=== PATIENT | female | born 1945 | race Caucasian/White ===

== ENCOUNTER 2017-01-07 00:08 | Emergency (ER) | payer OTHER, BC ==
[2017-01-07 01:05] VITALS: BP 129/77; PULSE 88; TEMP 97.9; BMI 28.2
[2017-01-07] MEDS ORDERED: INDOMETHACIN 50 MG CAPSULE PO ONE (01:25)
--- NOTE | 2017-01-07 01:26 | PDOC ---
History of Present Illness - General History Source: Patient Exam Limitations: No Limitations - History of Present Illness Initial Comments: 01/07/17 01:49 The patient is a 71 year old female with significant past medical history of parkinsons disease, hypertension, and gout who presents to the ED for few days of bilateral knee swelling, redness, and pain. Patient also reports pain to the right foot. Denies any trauma to the area. States she has pain upon ambulation, but is still able to ambulate. Patient states she is currently on colchicine. The patient denies fever, chills, cough, SOB, chest pain, and palpitations. The patient denies abdominal pain, nausea, vomiting, and diarrhea. Allergies: NKDA Social History: No alcohol, tobacco, or drug use reported. Past Surgical History: colectomy, appendectomy PCP: Dr. Regulo Flores Neuro: Dr. Truong Lundberg <Lucila Warren - Last Filed: 01/07/17 01:49> - General History Source: Patient <Azam Rai - Last Filed: 01/07/17 03:14> - General Chief Complaint: Pain, Acute Stated Complaint: LEG PAIN Time Seen by Provider: 01/07/17 01:23 Past History <Lucila Warren - Last Filed: 01/07/17 01:49> - Past Medical History Anemia: No Asthma: No Cancer: No Cardiac Disorders: No CVA: No COPD: No CHF: No Dementia: No Diabetes: No GI Disorders: No Disorders: No HTN: Yes Hypercholesterolemia: No Liver Disease: No Seizures: No Thyroid Disease: No - Surgical History Abdominal Surgery: Yes (COLECTOMY) Appendectomy: Yes Cardiac Surgery: No Cholecystectomy: No Lung Surgery: No Neurologic Surgery: No Orthopedic Surgery: No - Psycho/Social/Smoking Cessation Hx Anxiety: No Suicidal Ideation: No Smoking History: Never smoked Have you smoked in the past 12 months: No Information on smoking cessation initiated: No Hx Alcohol Use: No Drug/Substance Use Hx: No Substance Use Type: None Hx Substance Use Treatment: No <Azam Rai - Last Filed: 01/07/17 03:14> - Past Medical History Allergies/Adverse Reactions: Allergies Allergy/AdvReac Type Severity Reaction Status Date / Time No Known Drug Allergies Allergy Verified 12/12/16 14:54 sesame seed Allergy Mild flushing, Uncoded 08/23/14 11:04 itch Home Medications: Ambulatory Orders Ascorbic Acid [Vitamin C -] 1,000 mg PO DAILY 08/10/14 Aspirin [ASA -] 81 mg PO DAILY 08/10/14 Multivitamins [Multivit ([facility] Formulary)] 1 tab PO DAILY 08/10/14 Troy-3 Fatty Acids [Troy-3] 1,000 mg PO DAILY 08/10/14 Ubidecarenone/Vitamin E Mixed [Coq10 Sg 100 Softgel] 1 each PO DAILY 08/10/14 Vitamin B Complex 1 each PO DAILY 08/10/14 Indomethacin [Indocin -] 50 mg PO TID #90 capsule 01/07/17 Olmesartan/Amlodipin/Hcthiazid [Tribenzor 20-5-12.5 mg Tablet] 1 each PO DAILY 01/07/17 Pramipexole Di-HCl [Pramipexole ER] 3.75 mg PO DAILY 01/07/17 Review of Systems - Review of Systems Able to Perform ROS?: Yes Comments:: 01/07/17 01:49 CONSTITUTIONAL: Absent: fever, no chills, no fatigue EYES: Absent: visual changes ENT: Absent: ear pain, no sore throat CARDIOVASCULAR: Absent: chest pain, no palpitations RESPIRATORY: Absent: cough, no SOB GI: Absent: abdominal pain, no nausea, no vomiting, no constipation, no diarrhea GENITOURINARY: Absent: dysuria, no frequency, no hematuria MUSCULOSKELETAL: +bilateral knee pain, redness, and swelling, right foot pain SKIN: Absent: rash NEURO: Absent: headache <Bharrat,Lucila - Last Filed: 01/07/17 01:49> *Physical Exam - Vital Signs Last Vital Signs Temp Pulse Resp BP Pulse Ox 97.9 F 88 16 129/77 98 01/07/17 00:54 01/07/17 00:54 01/07/17 00:54 01/07/17 00:54 01/07/17 00:54 - Physical Exam Comments: 01/07/17 01:49 GENERAL: Well-appearing, well-nourished. No apparent distress. HEENT: Normocephalic, atraumatic. PERRL, EOM intact. CARDIOVASCULAR: Normal S1, S2. Regular rate and rhythm. PULMONARY: Clear to auscultation bilaterally. ABDOMEN: Soft, non-distended, non-tender. EXTREMITIES: Limited ROM of bilateral knees secondary to pain. Bilateral erythema and moderate swelling to both knees. No gross deformities. SKIN: Warm, dry. No rash NEUROLOGICAL: No focal neurological deficits. <Lucila Warren - Last Filed: 01/07/17 01:49> - Vital Signs Last Vital Signs Temp Pulse Resp BP Pulse Ox 97.9 F 88 16 129/77 98 01/07/17 00:54 01/07/17 00:54 01/07/17 00:54 01/07/17 00:54 01/07/17 00:54 <Azam Rai - Last Filed: 01/07/17 03:14> Medical Decision Making - Medical Decision Making 01/07/17 03:14 Dr. Rai: The scribe's documentation has been prepared under my direction and personally reviewed by me in its entirery. I confirm that the note above accurately reflects all work, treatment, procedures, and medical decision making performed by me. <Azam Rai - Last Filed: 01/07/17 03:14> *DC/Admit/Observation/Transfer - Attestations Scribe Attestion: 01/07/17 01:49 Documentation prepared by Lucila Warren, acting as medical assistant dermatology for Azam Rai MD/. <Lucila Warren - Last Filed: 01/07/17 01:49> - Discharge Dispostion Admit: No <Azam Rai - Last Filed: 01/07/17 03:14> Diagnosis at time of Disposition: Knee pain, bilateral Qualifiers: Chronicity: acute Qualified Code(s): M25.561 - Pain in right knee; M25.562 - Pain in left knee Gout Qualifiers: Gout site: knee Gout etiology: unspecified cause Laterality: unspecified laterality - Discharge Dispostion Disposition: HOME Condition at time of disposition: Improved - Prescriptions Prescriptions: Indomethacin [Indocin -] 50 mg PO TID #90 capsule - Referrals Referrals: Regulo Flores MD [Primary Care Provider] - - Patient Instructions Printed Discharge Instructions: DI for Gout, DI for Knee Pain Additional Instructions: take medication as directed with food. Follow up with your doctor as soon as possible. Return if any problems
[2017-01-07] MEDS ORDERED: INDOMETHACIN 25 MG CAPSULE PO ONE (01:30)
[2017-01-07] MEDS ORDERED: MAG HYDROX/AL HYDROX/SIMETH 30 ML UNIT-DOSE CUP ONE (02:17)
== END 2017-01-07 03:37 | disposition home or self-care (01) ==
LOC: JER 00:08
DX: M10.9 Gout, unspecified (principal); M25.562 Pain in left knee; M25.561 Pain in right knee; I10 Essential (primary) hypertension; G20 Parkinson's disease
CPT/HCPCS: 99281-25

== ENCOUNTER 2017-01-10 12:52 | Emergency (ER) | payer OTHER, BC ==
[2017-01-10 13:11] VITALS: BP 126/70; PULSE 98; TEMP 97.9; BMI 28.0
--- NOTE | 2017-01-10 13:12 | PDOC ---
History of Present Illness - General Chief Complaint: Tremors Stated Complaint: PARKINSON'S TREMOR Time Seen by Provider: 01/10/17 12:56 History Source: Patient, Spouse Exam Limitations: No Limitations - History of Present Illness Initial Comments: 01/10/17 13:09 The patient is a 71-year-old female with a significant past medical history of Parkinson's disease, who comes to the emergency department with several days of slowly increasing Parkinson symptoms. She describes shuffling gait, tremor, rigidity. She has not had fever. She is under the care of a neurologist who has been adjusting her medications, primarily by eliminating medications or decreasing doses. She states that she was taking Sinemet at high doses, followed by lower doses, until January 01 when the Sinemet was discontinued and she began to take pramipexole alone. Past History - Past Medical History Allergies/Adverse Reactions: Allergies Allergy/AdvReac Type Severity Reaction Status Date / Time No Known Drug Allergies Allergy Verified 01/07/17 03:27 sesame seed Allergy Mild flushing, Uncoded 01/07/17 03:27 itch Home Medications: Ambulatory Orders Ascorbic Acid [Vitamin C -] 1,000 mg PO DAILY 08/10/14 Aspirin [ASA -] 81 mg PO DAILY 08/10/14 Multivitamins [Multivit ([facility] Formulary)] 1 tab PO DAILY 08/10/14 Marshall-3 Fatty Acids [Marshall-3] 1,000 mg PO DAILY 08/10/14 Ubidecarenone/Vitamin E Mixed [Coq10 Sg 100 Softgel] 1 each PO DAILY 08/10/14 Vitamin B Complex 1 each PO DAILY 08/10/14 Indomethacin [Indocin -] 50 mg PO TID #90 capsule 01/07/17 Olmesartan/Amlodipin/Hcthiazid [Tribenzor 20-5-12.5 mg Tablet] 1 each PO DAILY 01/07/17 Pramipexole Di-HCl [Pramipexole ER] 3.75 mg PO DAILY 01/07/17 Anemia: No Asthma: No Cancer: No Cardiac Disorders: No CVA: No COPD: No CHF: No Dementia: No Diabetes: No GI Disorders: No Disorders: No HTN: Yes Hypercholesterolemia: No Liver Disease: No Seizures: No Thyroid Disease: No - Surgical History Abdominal Surgery: Yes (COLECTOMY) Appendectomy: Yes Cardiac Surgery: No Cholecystectomy: No Lung Surgery: No Neurologic Surgery: No Orthopedic Surgery: No - Psycho/Social/Smoking Cessation Hx Anxiety: No Suicidal Ideation: No Smoking History: Never smoked Have you smoked in the past 12 months: No Hx Alcohol Use: No Drug/Substance Use Hx: No Substance Use Type: None Hx Substance Use Treatment: No Review of Systems - Review of Systems Comments:: 01/10/17 13:11 CONSTITUTIONAL: Absent: fever, chills, fatigue EYES: Absent: visual changes ENT: Absent: ear pain, sore throat CARDIOVASCULAR: Absent: chest pain, palpitations, loss of consciousness RESPIRATORY: Absent: cough, SOB GI: Absent: abdominal pain, nausea, vomiting, constipation, diarrhea GENITOURINARY: Absent: dysuria, frequency, hematuria MUSKULOSKELETAL: Absent: back pain, arthralgia, myalgia SKIN: Absent: rash NEURO: Present: See history of present illness Absent: headache, dizziness *Physical Exam - Physical Exam Comments: 01/10/17 13:12 GENERAL: Well-appearing, well-nourished. No apparent distress. HEENT: Normocephalic, atraumatic. PERRL, EOM intact. CARDIOVASCULAR: Normal S1, S2. Regular rate and rhythm. PULMONARY: Clear to auscultation bilaterally. ABDOMEN: Soft, non-distended, non-tender. EXTREMITIES: Normal ROM in all four extremities. No gross deformities. SKIN: Warm, dry. No rash NEUROLOGICAL: She has a pill-rolling tremor She has a reptillian stare She has cogwheel rigidity in the extremities No focal neurological deficits. Medical Decision Making - Medical Decision Making 01/10/17 13:17 The patient is well-appearing and in no acute distress I discussed the case with Dr. Godinez, covering for Dr. Parnell He will see the patient in follow-up on Wednesday He suggests resumption of her Sinemet 25/103 times daily Clinical impression: Parkinson's disease I discussed the physical exam findings, ancillary test results and final diagnoses with the patient. I answered all of the patient's questions. The patient was satisfied with the care received and felt comfortable with the discharge plan and treatment plan. The patient will call their primary care physician within 24 hours to arrange follow-up and will return to the Emergency Department with any new, persistent or worsening symptoms. A portion of this note was documented by [employer] under my direction. I have reviewed the details of the note, within reason, and agree with the documentation with the following case summary and management plan written by me. *DC/Admit/Observation/Transfer Diagnosis at time of Disposition: Parkinsons disease - Discharge Dispostion Disposition: HOME Condition at time of disposition: Good - Referrals Referrals: Regulo Flores MD [Primary Care Provider] - - Patient Instructions Printed Discharge Instructions: Parkinson's Disease Additional Instructions: Take the Sinemet 25/103 times daily, as you used to take it. Return to the emergency department immediately with ANY new, persistent or worsening symptoms. You MUST call and follow up with your doctor tomorrow. Please make sure your doctor reviews the results of your emergency department evaluation.
== END 2017-01-10 13:25 | disposition home or self-care (01) ==
LOC: FER 12:52
DX: G20 Parkinson's disease (principal)
CPT/HCPCS: 99281-25

== ENCOUNTER 2018-04-03 12:55 | Emergency (ER) | payer OTHER, BC ==
[2018-04-03 13:27] VITALS: BP 115/74; PULSE 75; TEMP 98.1; BMI 29.0
--- NOTE | 2018-04-03 14:20 | PDOC ---
History of Present Illness <Maya Dailey - Last Filed: 04/03/18 17:33> - History of Present Illness Initial Comments: 04/03/18 14:16 72-year-old female with a history of Parkinson's disease presents to the emergency department with 3 weeks of unsteady gait after starting amantadine for Parkinson's. Patient reports she felt well the first week on the medication but after Dr. Parnell doubled the dose on day 7, she began to experience unsteadiness on her feet as well as 1 or 2 episodes of hallucinations. She reports the ability to walk normally most of the time, but then has a sensation that she is being pulled to the right or left. Reports the symptoms occur on both sides. With regards to the hallucinations, she states that she sees the wooden floor move for a few seconds at a time which then resolves. She has not had any falls. Patient has an appointment with Dr. Parnell tomorrow. She presents today because she states she hasn't felt well for the last 5 days and almost fell due to her unsteady gait today. Denies headaches, fevers, chills, chest pain, shortness of breath, cough, abdominal pain, nausea/vomiting/diarrhea, dysuria, frequency or hematuria. <Saji Glover - Last Filed: 04/04/18 07:36> - General Chief Complaint: Tremors Stated Complaint: POOR BALANCE Time Seen by Provider: 04/03/18 13:04 Past History <Maya Dailey - Last Filed: 04/03/18 17:33> - Past Medical History Anemia: No Asthma: No Cancer: No Cardiac Disorders: No CVA: No COPD: No CHF: No Dementia: No Diabetes: No GI Disorders: No Disorders: No HTN: Yes Hypercholesterolemia: No Liver Disease: No Seizures: No Thyroid Disease: No Other medical history: PARKINSON - Surgical History Abdominal Surgery: Yes (COLECTOMY) Appendectomy: Yes Cardiac Surgery: No Cholecystectomy: No Lung Surgery: No Neurologic Surgery: No Orthopedic Surgery: No - Suicide/Smoking/Psychosocial Hx Smoking History: Never smoked Have you smoked in the past 12 months: No Information on smoking cessation initiated: No Hx Alcohol Use: No Drug/Substance Use Hx: No Substance Use Type: None Hx Substance Use Treatment: No <Saji Glover - Last Filed: 04/04/18 07:36> - Past Medical History Allergies/Adverse Reactions: Allergies Allergy/AdvReac Type Severity Reaction Status Date / Time No Known Drug Allergies Allergy Verified 01/07/17 03:27 sesame seed Allergy Mild flushing, Uncoded 01/07/17 03:27 itch Home Medications: Ambulatory Orders Ascorbic Acid [Vitamin C -] 1,000 mg PO DAILY 08/10/14 Aspirin [ASA -] 81 mg PO DAILY 08/10/14 Multivitamins [Multivit ([facility] Formulary)] 1 tab PO DAILY 08/10/14 Vitamin B Complex 1 each PO DAILY 08/10/14 Olmesartan/Amlodipin/Hcthiazid [Tribenzor 20-5-12.5 mg Tablet] 1 each PO DAILY 01/07/17 Pramipexole Di-HCl [Pramipexole ER] 3.75 mg PO DAILY 01/07/17 Amantadine HCl [Gocovri] 137 mg PO BID 04/03/18 Carbidopa/Levodopa 25/100 [Sinemet 25/100 -] 1 each PO TID 04/03/18 Cephalexin [Keflex] 500 mg PO BID #14 capsule 04/03/18 Furosemide [Lasix] 20 mg PO Q2D 04/03/18 Glimepiride 1 mg PO DAILY 04/03/18 Potassium Chloride 10 meq PO Q2D 04/03/18 Review of Systems - Review of Systems Comments:: 04/03/18 14:18 GENERAL/CONSTITUTIONAL: No fever or chills. No weakness. HEAD, EYES, EARS, NOSE AND THROAT: No change in vision. No ear pain or discharge. No sore throat. GASTROINTESTINAL: No nausea, vomiting, diarrhea or constipation. GENITOURINARY: No dysuria, frequency, or change in urination. CARDIOVASCULAR: No chest pain or shortness of breath. RESPIRATORY: No cough, wheezing, or hemoptysis. MUSCULOSKELETAL: No joint or muscle swelling or pain. No neck or back pain. SKIN: No rash NEUROLOGIC: No headache, vertigo, loss of consciousness, or change in strength/ sensation. +unsteady gait ENDOCRINE: No increased thirst. No abnormal weight change. HEMATOLOGIC/LYMPHATIC: No anemia, easy bleeding, or history of blood clots. ALLERGIC/IMMUNOLOGIC: No hives or skin allergy. PSYCH: +hallucinations <Saji Glover - Last Filed: 04/04/18 07:36> *Physical Exam - Vital Signs Last Vital Signs Temp Pulse Resp BP Pulse Ox 98.1 F 75 20 115/74 100 04/03/18 12:58 04/03/18 12:58 04/03/18 12:58 04/03/18 12:58 04/03/18 12:58 <AnitakennethMaya craft - Last Filed: 04/03/18 17:33> - Vital Signs Last Vital Signs Temp Pulse Resp BP Pulse Ox 98.1 F 75 20 115/74 100 04/03/18 12:58 04/03/18 12:58 04/03/18 12:58 04/03/18 12:58 04/03/18 12:58 - Physical Exam Comments: 04/03/18 14:20 GENERAL: Awake, alert, and fully oriented, in no acute distress HEAD: No signs of trauma EYES: PERRLA, EOMI, sclera anicteric, conjunctiva clear ENT: Oropharynx clear without exudates. Moist mucosa LUNGS: Breath sounds equal, clear to auscultation bilaterally. No wheezes, and no crackles HEART: Regular rate and rhythm, normal S1 and S2, no murmurs, rubs or gallops ABDOMEN: Soft, nontender, normoactive bowel sounds. No guarding, no rebound. No masses EXTREMITIES: Full range of motion, no edema. No clubbing or cyanosis. No cords , erythema, or tenderness NEUROLOGICAL: Normal speech, cranial nerves intact, negative pronator drift, 5/ 5 strength in all 4 extremities, normal sensation to light touch in all 4 extremities, normal cerebellar exam, shuffling but mostly steady gait - at one point, pt needed assistance so as not to fall to her right, +LUE pill rolling tremor. Increased tone in all extremities SKIN: Warm, Dry, normal turgor, no rashes or lesions noted. <Saji Glover - Last Filed: 04/04/18 07:36> Heart Score/ECG Review #1 04/04/18 07:35 Twelve-lead EKG was performed and reviewed by me. Normal sinus rhythm, rate 93. Normal axis and intervals. No ST elevations or T-wave inversions. <Saji Glover - Last Filed: 04/04/18 07:36> ED Treatment Course - LABORATORY CBC & Chemistry Diagram: 04/03/18 14:45 04/03/18 14:45 - ADDITIONAL ORDERS Additional order review: Laboratory Results 04/03/18 04/03/18 04/03/18 15:00 14:45 14:45 Sodium 137 Potassium 3.8 Chloride 101 Carbon Dioxide 25 Anion Gap 11 BUN 53 H Creatinine 2.2 H Creat Clearance w eGFR 22.07 Random Glucose 137 H Calcium 10.1 Total Bilirubin 0.9 AST 21 ALT 9 L Alkaline Phosphatase 80 Troponin I < 0.03 Total Protein 7.8 Albumin 4.6 Urine Color Yellow Urine Appearance Hazy Urine pH 5.0 Ur Specific [place] 1.015 Urine Protein Negative Urine Glucose (UA) Negative Urine Ketones Negative Urine Blood Trace-intact H Urine Nitrite Negative Urine Bilirubin Negative Urine Urobilinogen 0.2 Ur Leukocyte Esterase 3+ H Urine RBC 2-5 Urine WBC 40-60 Ur Epithelial Cells Few Urine Bacteria Moderate 04/03/18 14:45 RBC 4.47 MCV 93.1 MCHC 32.2 RDW 12.7 MPV 8.5 Neutrophils % 69.2 Lymphocytes % 23.4 Monocytes % 6.5 Eosinophils % 0.3 Basophils % 0.6 <Maya Dailey - Last Filed: 04/03/18 17:33> - LABORATORY CBC & Chemistry Diagram: 04/03/18 14:45 04/03/18 14:45 - RADIOLOGY Radiology Studies Ordered: Category Date Time Status HEAD CT WITHOUT CONTRAST [CT] Stat CT Scan 04/03/18 14:12 Ordered <Saji Glover - Last Filed: 04/04/18 07:36> Medical Decision Making - Medical Decision Making 04/03/18 17:33 Dr. Armijo was called and this patient's case was discussed. <Maya Dailey - Last Filed: 04/03/18 17:33> - Medical Decision Making 04/03/18 14:24 72yo F hx parkinsons presents to the ED with 3 weeks of unsteady gait and intermittent hallucinations after starting amantadine. Vitals wnl. Exam tremors , rigidity, shuffling gait, some unsteadiness consistent with known parkinsons disease. Sxs likely 2/2 medication side effect vs progression of disease vs much less likely, CVA. Plan labs, UA, CTH, discuss with Dr. Parnell. 04/03/18 18:15 CT head negative for acute pathology. Labs remarkable for creatinine of 2.2 and BUN of 53. Previous print controller in our EMR from years ago wnl. UA with 3+ LE and 40 WBCs, consistent with UTI Symptoms likely 2/2 medication and UTI Case discussed with Dr. Dao (covering for Dr. Parnell) Recommends decreasing Gocovri to half dose again Also recommends admission if pt lives alone for safety (due to gait unsteadiness ), pt lives with and sons. Case discussed with pt's PMD Dr. Armijo Nail Machine Operator has been hovering around 1.6 to 2 and thus 2.2 is not far off her baseline Recommends hydrating with 1L NS, which has been given. Wants us to DC pt and have her see him tomorrow Will treat UTI with keflex (bactrim with interactions with carbidopa) Pt also instructed to take half dose Gocovri Has f/u with Dr. Parnell tomorrow and Dr. Armijo is expecting her as well Pt feels better, requests DC home I discussed the physical exam findings, ancillary test results and final diagnoses with the patient. I answered all of the patient's questions. The patient was satisfied with the care received and felt comfortable with the discharge plan and treatment plan. The patient will call their primary care physician within 24 hours to arrange follow-up and will return to the Emergency Department with any new, persistent or worsening symptoms. <Saji Glover - Last Filed: 04/04/18 07:36> *DC/Admit/Observation/Transfer <Maya Dailey - Last Filed: 04/03/18 17:33> - Discharge Dispostion Decision to Admit order: No - Attestations Physician Attestion: 04/03/18 18:27 I, Dr. Saji Glover MD, attest that this document has been prepared under my direction and personally reviewed by me in its entirety. I further attest, that it accurately reflects all work, treatment, procedures and medical decision -making performed by me. <Saji Glover - Last Filed: 04/04/18 07:36> Diagnosis at time of Disposition: UTI (urinary tract infection), CKD (chronic kidney disease), Adverse drug effect - Discharge Dispostion Disposition: HOME Condition at time of disposition: Stable - Prescriptions Prescriptions: Cephalexin [Keflex] 500 mg PO BID #14 capsule - Patient Instructions Printed Discharge Instructions: DI for Urinary Tract Infection (UTI), DI for Adverse Drug Reaction -- Other Additional Instructions: As discussed, cut your Gocovri dose in half. Take the same dose you took when you initially started the medication Follow up with Dr. Parnell tomorrow as scheduled at 11am Also, follow up with Dr. Armijo tomorrow, call his office in the morning as he is expecting you Stay hydrated Be careful when walking and use a cane for assistance Return to the emergency department if you have any new, worsening, or concerning symptoms
[2018-04-03 15:03] LABS: BASO % 0.6 % (0-2.0); EOS % 0.3 % (0-4.5); HEMATOCRIT 41.6 % (32.4-45.2); HEMOGLOBIN 13.4 GM/dl (10.7-15.3); LYMPH % 23.4 % (8-40); MCHC 32.2 g/dl (32.0-36.0); MEAN CELL VOLUME 93.1 fl (80-96); MEAN PLT VOLUME 8.5 fl (7.5-11.1); MONO % 6.5 % (3.8-10.2); NEUT % 69.2 % (42.8-82.8); PLATELET COUNT 252 K/MM3 (134-434); RBC 4.47 M/mm3 (3.60-5.2); RDW 12.7 % (11.6-15.6); WHITE BLOOD COUNT 8.3 K/mm3 (4.0-10.8)
[2018-04-03 15:13] LABS: URINE BILIRUBIN Negative (NEGATIVE); URINE COLOR Yellow; URINE GLUCOSE (UA) Negative (NEGATIVE); URINE KETONE Negative (NEGATIVE); URINE NITRITE Negative (NEGATIVE); URINE PROTEIN Negative (NEGATIVE); URINE UROBILINOGEN 0.2 (0.2-1.0)
[2018-04-03 15:14] LABS: URINE APPEARANCE HAZY; URINE LEUK ESTERASE 3+ (NEGATIVE)
[2018-04-03 15:15] LABS: ALBUMIN 4.6 g/dl (3.5-5.0); ALK PHOS 80 U/L (32-92); ANION GAP 11 MMOL/L (8-16); BILIRUBIN,TOTAL 0.9 mg/dl (0.2-1.0); BLOOD UREA NITROGEN 53 mg/dl (7-18); CALCIUM 10.1 mg/dl (8.4-10.2); CHLORIDE 101 mmol/L (98-107); CO2 25 mmol/L (22-28); CREATININE 2.2 mg/dl (0.6-1.3); GLUCOSE,RANDOM 137 mg/dl (74-106); POTASSIUM 3.8 mmol/L (3.5-5.1); SGOT/AST 21 U/L (10-42); SGPT/ALT 9 U/L (10-40); SODIUM 137 mmol/L (136-145); TOT PROT 7.8 g/dl (6.4-8.3)
[2018-04-03 15:39] LABS: EPI CELLS FEW /HPF; URINE BACTERIA MODERATE /hpf (NEGATIVE); URINE WBC 40-60 (0-5)
[2018-04-03] MEDS ORDERED: SODIUM CHLORIDE 1,000 ML IV STA (17:37)
--- NOTE | 2018-04-04 12:18 | EKG ---
Test Reason : Blood Pressure : / mmHG Vent. Rate : 093 BPM Atrial Rate : 093 BPM P-R Int : 186 ms QRS Dur : 086 ms QT Int : 348 ms P-R-T Axes : 000 -10 041 degrees QTc Int : 432 ms NORMAL SINUS RHYTHM MODERATE VOLTAGE CRITERIA FOR LVH, MAY BE NORMAL VARIANT BORDERLINE ECG WHEN COMPARED WITH ECG OF 10-AUG-2014 14:23, NO SIGNIFICANT CHANGE WAS FOUND Confirmed by JODY BROWER MD ([id number]) on 04/04/2018 12:17:46 PM Referred By: DR STRONG Confirmed By:JODY BROWER MD
== END 2018-04-03 18:56 | disposition home or self-care (01) ==
LOC: FER 12:55
PROC: 3E0337Z Introduction of Electrolytic and Water Balance Substance into Peripheral Vein, Percutaneous Approach (ICD-10-PCS; principal; 2018-04-03)
DX: N39.0 Urinary tract infection, site not specified (principal); T50.905A Adverse effect of unspecified drugs, medicaments and biological substances, initial encounter; Y92.9 Unspecified place or not applicable; N18.9 Chronic kidney disease, unspecified
CPT/HCPCS: 36415; 70450-TC; 80053; 81003; 81015; 84484; 85025; 87086; 87186; 93005; 99281-25; J7030

== ENCOUNTER 2018-06-20 10:18 | Emergency (ER) | payer OTHER, BC ==
--- NOTE | 2018-06-20 10:36 | PDOC ---
Attending Attestation - Resident Resident Name: RenyJuve - ED Attending Attestation I have performed the following: I have examined & evaluated the patient, The case was reviewed & discussed with the resident, I agree w/resident's findings & plan, Exceptions are as noted - HPI HPI: 73 yo F history Parkinson's disease presents with swelling to BLE. She states she has been taking Gocovri, has been getting swelling in her legs that she attributes to it. No other changes in medication. She follows with Dr. Parnell for neuro and Dr. Craft for renal. She has been taking lasix as prescribed. - Physicial Exam PE: GENERAL: Awake, alert, and fully oriented, in no acute distress HEAD: No signs of trauma EYES: PERRLA, EOMI, sclera anicteric, conjunctiva clear ENT: Auricles normal inspection, hearing grossly normal, nares patent, oropharynx clear without exudates. Moist mucosa NECK: Normal ROM, supple, no lymphadenopathy, JVD, or masses LUNGS: Breath sounds equal, clear to auscultation bilaterally. No wheezes, and no crackles HEART: Regular rate and rhythm, normal S1 and S2, no murmurs, rubs or gallops ABDOMEN: Soft, nontender, normoactive bowel sounds. No guarding, no rebound. No masses EXTREMITIES: Normal range of motion, 2+ pitting edema to feet and ankles B/L. No clubbing or cyanosis. No cords, erythema, or tenderness NEUROLOGICAL: Cranial nerves II through XII grossly intact. Normal speech, normal gait. Motor and sensation intact. SKIN: Warm, Dry, normal turgor, no rashes or lesions noted. - Medical Decision Making Pt with progressive BLE edema that has been causing pain when she walks. It has been attributed to her Parkinson's medication, and she takes lasix for it. No signs of renal failure or CHF on exam (and on labs). D/w Dr. Craft- recommended 80mg lasix IVP. He has an appointment with her tomorrow.
[2018-06-20 10:40] VITALS: BP 153/77; PULSE 80; TEMP 97.8; BMI 29.9
[2018-06-20 11:16] LABS: BASO % 0.4 % (0-2.0); EOS % 0.3 % (0-4.5); HEMATOCRIT 35.3 % (32.4-45.2); HEMOGLOBIN 11.9 GM/dl (10.7-15.3); LYMPH % 16.3 % (8-40); MCH 30.3 pg (25.7-33.7); MCHC 33.6 g/dl (32.0-36.0); MEAN PLT VOLUME 7.7 fl (7.5-11.1); MONO % 4.6 % (3.8-10.2); NEUT % 78.4 % (42.8-82.8); PLATELET COUNT 245 K/MM3 (134-434); RBC 3.92 M/mm3 (3.60-5.2); RDW 12.6 % (11.6-15.6); WHITE BLOOD COUNT 9.2 K/mm3 (4.0-10.8)
--- NOTE | 2018-06-20 11:27 | PDOC ---
History of Present Illness <Radha Wray - Last Filed: 06/20/18 13:37> - General History Source: Patient Exam Limitations: No Limitations - History of Present Illness Initial Comments: 06/20/18 11:17 73 yo female pmh of Parkinson, CKD, borderline diabetes and HTN presents to the ED for 2 weeks of bilateral foot swelling, right worse than left Pt states she takes medications as prescribed including 60mg furosemide daily but within the last week the swelling has gotten progressively worse despite this. Pt states she saw her Pole Maker today who advised her to visit the ER for the swelling. Of note, pt has a follow up appointment with Nephrology (Dr. Arlene Craft) at 11 45 am tomorrow morning. Pt denies recent travel or immobility, calf or foot pain, CP, SOB, PND, F/C/N/V, abdominal pain or changes in bowel/bladder habits. <Juve Oglesby - Last Filed: 06/20/18 14:04> - General Chief Complaint: Edema Stated Complaint: GARRICK FOOT SWELLING, R > L, PAIN Time Seen by Provider: 06/20/18 10:29 Past History <Radha Wray - Last Filed: 06/20/18 13:37> - Past Medical History Anemia: No Asthma: No Cancer: No Cardiac Disorders: No CVA: No COPD: No CHF: No Dementia: No Diabetes: No GI Disorders: No Disorders: No HTN: Yes Hypercholesterolemia: No Liver Disease: No Seizures: No Thyroid Disease: No Other medical history: PARKINSON'S, ENDOMETRIOSIS - Surgical History Abdominal Surgery: Yes (COLECTOMY) Appendectomy: Yes Cardiac Surgery: No Cholecystectomy: No Lung Surgery: No Neurologic Surgery: No Orthopedic Surgery: No - Suicide/Smoking/Psychosocial Hx Smoking History: Never smoked Have you smoked in the past 12 months: No Hx Alcohol Use: No Drug/Substance Use Hx: No Substance Use Type: None Hx Substance Use Treatment: No <Juve Oglesby - Last Filed: 06/20/18 14:04> - Past Medical History Allergies/Adverse Reactions: Allergies Allergy/AdvReac Type Severity Reaction Status Date / Time No Known Drug Allergies Allergy Verified 06/20/18 10:20 sesame seed Allergy Mild flushing, Uncoded 06/20/18 10:20 itch Home Medications: Ambulatory Orders Carbidopa/Levodopa 25/100 [Sinemet 25/100 -] 1 each PO HS 06/20/18 Carbidopa/Levodopa [Sinemet 10-100 mg Tablet] 1 each PO QID 06/20/18 Furosemide 60 mg PO DAILY 06/20/18 Glimepiride 1 mg PO DAILY 06/20/18 Metoprolol Succinate [Toprol Xl] 50 mg PO BID 06/20/18 Multivitamin [One Daily] 1 each PO DAILY 06/20/18 Potassium Chloride [K-Dur -] 10 meq PO DAILY 06/20/18 Pramipexole Di-HCl [Pramipexole ER] 0.375 mg PO DAILY 06/20/18 Review of Systems - Review of Systems Constitutional: No: Chills, Fever Respiratory: No: Orthopnea, Shortness of Breath Cardiac (ROS): Yes: Edema (bilateral feet). No: Chest Pain ABD/GI: No: Constipated, Diarrhea, Nausea, Vomiting : No: Burning, Dysuria Musculoskeletal: No: Muscle Pain, Muscle Weakness Integumentary: No: Change in Color, Erythema Neurological: No: Weakness <Juve Oglesby - Last Filed: 06/20/18 14:04> *Physical Exam - Vital Signs Last Vital Signs Temp Pulse Resp BP Pulse Ox 97.8 F 80 18 153/77 99 06/20/18 10:18 06/20/18 10:18 06/20/18 10:18 06/20/18 10:18 06/20/18 10:18 <Radha Wray - Last Filed: 06/20/18 13:37> - Vital Signs Last Vital Signs Temp Pulse Resp BP Pulse Ox 97.8 F 80 18 153/77 99 06/20/18 10:18 06/20/18 10:18 06/20/18 10:18 06/20/18 10:18 06/20/18 10:18 - Physical Exam General Appearance: Yes: Nourished, Appropriately Dressed. No: Apparent Distress HEENT: positive: EOMI Respiratory/Chest: positive: Lungs Clear, Normal Breath Sounds. negative: Crackles, Rhonchi, Wheezing Cardiovascular: positive: Regular Rhythm, Regular Rate, S1, S2, Edema (1+ pitting bilateral feet). negative: JVD, Murmur Vascular Pulses: Dorsalis-Pedis (R): 3+, Doralis-Pedis (L): 3+ Gastrointestinal/Abdominal: positive: Flat, Soft. negative: Pulsatile Mass, Distended, Guarding, Rebound, Tenderness Extremity: positive: Normal Capillary Refill, Other (no warmth). negative: Erythema, Inflammation Integumentary: positive: Normal Color, Dry, Warm Neurologic: positive: Fully Oriented, Alert, Normal Mood/Affect, Normal Response <Juve Oglesby - Last Filed: 06/20/18 14:04> Moderate Sedation - Procedure Monitoring Vital Signs: Procedure Monitoring Vital Signs Temperature 97.8 F 06/20/18 10:18 Pulse Rate 80 06/20/18 10:18 Respiratory Rate 18 06/20/18 10:18 Blood Pressure 153/77 06/20/18 10:18 O2 Sat by Pulse Oximetry (%) 99 06/20/18 10:18 <Radha Wray - Last Filed: 06/20/18 13:37> - Procedure Monitoring Vital Signs: Procedure Monitoring Vital Signs Temperature 97.8 F 06/20/18 10:18 Pulse Rate 80 06/20/18 10:18 Respiratory Rate 18 06/20/18 10:18 Blood Pressure 153/77 06/20/18 10:18 O2 Sat by Pulse Oximetry (%) 99 06/20/18 10:18 <Juve Oglesby - Last Filed: 06/20/18 14:04> ED Treatment Course - LABORATORY CBC & Chemistry Diagram: 06/20/18 11:07 06/20/18 11:07 - ADDITIONAL ORDERS Additional order review: Laboratory Results 06/20/18 11:07 Sodium 138 Potassium 3.7 Chloride 99 Carbon Dioxide 29 H Anion Gap 10 BUN 30 H Creatinine 1.3 Creat Clearance w eGFR 40.38 Random Glucose 220 H D Calcium 9.2 Total Bilirubin 0.8 AST 16 D ALT < 8 L Alkaline Phosphatase 98 H B-Natriuretic Peptide 128.8 H Total Protein 6.9 Albumin 3.6 06/20/18 11:07 RBC 3.92 MCV 90.0 MCHC 33.6 RDW 12.6 MPV 7.7 Neutrophils % 78.4 Lymphocytes % 16.3 Monocytes % 4.6 Eosinophils % 0.3 Basophils % 0.4 - Medications Given in the ED: ED Medications Discontinued Medications Generic Name Dose Route Start Last Admin Trade Name Freq PRN Reason Stop Dose Admin Furosemide 80 mg 06/20/18 12:58 06/20/18 13:17 Lasix Injection - IVPB 06/20/18 12:59 80 mg ONCE ONE Administration <Radha Wray - Last Filed: 06/20/18 13:37> - LABORATORY CBC & Chemistry Diagram: 06/20/18 11:07 06/20/18 11:07 <Juve Oglesby - Last Filed: 06/20/18 14:04> Medical Decision Making - Medical Decision Making 06/20/18 12:[address] Craft who would like the patient to be given 80 mg IV lasix and if stable can follow up with him tomorrow for her appointment at 11:45 am <Juve Oglesby - Last Filed: 06/20/18 14:04> *DC/Admit/Observation/Transfer - Discharge Dispostion Decision to Admit order: No <Radha Wray - Last Filed: 06/20/18 13:37> <Juve Oglesby - Last Filed: 06/20/18 14:04> Diagnosis at time of Disposition: Peripheral edema - Discharge Dispostion Disposition: HOME Condition at time of disposition: Stable - Patient Instructions Printed Discharge Instructions: DI for Peripheral Edema -- Bilateral Additional Instructions: Please make appointment with your Family Doctor within the next 24-48 hours. Keep and make it to your appointment tomorrow at 11 45 am with nephrology. Return to the Emergency Room for new or worsening symptoms including but not limited to: shortness of breath, wheezing, calf tenderness, chest pain. Continue taking your home dosed medications including Furosemide. Thank you
[2018-06-20 11:46] LABS: ALBUMIN 3.6 g/dl (3.5-5.0); ALK PHOS 98 U/L (32-92); ANION GAP 10 MMOL/L (8-16); BILIRUBIN,TOTAL 0.8 mg/dl (0.2-1.0); BLOOD UREA NITROGEN 30 mg/dl (7-18); CALCIUM 9.2 mg/dl (8.4-10.2); CHLORIDE 99 mmol/L (98-107); CO2 29 mmol/L (22-28); CREATININE 1.3 mg/dl (0.6-1.3); GLUCOSE,RANDOM 220 mg/dl (74-106); POTASSIUM 3.7 mmol/L (3.5-5.1); SGOT/AST 16 U/L (10-42); SODIUM 138 mmol/L (136-145); TOT PROT 6.9 g/dl (6.4-8.3)
[2018-06-20 11:53] LABS: SGPT/ALT < 8 U/L (10-40)
[2018-06-20 12:29] LABS: N-TERMINAL BNP 128.8 pg/ml (5-125)
[2018-06-20] MEDS ORDERED: FUROSEMIDE 100 MG/10 ML INJECTABLE VIAL IVPB ONE (12:58)
[2018-06-20] MEDS ORDERED: FUROSEMIDE 40 MG/4 ML INJECTABLE VIAL ONE (13:02)
== END 2018-06-20 14:09 | disposition home or self-care (01) ==
LOC: FER 10:18
PROC: 3E033GC Introduction of Other Therapeutic Substance into Peripheral Vein, Percutaneous Approach (ICD-10-PCS; principal; 2018-06-20)
DX: R73.03 Prediabetes (principal); G20 Parkinson's disease; I12.9 Hypertensive chronic kidney disease with stage 1 through stage 4 chronic kidney disease, or unspecified chronic kidney disease; N18.9 Chronic kidney disease, unspecified
CPT/HCPCS: 36415; 80053; 83880; 85025; 96374; 99284-25

== ENCOUNTER 2018-06-27 15:18 | Inpatient (IN) | payer OTHER, BC ==
--- NOTE | 2018-06-27 15:43 | PDOC ---
Rapid Medical Evaluation Chief Complaint: Pain, Acute Time Seen by Provider: 06/27/18 15:38 Medical Evaluation: Allergies Allergy/AdvReac Type Severity Reaction Status Date / Time No Known Drug Allergies Allergy Verified 06/20/18 10:20 sesame seed Allergy Mild flushing, Uncoded 06/20/18 10:20 itch 06/27/18 15:38 I have performed a brief in-person evaluation of this patient. The patient presents with a chief complaint of:bilateral leg pain / + parkinsons Pertinent physical exam findings: +peripheral edema with blistering. ? redness/ was seen at [place] last week for same and started on Lasix I have ordered the following: Cmp/ CbC/ BNP The patient will proceed to the ED for further evaluation. Discharge Disposition - Diagnosis Leg pain Qualifiers: Laterality: bilateral Qualified Code(s): M79.604 - Pain in right leg; M79.605 - Pain in left leg - Referrals Referrals: Fermín Tristan MD [Primary Care Provider] - - Patient Instructions - Post Discharge Activity
[2018-06-27 16:20] LABS: BASO % 0.4 % (0-2.0); EOS % 0.4 % (0-4.5); HEMATOCRIT 34.2 % (32.4-45.2); LYMPH % 15.1 % (8-40); MCH 30.6 pg (25.7-33.7); MEAN CELL VOLUME 87.5 fl (80-96); MEAN PLT VOLUME 7.8 fl (7.5-11.1); MONO % 7.2 % (3.8-10.2); NEUT % 76.9 % (42.8-82.8); PLATELET COUNT 265 K/MM3 (134-434); RBC 3.91 M/mm3 (3.60-5.2); RDW 13.1 % (11.6-15.6); WHITE BLOOD COUNT 9.7 K/mm3 (4.0-10.0)
[2018-06-27 16:57] LABS: ALBUMIN 3.4 g/dl (3.4-5.0); ALK PHOS 120 U/L (45-117); ANION GAP 9 MMOL/L (8-16); BILIRUBIN,TOTAL 0.5 mg/dL (0.2-1); BLOOD UREA NITROGEN 25 mg/dL (7-18); CALCIUM 8.8 mg/dL (8.5-10.1); CHLORIDE 101 mmol/L (98-107); CO2 28 mmol/L (21-32); CREATININE 1.3 mg/dL (0.55-1.3); GLUCOSE,RANDOM 169 mg/dL (74-106); N-TERMINAL BNP 211.4 pg/ml (5-125); POTASSIUM 3.5 mmol/L (3.5-5.1); SGOT/AST 15 U/L (15-37); SGPT/ALT 8 U/L (13-61); SODIUM 138 mmol/L (136-145); TOT PROT 7.2 g/dl (6.4-8.2)
--- NOTE | 2018-06-27 17:29 | PDOC ---
History of Present Illness <Pura Bean - Last Filed: 06/27/18 17:36> - General History Source: Patient Exam Limitations: No Limitations - History of Present Illness Initial Comments: 06/27/18 18:07 The patient is a 73 year old female, with a significant past medical history of chronic renal insufficiency and Parkinsons disease, who presents to the emergency department with increasing bilateral lower extremity edema for the past 3 weeks. The patient most recently saw her PCP (Dr. Armijo) four days ago and has been taking 60 mg Lasix daily. She presents to the emergency department today because the lower extremity edema is causing her increasing pain. The patient denies fever, chills, shortness of breath or chest pain. Allergies: None reported. Past Surgical History: Appendectomy; Colectomy. Social History: Non-smoker. Denies alcohol or drug use. PCP: Dr. Armijo <Dolores Singh - Last Filed: 06/27/18 18:38> - General Chief Complaint: Edema Stated Complaint: LEG PAIN Time Seen by Provider: 06/27/18 15:38 Past History - Past Medical History Anemia: No Asthma: No Cancer: No Cardiac Disorders: No CVA: No COPD: No CHF: No Dementia: No Diabetes: No GI Disorders: No Disorders: No HTN: Yes Hypercholesterolemia: No Liver Disease: No Seizures: No Thyroid Disease: No - Surgical History Abdominal Surgery: Yes (COLECTOMY) Appendectomy: Yes Cardiac Surgery: No Cholecystectomy: No Lung Surgery: No Neurologic Surgery: No Orthopedic Surgery: No - Immunization History Immunization Up to Date: No - Suicide/Smoking/Psychosocial Hx Smoking History: Never smoked Have you smoked in the past 12 months: No Information on smoking cessation initiated: No Hx Alcohol Use: No Drug/Substance Use Hx: No Substance Use Type: None Hx Substance Use Treatment: No <Pura Bean - Last Filed: 06/27/18 17:36> <Dolores Singh - Last Filed: 06/27/18 18:38> - Past Medical History Allergies/Adverse Reactions: Allergies Allergy/AdvReac Type Severity Reaction Status Date / Time No Known Drug Allergies Allergy Verified 06/20/18 10:20 sesame seed Allergy Mild flushing, Uncoded 06/20/18 10:20 itch Home Medications: Ambulatory Orders Carbidopa/Levodopa 25/100 [Sinemet 25/100 -] 1 each PO HS 06/20/18 Carbidopa/Levodopa [Sinemet 10-100 mg Tablet] 1 each PO QID 06/20/18 Furosemide 60 mg PO DAILY 06/20/18 Glimepiride 1 mg PO DAILY 06/20/18 Metoprolol Succinate [Toprol Xl] 50 mg PO BID 06/20/18 Multivitamin [One Daily] 1 each PO DAILY 06/20/18 Potassium Chloride [K-Dur -] 10 meq PO DAILY 06/20/18 Pramipexole Di-HCl [Pramipexole ER] 0.375 mg PO DAILY 06/20/18 Review of Systems - Review of Systems Able to Perform ROS?: Yes Comments:: 06/27/18 18:08 GENERAL/CONSTITUTIONAL: No fever or chills. No weakness. HEAD, EYES, EARS, NOSE AND THROAT: No change in vision. No ear pain or discharge. No sore throat. CARDIOVASCULAR: No chest pain or shortness of breath. RESPIRATORY: No cough, wheezing, or hemoptysis. GASTROINTESTINAL: No nausea, vomiting, diarrhea or constipation. GENITOURINARY: No dysuria, frequency, or change in urination. MUSCULOSKELETAL: No joint or muscle swelling or pain. No neck or back pain. EXTREMITY: +Bilateral lower extremity edema. SKIN: +Right lower extremity erythema. NEUROLOGIC: No headache, vertigo, loss of consciousness, or change in strength/ sensation. ENDOCRINE: No increased thirst. No abnormal weight change. HEMATOLOGIC/LYMPHATIC: No anemia, easy bleeding, or history of blood clots. ALLERGIC/IMMUNOLOGIC: No hives or skin allergy. <Dolores Singh - Last Filed: 06/27/18 18:38> *Physical Exam - Vital Signs Last Vital Signs Temp Pulse Resp BP Pulse Ox 98.4 F 93 H 16 117/76 95 06/27/18 15:39 06/27/18 15:39 06/27/18 15:39 06/27/18 15:39 06/27/18 15:39 <Pura Bean - Last Filed: 06/27/18 17:36> - Vital Signs Last Vital Signs Temp Pulse Resp BP Pulse Ox 98.4 F 93 H 16 117/76 95 06/27/18 15:39 06/27/18 15:39 06/27/18 15:39 06/27/18 15:39 06/27/18 15:39 - Physical Exam Comments: 06/27/18 18:03 GENERAL: Awake, alert, and fully oriented, in no acute distress. HEAD: No signs of trauma. EYES: PERRLA, EOMI, sclera anicteric, conjunctiva clear. ENT: Auricles normal inspection, hearing grossly normal, nares patent, oropharynx clear without exudates. Moist mucosa. NECK: Normal ROM, supple, no lymphadenopathy, JVD, or masses. LUNGS: Breath sounds equal, clear to auscultation bilaterally. No wheezes, no crackles, no rales. HEART: Regular rate and rhythm, normal S1 and S2, no murmurs, rubs or gallops. ABDOMEN: Protuberant abdomen. Soft, nontender, normoactive bowel sounds. No guarding, no rebound. No masses. EXTREMITIES: +2 bilateral lower extremity edema. Normal range of motion. No clubbing or cyanosis. NEUROLOGICAL: Cranial nerves II through XII intact. Normal speech, gait deferred. SKIN: Erythema of the bilateral feet and right leg with an overlying 3cm blister to the right lower extremity. Warm, dry, normal turgor. <Dolores Singh - Last Filed: 06/27/18 18:38> Moderate Sedation - Procedure Monitoring Vital Signs: Procedure Monitoring Vital Signs Temperature 98.4 F 06/27/18 15:39 Pulse Rate 93 H 06/27/18 15:39 Respiratory Rate 16 06/27/18 15:39 Blood Pressure 117/76 06/27/18 15:39 O2 Sat by Pulse Oximetry (%) 95 06/27/18 15:39 <Pura Bean - Last Filed: 06/27/18 17:36> - Procedure Monitoring Vital Signs: Procedure Monitoring Vital Signs Temperature 98.4 F 06/27/18 15:39 Pulse Rate 93 H 06/27/18 15:39 Respiratory Rate 16 06/27/18 15:39 Blood Pressure 117/76 06/27/18 15:39 O2 Sat by Pulse Oximetry (%) 95 06/27/18 15:39 <Dolores Singh - Last Filed: 06/27/18 18:38> ED Treatment Course - LABORATORY CBC & Chemistry Diagram: 06/27/18 15:53 06/27/18 15:53 - ADDITIONAL ORDERS Additional order review: Laboratory Results 06/27/18 15:53 Sodium 138 Potassium 3.5 Chloride 101 Carbon Dioxide 28 Anion Gap 9 BUN 25 H Creatinine 1.3 Creat Clearance w eGFR 40.38 Random Glucose 169 H Calcium 8.8 Total Bilirubin 0.5 AST 15 ALT 8 L Alkaline Phosphatase 120 H B-Natriuretic Peptide 211.4 H Total Protein 7.2 Albumin 3.4 06/27/18 15:53 RBC 3.91 MCV 87.5 MCHC 35.0 RDW 13.1 MPV 7.8 D Neutrophils % 76.9 D Lymphocytes % 15.1 D Monocytes % 7.2 Eosinophils % 0.4 Basophils % 0.4 - RADIOLOGY Radiology Studies Ordered: Category Date Time Status DUPLEX VASCUL US-1 LEG [US] Stat Ultrasound 06/27/18 17:16 Ordered <Pura Bean - Last Filed: 06/27/18 17:36> - LABORATORY CBC & Chemistry Diagram: 06/27/18 15:53 06/27/18 15:53 - ADDITIONAL ORDERS Additional order review: Laboratory Results 06/27/18 15:53 Sodium 138 Potassium 3.5 Chloride 101 Carbon Dioxide 28 Anion Gap 9 BUN 25 H Creatinine 1.3 Creat Clearance w eGFR 40.38 Random Glucose 169 H Calcium 8.8 Total Bilirubin 0.5 AST 15 ALT 8 L Alkaline Phosphatase 120 H B-Natriuretic Peptide 211.4 H Total Protein 7.2 Albumin 3.4 06/27/18 15:53 RBC 3.91 MCV 87.5 MCHC 35.0 RDW 13.1 MPV 7.8 D Neutrophils % 76.9 D Lymphocytes % 15.1 D Monocytes % 7.2 Eosinophils % 0.4 Basophils % 0.4 <Dolores Singh - Last Filed: 06/27/18 18:38> Medical Decision Making - Medical Decision Making 06/27/18 17:54 Documentation prepared by Dolores Singh, acting as director of medical review for Pura Bean MD. <Dolores Singh - Last Filed: 06/27/18 18:38> *DC/Admit/Observation/Transfer - Discharge Dispostion Decision to Admit order: Yes <Pura Bean - Last Filed: 06/27/18 17:36> <SamanthaDolores - Last Filed: 06/27/18 18:38> Diagnosis at time of Disposition: Parkinsons disease, Peripheral edema, Cellulitis of lower leg, Head injury Leg pain Qualifiers: Laterality: bilateral Qualified Code(s): M79.604 - Pain in right leg CKD (chronic kidney disease) Qualifiers: Chronic kidney disease stage: unspecified stage Qualified Code(s): N18.9 - Chronic kidney disease, unspecified - Discharge Dispostion Condition at time of disposition: Stable - Referrals Referrals: Fermín Tristan MD [Primary Care Provider] - - Patient Instructions - Post Discharge Activity
[2018-06-27] MEDS ORDERED: PIPERACILLIN/TAZOB 3.375 GM 3.375 GM in DEXTROSE 5%-WATER - 50 ML IVPB ONE (17:32)
[2018-06-27] MEDS ORDERED: ACETAMINOPHEN 325 MG TABLET (FP) PO ONE (17:34)
[2018-06-27] MEDS ORDERED: CARBIDOPA/LEVODOPA 10/100 TABLET (FP) PO ONE (17:35)
[2018-06-27] MEDS ORDERED: ACETAMINOPHEN 325 MG TABLET (FP) ONE (17:50)
[2018-06-27] MEDS ORDERED: PIPERACILLIN/TAZOB 3.375 GM 3.375 GM/50 ML BAG IVPB ONE (17:51)
[2018-06-27] MEDS ORDERED: CARBIDOPA/LEVODOPA 25/100 TABLET (FP) PO SCH (22:00)
--- NOTE | 2018-06-27 22:30 | HP ---
CHIEF COMPLAINT: Increased BLE and pain PCP: Dr. Armijo Naval Designer: Dr. Arlene Craft Neurologist: Dr. Parnell HISTORY OF PRESENT ILLNESS: 73 year old female with a PMH significant for Parkinson's disease, CKD, HTN borderline DM, presented to the ED with increased pain and swelling in her right leg with a blister. She reports she has been having swollen legs for the past several months, but it has worsened over the past week. She reports it hurts to stand on her swollen legs. Denies fevers, dizziness, syncope, chest pain, SOB, n/v/d. Upon admission to the ED VSS, labs notable for slightly elevated BNP of 211. Doppler negative for DVT. She was given a dose of zosyn. 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 [employer], has 2 sons, lives with one of them Smoking: Never smoker Alcohol: Rarely Drugs: Denies Family History: Mother: COPD, age 88 Father: glioblastoma, aged 84 Allergies No Known Drug Allergies Allergy (Verified 06/20/18 10:20) Sesame seed Allergy (Mild, Uncoded 06/20/18 10:20) flushing, itch HOME MEDICATIONS: Home Medications Medication Instructions Recorded Carbidopa/Levodopa 25/100 [Sinemet 1 each PO HS 06/20/18 25/100 -] Carbidopa/Levodopa [Sinemet 10-100 1 each PO QID 06/20/18 mg Tablet] Furosemide 60 mg PO DAILY 06/20/18 Glimepiride 1 mg PO DAILY 06/20/18 Metoprolol Succinate [Toprol Xl] 50 mg PO BID 06/20/18 Multivitamin [One Daily] 1 each PO DAILY 06/20/18 Potassium Chloride [K-Dur -] 10 meq PO DAILY 06/20/18 Pramipexole Di-HCl [Pramipexole ER] 0.375 mg PO DAILY 06/20/18 Amantadine HCl [Gocovri] 137 mg PO HS 06/27/18 REVIEW OF SYSTEMS CONSTITUTIONAL: Absent: fever, chills, diaphoresis, generalized weakness, malaise, loss of appetite, weight change HEENT: Absent: rhinorrhea, nasal congestion, throat pain, throat swelling, difficulty swallowing, mouth swelling, ear pain, eye pain, visual changes CARDIOVASCULAR: (+) peripheral edema Absent: chest pain, syncope, palpitations, irregular heart rate, lightheadedness RESPIRATORY: Absent: cough, shortness of breath, dyspnea with exertion, orthopnea, wheezing, stridor, hemoptysis GASTROINTESTINAL: Absent: abdominal pain, abdominal distension, nausea, vomiting, diarrhea, constipation, melena, hematochezia GENITOURINARY: Absent: dysuria, frequency, urgency, hesitancy, hematuria, flank pain, genital pain MUSCULOSKELETAL: Absent: myalgia, arthralgia, joint swelling, back pain, neck pain SKIN: Absent: rash, itching, pallor HEMATOLOGIC/IMMUNOLOGIC: Absent: easy bleeding, easy bruising, lymphadenopathy, frequent infections ENDOCRINE: Absent: unexplained weight gain, unexplained weight loss, heat intolerance, cold intolerance NEUROLOGIC: Absent: headache, focal weakness or paresthesias, dizziness, unsteady gait, seizure, mental status changes, bladder or bowel incontinence PSYCHIATRIC: Absent: anxiety, depression, suicidal or homicidal ideation, hallucinations. PHYSICAL EXAMINATION Vital Signs - 24 hr 06/27/18 15:39 Temperature 98.4 F Pulse Rate 93 H Respiratory 16 Rate Blood Pressure 117/76 O2 Sat by Pulse 95 Oximetry (%) GENERAL: Awake, alert, and fully oriented, in no acute distress. HEAD: Normal with no signs of trauma. EYES: Pupils equal, round and reactive to light, extraocular movements intact, sclera anicteric, conjunctiva clear. No lid lag. EARS, NOSE, THROAT: Nares patent, oropharynx clear without exudates. Moist mucous membranes. NECK: Normal range of motion, supple without lymphadenopathy, JVD, or masses. LUNGS: Breath sounds equal, clear to auscultation bilaterally. No wheezes, and no crackles. No accessory muscle use. HEART: Regular rate and rhythm, normal S1 and S2 without murmur, rub or gallop. ABDOMEN: Soft, nontender, not distended, normoactive bowel sounds, no guarding, no rebound, no masses. No hepatomegaly or splenomegaly. MUSCULOSKELETAL: Normal range of motion at all joints. No bony deformities or tenderness. No CVA tenderness. UPPER EXTREMITIES: 2+ pulses, warm, well-perfused. No cyanosis. No clubbing. No peripheral edema. LOWER EXTREMITIES: +3 pitting edema to BLE and feet, erythema, blister to right anterior nazario 2+ pulses, warm, well-perfused. NEUROLOGICAL: Pronounced resting tremer of UE, normal speech, no facial droop PSYCHIATRIC: Cooperative. Good eye contact. Appropriate mood and affect. SKIN: Warm, dry, normal turgor, no rashes or lesions noted, normal capillary refill. Laboratory Results - last 24 hr 06/27/18 06/27/18 15:53 15:53 WBC 9.7 RBC 3.91 Hgb 12.0 Hct 34.2 D MCV 87.5 MCH 30.6 MCHC 35.0 RDW 13.1 Plt Count 265 MPV 7.8 D Absolute Neuts (auto) 7.5 Neutrophils % 76.9 D Lymphocytes % 15.1 D Monocytes % 7.2 Eosinophils % 0.4 Basophils % 0.4 Nucleated RBC % 0 Sodium 138 Potassium 3.5 Chloride 101 Carbon Dioxide 28 Anion Gap 9 BUN 25 H Creatinine 1.3 Creat Clearance w eGFR 40.38 Random Glucose 169 H Calcium 8.8 Total Bilirubin 0.5 AST 15 ALT 8 L Alkaline Phosphatase 120 H B-Natriuretic Peptide 211.4 H Total Protein 7.2 Albumin 3.4 ASSESSMENT/PLAN: 73 year old female with a PMH significant for Parkinson's disease, CKD, HTN borderline DM, presented to the ED with increased pain and swelling in her right leg with a blister. She was admitted for treatment with IV antibiotics for cellulitis. RLL Cellulitis - Doppler negative for DVT - Given Zosyn in the ED - Continue until seen by ID - ID consult ordered ?Heart failure - Elevated BNP of 211 - Increased BLE - EKG pending - Cardiac consult ordered Parkinson's disease - Continue home medications: - Sinemet 10 mg QID and 25 mg QHS - Amantadine 137 mg PO QHS - Followed by neurologist Dr. Parnell CKD - BUN/Cr 25/1.3 - Followed by stencil machine operator Dr. Arlene Craft - Consult ordered Diabetes - Monitor fingerstick glucose - SS with novolog - HOLD home Glimepiride HTN - Controlled - Continue home medications: - Metoprolol Succinate 50 mg PO BID - Lasix 60 mg PO daily - KCL 10 meq PO qday - Monitor BP Prophylaxis - DVT: Heparin SQ FEN - PO intake adequate - Replete as needed - Low sodium, diabetic diet Disp: Patient requires further inpatient care, PCP would like her to be d/moustapha to a subacute rehab. Visit type - Emergency Visit Emergency Visit: Yes ED Registration Date: 06/27/18 Care time: The patient presented to the Emergency Department on the above date and was hospitalized for further evaluation of their emergent condition. - New Patient This patient is new to me today: Yes Date on this admission: 06/27/18 - Critical Care Critical Care patient: No
[2018-06-27] MEDS ORDERED: CARBIDOPA/LEVODOPA 25/100 TABLET (FP) ONE (22:33)
[2018-06-27] MEDS ORDERED: HEPARIN NA (PORCINE) 5,000 UNITS/ML 1ML VIAL ONE (22:33)
[2018-06-27] MEDS: HEPARIN NA (PORCINE) 5,000 UNITS/ML 1ML VIAL SQ SCH (22:43)
[2018-06-28] MEDS ORDERED: DEXTROSE 5%-WATER - 50 ML IVPB ONE ×4 (00:38→17:38)
[2018-06-28] MEDS ORDERED: PIPERACILLIN/TAZOBACTAM 3.375 GM VIAL IVPB ONE ×4 (00:38→17:38)
[2018-06-28] MEDS: PIPERACILLIN/TAZOB 3.375 GM 3.375 GM in DEXTROSE 5%-WATER - 50 ML IVPB SCH ×4 (00:54→17:44)
[2018-06-28 01:39] VITALS: BMI 29.2
[2018-06-28] MEDS ORDERED: ACETAMINOPHEN 500 MG TABLET (FP) PO PRN (01:44)
[2018-06-28] MEDS: GLIMEPIRIDE 1 MG TABLET (FP) PO SCH (06:33)
[2018-06-28] MEDS: INSULIN SLIDING SCALE (NOVOLOG) 1 VIAL SQ SCH ×3 (06:34→17:08)
[2018-06-28 06:51] LABS: HEMOGLOBIN 11.4 GM/dL (10.7-15.3); MCH 31.3 pg (25.7-33.7); MCHC 35.7 g/dl (32.0-36.0); MEAN CELL VOLUME 87.7 fl (80-96); PLATELET COUNT 242 K/MM3 (134-434); RBC 3.65 M/mm3 (3.60-5.2); RDW 13.4 % (11.6-15.6); WHITE BLOOD COUNT 7.6 K/mm3 (4.0-10.0)
[2018-06-28 07:32] LABS: ANION GAP 6 MMOL/L (8-16); BLOOD UREA NITROGEN 24 mg/dL (7-18); CALCIUM 8.6 mg/dL (8.5-10.1); CHLORIDE 104 mmol/L (98-107); CO2 31 mmol/L (21-32); CREATININE 1.2 mg/dL (0.55-1.3); GLUCOSE,RANDOM 131 mg/dL (74-106); MAGNESIUM 2.3 mg/dL (1.8-2.4); POTASSIUM 3.3 mmol/L (3.5-5.1); SODIUM 140 mmol/L (136-145)
[2018-06-28] MEDS ORDERED: PT OWN MED DRAWER 7, Y5N ONE (08:46)
[2018-06-28] MEDS: CARBIDOPA/LEVODOPA 10/100 TABLET (FP) PO SCH ×4 (08:55→20:00)
--- NOTE | 2018-06-28 09:54 | CONSULT ---
Consult - text type - Consultation Consultation Note: Renal Consult for CKD and LE edema This is a 73 year old woman with hx of CKD, Parkinsons, DM, Hypertension who presented with LE swelling and blister. Pt report that she has been having issues with LE swelling since being on pramipexole. On Lasix 60mg daily at home. Denies any SOB/SAHA, CP. No fever or chills. Has redness and tenderness in R>L LE. Making urine w/o any issues. PMhx: as above Allergies: NKDA Family Hx: NC Social Hx: No T/A/D ROS: as per HPI Home Medications Medication Instructions Recorded Carbidopa/Levodopa 25/100 [Sinemet 1 each PO HS 06/20/18 25/100 -] Carbidopa/Levodopa [Sinemet 10-100 1 each PO QID 06/20/18 mg Tablet] Furosemide 60 mg PO DAILY 06/20/18 Glimepiride 1 mg PO DAILY 06/20/18 Metoprolol Succinate [Toprol Xl] 50 mg PO BID 06/20/18 Multivitamin [One Daily] 1 each PO DAILY 06/20/18 Potassium Chloride [K-Dur -] 10 meq PO DAILY 06/20/18 Pramipexole Di-HCl [Pramipexole ER] 0.375 mg PO DAILY 06/20/18 Amantadine HCl [Gocovri] 137 mg PO HS 06/27/18 Vital Signs Temperature 97.6 F 06/28/18 06:00 Pulse Rate 80 06/28/18 06:00 Respiratory Rate 18 06/28/18 06:00 Blood Pressure 144/73 06/28/18 06:00 O2 Sat by Pulse Oximetry (%) 97 06/28/18 01:00 Intake & Output 06/25/18 06/26/18 06/27/18 06/28/18 23:59 23:59 23:59 23:59 Intake Total 100 Balance 100 Weight 81.193 kg 82.282 kg NAD awake and alert neck supple RRR CTA soft NT/ND R>L erythema and mild edema CBC, BMP 06/28/18 06:20 06/28/18 06:20 Laboratory Tests 06/28/18 06:20 Calcium 8.6 Magnesium 2.3 Current Medications Acetaminophen (Tylenol -) 500 mg PO Q6H PRN PRN Reason: PAIN LEVEL 1-5 Allopurinol (Zyloprim -) 100 mg PO DAILY [facility] Carbidopa/Levodopa (Sinemet 10/100 -) 1 each PO 0800,1300,1500,1900 [facility] Last Admin: 06/28/18 08:55 Dose: 1 each Carbidopa/Levodopa (Sinemet 25/100 -) 1 each PO HS [facility] Last Admin: 06/27/18 22:43 Dose: 1 each Furosemide (Lasix -) 60 mg PO DAILY [facility] Glimepiride (Amaryl -) 1 mg PO DAILY@0700 [facility] Last Admin: 06/28/18 06:33 Dose: 1 mg Heparin Sodium (Porcine) (Heparin -) 5,000 unit SQ BID [facility] Last Admin: 06/27/18 22:43 Dose: 5,000 unit Piperacillin Sod/Tazobactam (Sod 3.375 gm/ Dextrose) 50 mls @ 100 mls/hr IVPB Q8H-IV [facility]; Protocol Insulin Aspart (Novolog Vial Sliding Scale -) 1 vial SQ TIDAC [facility]; Protocol Last Admin: 06/28/18 06:34 Dose: Not Given Metoprolol Succinate (Toprol Xl -) 50 mg PO BID [facility] Last Admin: 06/27/18 22:43 Dose: 50 mg Multivitamins/Minerals/Vitamin C (Tab-A-Vit -) 1 tab PO DAILY [facility] Non-Formulary Medication (Amantadine Hcl [Gocovri]) 137 mg PO HS [facility] Potassium Chloride (K-Dur -) 10 meq PO DAILY [facility] Pramipexole Dihydrochloride (Mirapex -) 0.375 mg PO DAILY [facility] 73 year old woman with hx of CKD, Parkinsons, DM, Hypertension who presented with LE swelling and blister. #CKD Stage 3 #LE swelling and erythema r/o cellulitis #Parkinson's Disease #Mild Hypokalemia Renal function stable at this time Would avoid nephrotoxins such as NSAIDs if possible LE swelling may be medication side effect of pramipexole, ? if it can be replaced pt follows with Dr. Parnell as an outpatient for neurology Will give Lasix 40mg IVP daily for now trend renal function adn electrolytes Give KCL 40meq today Thank you Von Campos DO
[2018-06-28] MEDS ORDERED: PRAMIPEXOLE DIHYDROCHLORIDE 0.125 MG TABLET PO SCH (10:00)
[2018-06-28] MEDS ORDERED: FUROSEMIDE 40 MG TABLET (FP) PO SCH (10:00)
[2018-06-28] MEDS: POTASSIUM CHLORIDE TABS 10 MEQ TABLET.ER (FP) PO SCH (10:34)
[2018-06-28] MEDS: HEPARIN NA (PORCINE) 5,000 UNITS/ML 1ML VIAL SQ SCH ×2 (10:34→22:17)
[2018-06-28] MEDS: MULTIVITAMINS (DAILY MVI) TABLET (FP) PO SCH (10:36)
[2018-06-28] MEDS: ALLOPURINOL 100 MG TABLET (FP) PO SCH (10:38)
[2018-06-28] MEDS: FUROSEMIDE 40 MG/4 ML INJECTABLE VIAL IVPUSH SCH (10:43)
[2018-06-28] MEDS ORDERED: POTASSIUM CHLORIDE TABS 10 MEQ TABLET.ER (FP) PO ONE (10:45)
--- NOTE | 2018-06-28 16:26 | EKG ---
Test Reason : Blood Pressure : / mmHG Vent. Rate : 075 BPM Atrial Rate : 075 BPM P-R Int : 192 ms QRS Dur : 086 ms QT Int : 374 ms P-R-T Axes : 059 -13 012 degrees QTc Int : 417 ms NORMAL SINUS RHYTHM VOLTAGE CRITERIA FOR LEFT VENTRICULAR HYPERTROPHY ABNORMAL ECG Confirmed by MD JONATAN, TESSA ([id number]) on 06/28/2018 4:25:54 PM Referred By: Confirmed By:TESSA CHEUNG MD
--- NOTE | 2018-06-28 18:13 | CON.ID ---
Consult Consult Specialty:: infectious diseases Referred by:: Reason for Consultation:: sepsis,cellulitis of the leg - History of Present Illness Chief Complaint: fever,swelling of the rt leg History of Present Illness: 73 year old female with a PMH significant for Parkinson's disease, CKD, HTN borderline DM, presented to the ED with increased pain and swelling in her right leg with a blister. She reports she has been having swollen legs for the past several months, but it has worsened over the past week. She reports it hurts to stand on her swollen legs. Denies fevers, dizziness, syncope, chest pain, SOB, n/v/d. patient also mentions that she has been shaking a lot and according to the family interment confusion patient currently shaking probably because of parkinsonian - History Source History Provided By: Family Member, Medical Record Limitations to Obtaining History: Clinical Condition - Past Medical History ...: No - Alcohol/Substance Use Hx Alcohol Use: No - Smoking History Smoking history: Never smoked Have you smoked in the past 12 months: No Home Medications - Allergies Allergies/Adverse Reactions: Allergies Allergy/AdvReac Type Severity Reaction Status Date / Time No Known Drug Allergies Allergy Verified 06/20/18 10:20 sesame seed Allergy Mild flushing, Uncoded 06/20/18 10:20 itch - Home Medications Home Medications: Ambulatory Orders Carbidopa/Levodopa 25/100 [Sinemet 25/100 -] 1 each PO HS 06/20/18 Carbidopa/Levodopa [Sinemet 10-100 mg Tablet] 1 each PO QID 06/20/18 Metoprolol Succinate [Toprol Xl] 50 mg PO BID 06/20/18 Multivitamin [One Daily] 1 each PO DAILY 06/20/18 Potassium Chloride [K-Dur -] 10 meq PO DAILY 06/20/18 Pramipexole Di-HCl [Pramipexole ER] 0.375 mg PO DAILY 06/20/18 RX: Furosemide 60 mg PO DAILY 06/20/18 RX: Glimepiride 1 mg PO DAILY 06/20/18 Amantadine HCl [Gocovri] 137 mg PO HS 06/27/18 Review of Systems - Review of Systems Constitutional: reports: Fever Eyes: reports: No Symptoms HENT: reports: No Symptoms Neck: reports: No Symptoms Cardiovascular: reports: No Symptoms Respiratory: reports: No Symptoms Gastrointestinal: reports: No Symptoms Musculoskeletal: reports: No Symptoms Integumentary: reports: Change in Color, Erythema Neurological: reports: Tremors, Other Endocrine: reports: No Symptoms Hematology/Lymphatic: reports: No Symptoms Psychiatric: reports: No Symptoms Physical Exam Vital Signs: Vital Signs Temperature 98.3 F 06/28/18 14:26 Pulse Rate 85 06/28/18 14:26 Respiratory Rate 20 06/28/18 14:26 Blood Pressure 150/86 06/28/18 14:26 O2 Sat by Pulse Oximetry (%) 96 06/28/18 09:00 Constitutional: Yes: Calm, Mild Distress Eyes: Yes: Conjunctiva Clear Cardiovascular: Yes: Regular Rate and Rhythm Respiratory: Yes: Regular, CTA Bilaterally Gastrointestinal: Yes: Normal Bowel Sounds, Soft Musculoskeletal: Yes: WNL Extremities: Yes: Erythema (of the leg), Other Neurological: Yes: Alert, Other Labs: CBC, BMP 06/28/18 06:20 06/28/18 06:20 Imaging - Results Chest X-ray: Report Reviewed, Image Reviewed Cat Scan: Report Reviewed, Image Reviewed Assessment/Plan Problem List - Problems (1) CKD (chronic kidney disease) Code(s): N18.9 - CHRONIC KIDNEY DISEASE, UNSPECIFIED Qualifiers: Chronic kidney disease stage: unspecified stage Qualified Code(s): N18.9 - Chronic kidney disease, unspecified (2) Cellulitis of lower leg Code(s): L03.119 - CELLULITIS OF UNSPECIFIED PART OF LIMB (3) Leg pain Code(s): M79.606 - PAIN IN LEG, UNSPECIFIED Qualifiers: Laterality: bilateral Qualified Code(s): M79.604 - Pain in right leg; M79.605 - Pain in left leg (4) Parkinsons disease Code(s): G20 - PARKINSON'S DISEASE (5) Peripheral edema Code(s): R60.9 - EDEMA, UNSPECIFIED (6) Gout Code(s): M10.9 - GOUT, UNSPECIFIED Qualifiers: Gout site: knee Gout etiology: unspecified cause Laterality: unspecified laterality (7) Knee pain, bilateral Code(s): M25.561 - PAIN IN RIGHT KNEE; M25.562 - PAIN IN LEFT KNEE Qualifiers: Chronicity: acute Qualified Code(s): M25.561 - Pain in right knee; M25.562 - Pain in left knee (8) Rotator cuff injury Code(s): S46.009A - UNSP INJ MUSC/TEND THE ROTATOR CUFF OF UNSP SHOULDER, INIT Qualifiers: Encounter type: initial encounter Laterality: right Qualified Code(s): S46.001A - Unspecified injury of muscle(s) and tendon(s) of the rotator cuff of right shoulder, initial encounter r/o uti plan will start patient on abx await for all results elevation of the legs neurology rest as per the team
--- NOTE | 2018-06-28 18:33 | PN ---
Progress Note, Physician Chief Complaint: Unable to walk , B/L Leg swelling History of Present Illness: 73 year old female with a PMH significant for Parkinson's disease, CKD, HTN borderline DM, presented to the ED with increased pain and swelling in her right leg with a blister. She reports she has been having swollen legs for the past several months, but it has worsened over the past week. She reports it hurts to stand on her swollen legs. Denies fevers, dizziness, syncope, chest pain, SOB, n/v/d. - Current Medication List Current Medications: Active Medications Acetaminophen (Tylenol -) 500 mg PO Q6H PRN PRN Reason: PAIN LEVEL 1-5 Allopurinol (Zyloprim -) 100 mg PO DAILY [facility] Last Admin: 06/28/18 10:38 Dose: 100 mg Carbidopa/Levodopa (Sinemet 10/100 -) 1 each PO 0800,1300,1500,1900 [facility] Last Admin: 06/28/18 16:02 Dose: 1 each Carbidopa/Levodopa (Sinemet 25/100 -) 1 each PO HS [facility] Last Admin: 06/27/18 22:43 Dose: 1 each Furosemide (Lasix Injection -) 40 mg IVPUSH DAILY [facility] Last Admin: 06/28/18 10:43 Dose: 40 mg Glimepiride (Amaryl -) 1 mg PO DAILY@0700 [facility] Last Admin: 06/28/18 06:33 Dose: 1 mg Heparin Sodium (Porcine) (Heparin -) 5,000 unit SQ BID [facility] Last Admin: 06/28/18 10:34 Dose: 5,000 unit Piperacillin Sod/Tazobactam (Sod 3.375 gm/ Dextrose) 50 mls @ 100 mls/hr IVPB Q8H-IV [facility]; Protocol Last Admin: 06/28/18 17:44 Dose: 100 mls/hr Insulin Aspart (Novolog Vial Sliding Scale -) 1 vial SQ TIDAC [facility]; Protocol Last Admin: 06/28/18 17:08 Dose: Not Given Metoprolol Succinate (Toprol Xl -) 50 mg PO BID [facility] Last Admin: 06/28/18 10:36 Dose: 50 mg Multivitamins/Minerals/Vitamin C (Tab-A-Vit -) 1 tab PO DAILY [facility] Last Admin: 06/28/18 10:36 Dose: 1 tab Non-Formulary Medication (Amantadine Hcl [Gocovri]) 137 mg PO [facility] Potassium Chloride (K-Dur -) 10 meq PO DAILY [facility] Last Admin: 06/28/18 10:34 Dose: 10 meq Pramipexole Dihydrochloride (Mirapex -) 0.375 mg PO DAILY [facility] Last Admin: 06/28/18 10:35 Dose: 0.375 mg - Objective Vital Signs: Vital Signs Temperature 98.3 F 06/28/18 14:26 Pulse Rate 85 06/28/18 14:26 Respiratory Rate 20 06/28/18 14:26 Blood Pressure 150/86 06/28/18 14:26 O2 Sat by Pulse Oximetry (%) 96 06/28/18 09:00 Constitutional: Yes: Well Nourished, Anxious Eyes: Yes: Conjunctiva Clear, EOM Intact HENT: Yes: Atraumatic, Normocephalic Neck: Yes: Supple, Trachea Midline Cardiovascular: Yes: Regular Rate and Rhythm Respiratory: Yes: Regular, CTA Bilaterally Gastrointestinal: Yes: Normal Bowel Sounds, Soft Musculoskeletal: Yes: Joint Stiffness Edema: No Neurological: Yes: Alert, Oriented, Cran Nerves II-XII Intact Labs: CBC, BMP 06/28/18 06:20 06/28/18 06:20 Problem List - Problems (1) CKD (chronic kidney disease) Code(s): N18.9 - CHRONIC KIDNEY DISEASE, UNSPECIFIED Qualifiers: Chronic kidney disease stage: unspecified stage Qualified Code(s): N18.9 - Chronic kidney disease, unspecified (2) Cellulitis of lower leg Code(s): L03.119 - CELLULITIS OF UNSPECIFIED PART OF LIMB (3) Leg pain Code(s): M79.606 - PAIN IN LEG, UNSPECIFIED Qualifiers: Laterality: bilateral Qualified Code(s): M79.604 - Pain in right leg; M79.605 - Pain in left leg (4) Parkinsons disease Code(s): G20 - PARKINSON'S DISEASE (5) Peripheral edema Code(s): R60.9 - EDEMA, UNSPECIFIED (6) Gout Code(s): M10.9 - GOUT, UNSPECIFIED Qualifiers: Gout site: knee Gout etiology: unspecified cause Laterality: unspecified laterality (7) Knee pain, bilateral Code(s): M25.561 - PAIN IN RIGHT KNEE; M25.562 - PAIN IN LEFT KNEE Qualifiers: Chronicity: acute Qualified Code(s): M25.561 - Pain in right knee; M25.562 - Pain in left knee (8) Rotator cuff injury Code(s): S46.009A - UNSP INJ MUSC/TEND THE ROTATOR CUFF OF UNSP SHOULDER, INIT Qualifiers: Encounter type: initial encounter Laterality: right Qualified Code(s): S46.001A - Unspecified injury of muscle(s) and tendon(s) of the rotator cuff of right shoulder, initial encounter Assessment/Plan 1) CKD (chronic kidney disease) Code(s): N18.9 - CHRONIC KIDNEY DISEASE, UNSPECIFIED Qualifiers: Chronic kidney disease stage: unspecified stage Qualified Code(s): N18.9 - Chronic kidney disease, unspecified (2) Cellulitis of lower leg Code(s): L03.119 - CELLULITIS OF UNSPECIFIED PART OF LIMB (3) Leg pain Code(s): M79.606 - PAIN IN LEG, UNSPECIFIED Qualifiers: Laterality: bilateral Qualified Code(s): M79.604 - Pain in right leg; M79.605 - Pain in left leg (4) Parkinsons disease Code(s): G20 - PARKINSON'S DISEASE (5) Peripheral edema Code(s): R60.9 - EDEMA, UNSPECIFIED (6) Gout Code(s): M10.9 - GOUT, UNSPECIFIED Qualifiers: Gout site: knee Gout etiology: unspecified cause Laterality: unspecified laterality (7) Knee pain, bilateral Code(s): M25.561 - PAIN IN RIGHT KNEE; M25.562 - PAIN IN LEFT KNEE Qualifiers: Chronicity: acute Qualified Code(s): M25.561 - Pain in right knee (8) Rotator cuff injury Code(s): S46.009A - UNSP INJ MUSC/TEND THE ROTATOR CUFF OF UNSP SHOULDER, INIT Qualifiers: Encounter type: initial encounter Laterality: right Qualified Code(s): S46.001A - Unspecified injury of muscle(s) and tendon(s) of the rotator cuff of right shoulder, initial encounter
--- NOTE | 2018-06-28 21:18 | CONSULT ---
Consult - text type - Consultation Consultation Note: NEUROLOGY CONSULTATION is greatly appreciated: This 73 yo RH woman lives with her in a private home with stairs. She carries a Diagnosis of Parkinson's disease x 10 years. On carbidopa/levadopa 10/100 TID and HS; Pramipexole 0.375 hs and amantadine as Gocovri 137 mg q AM. Other meds include: Furosemide 60 mg PO DAILY for recent leg swelling; Glimepiride; Metoprolol; and potassium. Now admitted for leg swelling and confusion. C/O 2-3 months of throbbing leg pains at night interupting sleep. ANTHONY: No evidence of external head trauma. No bruits. Cor: Reg -SLR. Neg Rufus's. NEURO: Ox home but recalls [facility] at 3, 10 mins. 2017. Trump. Recalls 2 of 3. +Glabella, snout. Hypophonic speech Masked facies. Rhythmic jaw tremor. Prominent rhythmic rest tremor. ++Cogwheel rigidity. Decreased KATY's. Normal strength. Decreased AJ's. Toes downgoing. No FTN Dystaxia Normal sensation in legs Festinating, retropulsive gait. IMP: Parkinson's disease OMS/confusion-r/o Toxic-metabolic encephalopathy PD-related Restless Limbs Syndrome (RLS). SUGGEST:Check B12, TSH, ESR, Fe++, TIBC R/O Occult infection especially UTI. Change PD meds to: Sinemet CR 50/200 @ 7 AM, 12 Noon, and 5 PM D/C Amantadine. Pramipexole 0.25 mg HS Mobilize OOBed to chair Begin Bedside/chairside PT Quetiapine 12.5 mg PO HS Thank you very much, Garry Islas MD
[2018-06-28] MEDS ORDERED: AMANTADINE HCL PO SCH (22:00)
[2018-06-28] MEDS: QUEtiapine FUMARATE 25 MG TABLET (FP) PO SCH (22:17)
[2018-06-28] MEDS: PRAMIPEXOLE DIHYDROCHLORIDE 0.25 MG TABLET PO SCH (22:18)
[2018-06-28] MEDS ORDERED: POTASSIUM CHLORIDE ORAL LIQUID 20 MEQ/15 ML PO ONE ×2 (22:52→23:45)
[2018-06-29] MEDS ORDERED: DEXTROSE 5%-WATER - 50 ML IVPB ONE ×3 (02:23→16:41)
[2018-06-29] MEDS ORDERED: PIPERACILLIN/TAZOBACTAM 3.375 GM VIAL IVPB ONE ×2 (02:23→10:26)
[2018-06-29] MEDS: PIPERACILLIN/TAZOB 3.375 GM 3.375 GM in DEXTROSE 5%-WATER - 50 ML IVPB SCH ×2 (02:50→10:32)
[2018-06-29] MEDS: INSULIN SLIDING SCALE (NOVOLOG) 1 VIAL SQ SCH ×3 (06:42→17:00)
[2018-06-29] MEDS: GLIMEPIRIDE 1 MG TABLET (FP) PO SCH (06:42)
[2018-06-29 08:25] LABS: MAGNESIUM 2.3 mg/dL (1.8-2.4)
[2018-06-29] MEDS: ALLOPURINOL 100 MG TABLET (FP) PO SCH (10:32)
[2018-06-29] MEDS: POTASSIUM CHLORIDE TABS 10 MEQ TABLET.ER (FP) PO SCH (10:33)
[2018-06-29] MEDS: FUROSEMIDE 40 MG/4 ML INJECTABLE VIAL IVPUSH SCH (10:33)
[2018-06-29] MEDS: HEPARIN NA (PORCINE) 5,000 UNITS/ML 1ML VIAL SQ SCH ×2 (10:33→23:00)
[2018-06-29] MEDS: MULTIVITAMINS (DAILY MVI) TABLET (FP) PO SCH (10:34)
[2018-06-29 12:04] LABS: ANION GAP 8 MMOL/L (8-16); BLOOD UREA NITROGEN 23 mg/dL (7-18); CALCIUM 9.1 mg/dL (8.5-10.1); CHLORIDE 103 mmol/L (98-107); CO2 29 mmol/L (21-32); CREATININE 1.5 mg/dL (0.55-1.3); GLUCOSE,RANDOM 175 mg/dL (74-106); POTASSIUM 3.6 mmol/L (3.5-5.1); SODIUM 140 mmol/L (136-145)
[2018-06-29] MEDS ORDERED: POTASSIUM CHLORIDE TABS 10 MEQ TABLET.ER (FP) PO ONE (12:57)
--- NOTE | 2018-06-29 12:58 | PN ---
Progress Note (short form) - Note Progress Note: Renal follow up for CKD Pt seen and examined at the bedside awake and alert neck supple no JVD Vital Signs Temperature 99.2 F 06/29/18 10:00 Pulse Rate 100 H 06/29/18 10:00 Respiratory Rate 22 H 06/29/18 10:00 Blood Pressure 119/86 06/29/18 10:00 O2 Sat by Pulse Oximetry (%) 96 06/28/18 21:00 Intake & Output 06/26/18 06/27/18 06/28/18 06/29/18 23:59 23:59 23:59 23:59 Intake Total 415 250 Balance 415 250 Weight 81.193 kg 82.282 kg NAD awake and alert neck supple RRR improving LE edema CBC, BMP 06/28/18 06:20 06/29/18 06:45 Current Medications Acetaminophen (Tylenol -) 500 mg PO Q6H PRN PRN Reason: PAIN LEVEL 1-5 Allopurinol (Zyloprim -) 100 mg PO DAILY [facility] Last Admin: 06/29/18 10:32 Dose: 100 mg Furosemide (Lasix Injection -) 40 mg IVPUSH DAILY [facility] Last Admin: 06/29/18 10:33 Dose: 40 mg Glimepiride (Amaryl -) 1 mg PO DAILY@0700 [facility] Last Admin: 06/29/18 06:42 Dose: 1 mg Heparin Sodium (Porcine) (Heparin -) 5,000 unit SQ BID [facility] Last Admin: 06/29/18 10:33 Dose: 5,000 unit Piperacillin Sod/Tazobactam (Sod 3.375 gm/ Dextrose) 50 mls @ 100 mls/hr IVPB Q8H-IV [facility]; Protocol Last Admin: 06/29/18 10:32 Dose: 100 mls/hr Insulin Aspart (Novolog Vial Sliding Scale -) 1 vial SQ TIDAC [facility]; Protocol Last Admin: 06/29/18 12:16 Dose: 2 units Metoprolol Succinate (Toprol Xl -) 50 mg PO BID [facility] Last Admin: 06/29/18 10:32 Dose: 50 mg Multivitamins/Minerals/Vitamin C (Tab-A-Vit -) 1 tab PO DAILY [facility] Last Admin: 06/29/18 10:34 Dose: 1 tab Potassium Chloride (K-Dur -) 10 meq PO DAILY [facility] Last Admin: 06/29/18 10:33 Dose: 10 meq Pramipexole Dihydrochloride (Mirapex -) 0.25 mg PO HS [facility] Last Admin: 06/28/18 22:18 Dose: 0.25 mg Quetiapine Fumarate (Seroquel -) 12.5 mg PO HS [facility] Last Admin: 06/28/18 22:17 Dose: 12.5 mg 73 year old woman with hx of CKD, Parkinsons, DM, Hypertension who presented with LE swelling and blister. #CKD Stage 3 (baseline Cr 1.5) #LE swelling and erythema r/o cellulitis #Parkinson's Disease #Mild Hypokalemia Renal function at baseline continue IV lasix for now for management of LE edema neurology consult appreciated trend renal function and electrolytes daily Thank you Von Campos DO
--- NOTE | 2018-06-29 14:54 | PN ---
Progress Note, Physician History of Present Illness: patient confused today creatinine increasing son in room shaking intermittent - Current Medication List Current Medications: Active Medications Acetaminophen (Tylenol -) 500 mg PO Q6H PRN PRN Reason: PAIN LEVEL 1-5 Allopurinol (Zyloprim -) 100 mg PO DAILY [facility] Last Admin: 06/29/18 10:32 Dose: 100 mg Furosemide (Lasix Injection -) 40 mg IVPUSH DAILY [facility] Last Admin: 06/29/18 10:33 Dose: 40 mg Glimepiride (Amaryl -) 1 mg PO DAILY@0700 [facility] Last Admin: 06/29/18 06:42 Dose: 1 mg Heparin Sodium (Porcine) (Heparin -) 5,000 unit SQ BID [facility] Last Admin: 06/29/18 10:33 Dose: 5,000 unit Piperacillin Sod/Tazobactam (Sod 3.375 gm/ Dextrose) 50 mls @ 100 mls/hr IVPB Q8H-IV [facility]; Protocol Last Admin: 06/29/18 10:32 Dose: 100 mls/hr Insulin Aspart (Novolog Vial Sliding Scale -) 1 vial SQ TIDAC [facility]; Protocol Last Admin: 06/29/18 12:16 Dose: 2 units Metoprolol Succinate (Toprol Xl -) 50 mg PO BID [facility] Last Admin: 06/29/18 10:32 Dose: 50 mg Multivitamins/Minerals/Vitamin C (Tab-A-Vit -) 1 tab PO DAILY [facility] Last Admin: 06/29/18 10:34 Dose: 1 tab Potassium Chloride (K-Dur -) 20 meq PO DAILY [facility] Pramipexole Dihydrochloride (Mirapex -) 0.25 mg PO HS [facility] Last Admin: 06/28/18 22:18 Dose: 0.25 mg Quetiapine Fumarate (Seroquel -) 12.5 mg PO HS [facility] Last Admin: 06/28/18 22:17 Dose: 12.5 mg - Objective Vital Signs: Vital Signs Temperature 99.2 F 06/29/18 10:00 Pulse Rate 100 H 06/29/18 10:00 Respiratory Rate 22 H 06/29/18 10:00 Blood Pressure 119/86 06/29/18 10:00 O2 Sat by Pulse Oximetry (%) 96 06/29/18 09:00 Constitutional: Yes: No Distress Cardiovascular: Yes: Regular Rate and Rhythm Respiratory: Yes: Regular, CTA Bilaterally Gastrointestinal: Yes: Normal Bowel Sounds, Soft Musculoskeletal: Yes: WNL Extremities: Yes: Other Neurological: Yes: Alert, Confusion Psychiatric: Yes: Other Labs: CBC, BMP 06/28/18 06:20 06/29/18 06:45 - ....Imaging Cat Scan: Report Reviewed, Image Reviewed Assessment/Plan Problem List - Problems (1) CKD (chronic kidney disease) Code(s): N18.9 - CHRONIC KIDNEY DISEASE, UNSPECIFIED Qualifiers: Chronic kidney disease stage: unspecified stage Qualified Code(s): N18.9 - Chronic kidney disease, unspecified (2) Cellulitis of lower leg Code(s): L03.119 - CELLULITIS OF UNSPECIFIED PART OF LIMB (3) Leg pain Code(s): M79.606 - PAIN IN LEG, UNSPECIFIED Qualifiers: Laterality: bilateral Qualified Code(s): M79.604 - Pain in right leg; M79.605 - Pain in left leg (4) Parkinsons disease Code(s): G20 - PARKINSON'S DISEASE (5) Peripheral edema Code(s): R60.9 - EDEMA, UNSPECIFIED (6) Gout Code(s): M10.9 - GOUT, UNSPECIFIED Qualifiers: Gout site: knee Gout etiology: unspecified cause Laterality: unspecified laterality (7) Knee pain, bilateral Code(s): M25.561 - PAIN IN RIGHT KNEE; M25.562 - PAIN IN LEFT KNEE Qualifiers: Chronicity: acute Qualified Code(s): M25.561 - Pain in right knee; M25.562 - Pain in left knee (8) Rotator cuff injury Code(s): S46.009A - UNSP INJ MUSC/TEND THE ROTATOR CUFF OF UNSP SHOULDER, INIT Qualifiers: Encounter type: initial encounter Laterality: right Qualified Code(s): S46.001A - Unspecified injury of muscle(s) and tendon(s) of the rotator cuff of right shoulder, initial encounter r/o uti plan continue abx will send urine for c and s nutrition--i think patient is getting dehydrated watch for fevers and creatinine cbc tomorrow
--- NOTE | 2018-06-29 15:00 | CONSULT ---
Consult Consult Specialty:: PM&R- Dr Golden for Dr Guido - History of Present Illness Chief Complaint: R leg heaviness History of Present Illness: This is a 73 year old woman with a medical history of Parkinson's disease with RLS, HTN, CKD, borderline DM, who presented to the [facility] ED 06/27/18 with RLE pain and swelling. Doppler US was negative for DVT. She was diagnosed with cellulitis for which ID was consulted. She was also seen by Renal for CKD. Neurology was consulted for AMS, who felt it was likely toxic metabolic encephalopathy. BNP was elevated for which Cardiology was consulted. She was seen by PT, and on 06/29/18 she was Maximum Assist in Bed Mobility, and ambulated/ shuffled 4 feet Moderate Assist x2 people with Rolling Walker. Physiatry is being consulted for further recommendations. - Past Medical History ...: No - Alcohol/Substance Use Hx Alcohol Use: No - Smoking History Smoking history: Never smoked Have you smoked in the past 12 months: No - Social History Usual Living Arrangement: Other (with and 2 sons in a house with 2 steps to enter and chair lift inside) Home Medications - Allergies Allergies/Adverse Reactions: Allergies Allergy/AdvReac Type Severity Reaction Status Date / Time No Known Drug Allergies Allergy Verified 06/20/18 10:20 sesame seed Allergy Mild flushing, Uncoded 06/20/18 10:20 itch - Home Medications Home Medications: Ambulatory Orders Carbidopa/Levodopa 25/100 [Sinemet 25/100 -] 1 each PO HS 06/20/18 Carbidopa/Levodopa [Sinemet 10-100 mg Tablet] 1 each PO QID 06/20/18 Furosemide 60 mg PO DAILY 06/20/18 Glimepiride 1 mg PO DAILY 06/20/18 Metoprolol Succinate [Toprol Xl] 50 mg PO BID 06/20/18 Multivitamin [One Daily] 1 each PO DAILY 06/20/18 Potassium Chloride [K-Dur -] 10 meq PO DAILY 06/20/18 Pramipexole Di-HCl [Pramipexole ER] 0.375 mg PO DAILY 06/20/18 Amantadine HCl [Gocovri] 137 mg PO HS 06/27/18 Review of Systems Findings/Remarks: Denies fevers, chills, changes in vision/ hearing/ mood, CP, SOB, abdominal pain , nausea, vomiting, diarrhea, dysuria, numbness/ paresthesias, muscle/ joint pain. Notes RLE pain much better but still feels heavy. Also notes chronic constipation which is at baseline. Physical Exam Vital Signs: Vital Signs Temperature 99.2 F 06/29/18 10:00 Pulse Rate 100 H 06/29/18 10:00 Respiratory Rate 22 H 06/29/18 10:00 Blood Pressure 119/86 06/29/18 10:00 O2 Sat by Pulse Oximetry (%) 96 06/29/18 09:00 Extremities: Yes: Other (General: calm elderly F sitting in bed NAD, awake and alert not oriented to time or place N/M: R shoulder flexion to 45 degrees, L shoulder flexion to 80 dgerees, 4-/5 RUE, 4/5 LUE, 1/5 R HF, 3/5 L HF ? B KE, then 4/5 B DF; Pinprick Intact BUE/ BLE Extremities: 1+ R/ trace LLE pitting edema, no B calf tenderness) Labs: CBC, BMP 06/28/18 06:20 06/29/18 06:45 Imaging - Results Cat Scan: Report Reviewed (CT head 06/27/18 shows no significant interval changes or acute pathology) Ultrasound: Report Reviewed (doppler US negative for DVT) Assessment/Plan Impression: 1) Deficits mobility/ ADLs 2) Deconditioning 3) Gait abnormality 4) RLE cellulitis, improving 5) AMS due to toxic metabolic encephalopathy 6) hx Parkinson's disease with RLS 7) hx HTN with elevated BNP 8) CKD 9) Borderline DM 10) Up to date flu shot/ pneumovax 11) Overweight Recommendations: 1) PT for stretching strengthening ROM and functional mobility 2) Falls, safety precautions 3) Cardiac, diabetic precautions 4) DVT ppx: on hep sc 5) Bowel regimen prn- consider Senna 2 tabs qHS and Colace up to 100mg TID if constipation persists 6) Skin protection: float heels, frequent turning 7) Nutrition consult for overweight 8) Continue plan per primary team 9) Discharge planning: d/w pt, son and that she would benefit from inpatient rehabilitation once medically stable Thank you for this referral.
[2018-06-29] MEDS ORDERED: cefTRIAXone SODIUM 1 GM VIAL ONE (16:41)
[2018-06-29] MEDS: CEFTRIAXONE 1 GM in DEXTROSE 5%-WATER - 50 ML IVPB SCH (16:53)
--- NOTE | 2018-06-29 17:41 | CON.CARD ---
Consult Consult Specialty:: Cadriology Referred by:: Hospitalist Medicine Reason for Consultation:: Bilateral LE edema, elevated BNP - History of Present Illness Chief Complaint: Bilateral LE edema History of Present Illness: 73 year old female with a PMH significant for Parkinson's disease, CKD, HTN borderline DM, presented to the ED with increased pain and swelling in her right leg with a blister. She reports she has been having swollen legs for the past several months, but it has worsened over the past week. She reports it hurts to stand on her swollen legs. Denies fevers, dizziness, syncope, chest pain, SOB, n/v/d, palpitations. Ruled out for DVT, LE edema resolved with diuresis, placed on empiric abx for cellulitis. - History Source History Provided By: Patient Limitations to Obtaining History: No Limitations - Past Medical History [employer]: Yes: Parkinson's Cardio/Vascular: Yes: CHF ...: No - Alcohol/Substance Use Hx Alcohol Use: No - Smoking History Smoking history: Never smoked Have you smoked in the past 12 months: No - Social History Usual Living Arrangement: Other (with and 2 sons in a house with 2 steps to enter and chair lift inside) Home Medications - Allergies Allergies/Adverse Reactions: Allergies Allergy/AdvReac Type Severity Reaction Status Date / Time No Known Drug Allergies Allergy Verified 06/20/18 10:20 sesame seed Allergy Mild flushing, Uncoded 06/20/18 10:20 itch - Home Medications Home Medications: Ambulatory Orders Carbidopa/Levodopa 25/100 [Sinemet 25/100 -] 1 each PO HS 06/20/18 Carbidopa/Levodopa [Sinemet 10-100 mg Tablet] 1 each PO QID 06/20/18 Furosemide 60 mg PO DAILY 06/20/18 Glimepiride 1 mg PO DAILY 06/20/18 Metoprolol Succinate [Toprol Xl] 50 mg PO BID 06/20/18 Multivitamin [One Daily] 1 each PO DAILY 06/20/18 Potassium Chloride [K-Dur -] 10 meq PO DAILY 06/20/18 Pramipexole Di-HCl [Pramipexole ER] 0.375 mg PO DAILY 06/20/18 Amantadine HCl [Gocovri] 137 mg PO HS 06/27/18 Review of Systems - Review of Systems Cardiovascular: reports: Edema Vital Signs: Vital Signs Temperature 98.1 F 06/29/18 14:30 Pulse Rate 93 H 06/29/18 14:30 Respiratory Rate 20 06/29/18 14:30 Blood Pressure 149/70 06/29/18 14:30 O2 Sat by Pulse Oximetry (%) 96 06/29/18 09:00 Constitutional: Yes: No Distress, Calm Neck: Yes: Supple Respiratory: Yes: Regular, Diminished Gastrointestinal: Yes: Normal Bowel Sounds, Soft Cardiovascular: Yes: Regular Rate and Rhythm JVD: No Carotid Bruit: No Heart Sounds: Yes: S1, S2 Murmur: Yes: Systolic Murmur, Grade 1 Edema: No - Other Data Labs, Other Data: CBC, BMP 06/28/18 06:20 06/29/18 06:45 NSR @ 75 LVH Ejection Fraction %: LVEF > or = 40 % Imaging - Results Chest X-ray: Report Reviewed (NAD) Cat Scan: Report Reviewed (HCT: Mod atrophy) Problem List - Problems (1) Hypertensive cardiomyopathy Code(s): I11.9 - HYPERTENSIVE HEART DISEASE WITHOUT HEART FAILURE; I43 - CARDIOMYOPATHY IN DISEASES CLASSIFIED ELSEWHERE Qualifiers: Heart failure presence: without heart failure Qualified Code(s): I11.9 - Hypertensive heart disease without heart failure; I43 - Cardiomyopathy in diseases classified elsewhere (2) Diastolic dysfunction Code(s): I51.9 - HEART DISEASE, UNSPECIFIED (3) CKD (chronic kidney disease) Code(s): N18.9 - CHRONIC KIDNEY DISEASE, UNSPECIFIED Qualifiers: Chronic kidney disease stage: stage 3 (moderate) Qualified Code(s): N18.3 - Chronic kidney disease, stage 3 (moderate) (4) Parkinsons disease Code(s): G20 - PARKINSON'S DISEASE (5) Peripheral edema Code(s): R60.9 - EDEMA, UNSPECIFIED Assessment/Plan 09/17/17 Echo: Normal LV size and fxn, mod TR, tr-mild TR 1. LE swelling and erythema possible cellulitis resolving, ruled out for DVT 2. CKD Stage 3 (baseline Cr 1.5) 3. Hypertensive cardiomyopathy 4. Parkinson's Disease 5. Toxic-Met encephelopathy 6. PD-related Restless Limbs Syndrome (RLS) P:1. Diuresis per renal with monitor diuretic response, renal fxn and electrolytes 2. Continue Toprol 50 bid, MELISSA-I/ARB once renal fxn stabilizes 3. Complete empiric abx course 4. PD meds per neuro 5. Thank you for consultative opportunity
[2018-06-29 17:45] LABS: URINE APPEARANCE CLOUDY; URINE BILIRUBIN NEGATIVE (<2.0 mg/dL); URINE COLOR YELLOW; URINE GLUCOSE (UA) NEGATIVE (NEGATIVE); URINE KETONE NEGATIVE (NEGATIVE); URINE LEUK ESTERASE 1+ (NEGATIVE); URINE NITRITE NEGATIVE (NEGATIVE); URINE PROTEIN NEGATIVE (NEGATIVE); URINE UROBILINOGEN NEGATIVE mg/dL (0.2-1.0)
[2018-06-29 17:54] LABS: EPI CELLS RARE /HPF (FEW); URINE HYALINE CAST 4 /lpf
--- NOTE | 2018-06-29 19:51 | PN ---
Progress Note, Physician Chief Complaint: Unable to walk , B/L Leg swelling decreased Change to Rocephen History of Present Illness: 73 year old female with a PMH significant for Parkinson's disease, CKD, HTN borderline DM, presented to the ED with increased pain and swelling in her right leg with a blister. She reports she has been having swollen legs for the past several months, but it has worsened over the past week. She reports it hurts to stand on her swollen legs. Denies fevers, dizziness, syncope, chest pain, SOB, n/v/d. Pt seen along with family - Current Medication List Current Medications: Active Medications Acetaminophen (Tylenol -) 500 mg PO Q6H PRN PRN Reason: PAIN LEVEL 1-5 Allopurinol (Zyloprim -) 100 mg PO DAILY [facility] Last Admin: 06/29/18 10:32 Dose: 100 mg Furosemide (Lasix Injection -) 40 mg IVPUSH DAILY [facility] Last Admin: 06/29/18 10:33 Dose: 40 mg Glimepiride (Amaryl -) 1 mg PO DAILY@0700 [facility] Last Admin: 06/29/18 06:42 Dose: 1 mg Heparin Sodium (Porcine) (Heparin -) 5,000 unit SQ BID [facility] Last Admin: 06/29/18 10:33 Dose: 5,000 unit Ceftriaxone Sodium 1 gm/ (Dextrose) 50 mls @ 100 mls/hr IVPB DAILY [facility]; Protocol Last Admin: 06/29/18 16:53 Dose: 100 mls/hr Insulin Aspart (Novolog Vial Sliding Scale -) 1 vial SQ TIDAC [facility]; Protocol Last Admin: 06/29/18 17:00 Dose: Not Given Metoprolol Succinate (Toprol Xl -) 50 mg PO BID [facility] Last Admin: 06/29/18 10:32 Dose: 50 mg Multivitamins/Minerals/Vitamin C (Tab-A-Vit -) 1 tab PO DAILY [facility] Last Admin: 06/29/18 10:34 Dose: 1 tab Potassium Chloride (K-Dur -) 20 meq PO DAILY [facility] Pramipexole Dihydrochloride (Mirapex -) 0.25 mg PO HS [facility] Last Admin: 06/28/18 22:18 Dose: 0.25 mg Quetiapine Fumarate (Seroquel -) 12.5 mg PO HS [facility] Last Admin: 06/28/18 22:17 Dose: 12.5 mg - Objective Vital Signs: Vital Signs Temperature 98 F 06/29/18 19:50 Pulse Rate 102 H 06/29/18 19:50 Respiratory Rate 20 06/29/18 19:50 Blood Pressure 143/75 06/29/18 19:50 O2 Sat by Pulse Oximetry (%) 96 06/29/18 09:00 Constitutional: Yes: No Distress, Anxious Eyes: Yes: Conjunctiva Clear HENT: Yes: Atraumatic, Normocephalic Neck: Yes: Supple, Trachea Midline Cardiovascular: Yes: Regular Rate and Rhythm, S1, S2 Respiratory: Yes: Regular, CTA Bilaterally Gastrointestinal: Yes: Normal Bowel Sounds, Soft Edema: No Labs: CBC, BMP 06/28/18 06:20 06/29/18 06:45 Problem List - Problems (1) CKD (chronic kidney disease) Code(s): N18.9 - CHRONIC KIDNEY DISEASE, UNSPECIFIED Qualifiers: Chronic kidney disease stage: stage 3 (moderate) Qualified Code(s): N18.3 - Chronic kidney disease, stage 3 (moderate) (2) Cellulitis of lower leg Code(s): L03.119 - CELLULITIS OF UNSPECIFIED PART OF LIMB (3) Leg pain Code(s): M79.606 - PAIN IN LEG, UNSPECIFIED Qualifiers: Laterality: bilateral Qualified Code(s): M79.604 - Pain in right leg; M79.605 - Pain in left leg (4) Parkinsons disease Code(s): G20 - PARKINSON'S DISEASE (5) Peripheral edema Code(s): R60.9 - EDEMA, UNSPECIFIED (6) Gout Code(s): M10.9 - GOUT, UNSPECIFIED Qualifiers: Gout site: knee Gout etiology: unspecified cause Laterality: unspecified laterality (7) Knee pain, bilateral Code(s): M25.561 - PAIN IN RIGHT KNEE; M25.562 - PAIN IN LEFT KNEE Qualifiers: Chronicity: acute Qualified Code(s): M25.561 - Pain in right knee; M25.562 - Pain in left knee (8) Rotator cuff injury Code(s): S46.009A - UNSP INJ MUSC/TEND THE ROTATOR CUFF OF UNSP SHOULDER, INIT Qualifiers: Encounter type: initial encounter Laterality: right Qualified Code(s): S46.001A - Unspecified injury of muscle(s) and tendon(s) of the rotator cuff of right shoulder, initial encounter Assessment/Plan 1) CKD (chronic kidney disease) Code(s): N18.9 - CHRONIC KIDNEY DISEASE, UNSPECIFIED Qualifiers: Chronic kidney disease stage: unspecified stage Qualified Code(s): N18.9 - Chronic kidney disease, unspecified (2) Cellulitis of lower leg Code(s): L03.119 - CELLULITIS OF UNSPECIFIED PART OF LIMB (3) Leg pain Code(s): M79.606 - PAIN IN LEG, UNSPECIFIED Qualifiers: Laterality: bilateral Qualified Code(s): M79.604 - Pain in right leg; M79.605 - Pain in left leg (4) Parkinsons disease Code(s): G20 - PARKINSON'S DISEASE (5) Peripheral edema Code(s): R60.9 - EDEMA, UNSPECIFIED (6) Gout Code(s): M10.9 - GOUT, UNSPECIFIED Qualifiers: Gout site: knee Gout etiology: unspecified cause Laterality: unspecified laterality (7) Knee pain, bilateral Code(s): M25.561 - PAIN IN RIGHT KNEE; M25.562 - PAIN IN LEFT KNEE Qualifiers: Chronicity: acute Qualified Code(s): M25.561 - Pain in right knee (8) Rotator cuff injury Code(s): S46.009A - UNSP INJ MUSC/TEND THE ROTATOR CUFF OF UNSP SHOULDER, INIT Qualifiers: Encounter type: initial encounter Laterality: right Qualified Code(s): S46.001A - Unspecified injury of muscle(s) and tendon(s) of the rotator cuff of right shoulder, initial encounter Pt seen By Physiatry Neurology Put back on Sinamet Pt is Totally dependent
--- NOTE | 2018-06-29 22:32 | PN ---
Progress Note (short form) - Note Progress Note: NEUROLOGY FOLLOW-UP: Events reviewed and discussed with RN. Now on Ceftriaxone. Not on Sinemet. EXAM: Pt is confused. [employer]. No month no year Staring. Pupils dilated (5mm) and reactive. Full ang and EOM's Rigid. Severe rest tremor. Severe cogwheel rigidity. IMP: B/L cerebral dysfunction (Encephalopathy/ delirium) Severe Parkinson's Disease Plan: Resume Sinemet CR 50/200 TID @ 7, 12, and 5- but give first dose stat. Continue Quetiapine 12.5 q HS. Can increase to 25 mg HS if no sleep tonight. Reexamine when back on standing L-Dopa. Thank you very much, Garry Islas MD
[2018-06-29] MEDS: QUEtiapine FUMARATE 25 MG TABLET (FP) PO SCH (22:59)
[2018-06-29] MEDS: PRAMIPEXOLE DIHYDROCHLORIDE 0.25 MG TABLET PO SCH (23:00)
[2018-06-30] MEDS ORDERED: PT OWN MED DRAWER 7, Y5N ONE ×3 (05:14→17:21)
[2018-06-30] MEDS: INSULIN SLIDING SCALE (NOVOLOG) 1 VIAL SQ SCH ×3 (06:11→17:37)
[2018-06-30] MEDS: GLIMEPIRIDE 1 MG TABLET (FP) PO SCH (06:12)
[2018-06-30 07:47] LABS: ANION GAP 10 MMOL/L (8-16); BLOOD UREA NITROGEN 27 mg/dL (7-18); CALCIUM 9.1 mg/dL (8.5-10.1); CHLORIDE 104 mmol/L (98-107); CO2 30 mmol/L (21-32); CREATININE 1.5 mg/dL (0.55-1.3); GLUCOSE,RANDOM 120 mg/dL (74-106); MAGNESIUM 2.8 mg/dL (1.8-2.4); PHOSPHOROUS 4.6 mg/dL (2.5-4.9); POTASSIUM 3.3 mmol/L (3.5-5.1); SODIUM 144 mmol/L (136-145)
[2018-06-30 08:22] LABS: BASO % 0.4 % (0-2.0); EOS % 0.2 % (0-4.5); HEMATOCRIT 33.6 % (32.4-45.2); HEMOGLOBIN 11.8 GM/dL (10.7-15.3); LYMPH % 24.6 % (8-40); MCH 30.9 pg (25.7-33.7); MEAN CELL VOLUME 88.2 fl (80-96); MEAN PLT VOLUME 8.2 fl (7.5-11.1); MONO % 4.9 % (3.8-10.2); NEUT % 69.9 % (42.8-82.8); PLATELET COUNT 289 K/MM3 (134-434); RBC 3.82 M/mm3 (3.60-5.2); RDW 13.6 % (11.6-15.6); WHITE BLOOD COUNT 10.6 K/mm3 (4.0-10.0)
[2018-06-30] MEDS ORDERED: cefTRIAXone SODIUM 1 GM VIAL ONE (10:01)
[2018-06-30] MEDS ORDERED: DEXTROSE 5%-WATER - 50 ML IVPB ONE (10:01)
--- NOTE | 2018-06-30 10:09 | PN ---
Progress Note, Physician Chief Complaint: Unable to walk , B/L Leg swelling decreased Change to Rocephen Pt is better oriented History of Present Illness: 73 year old female with a PMH significant for Parkinson's disease, CKD, HTN borderline DM, presented to the ED with increased pain and swelling in her right leg with a blister. She reports she has been having swollen legs for the past several months, but it has worsened over the past week. She reports it hurts to stand on her swollen legs. Denies fevers, dizziness, syncope, chest pain, SOB, n/v/d. Pt being started on CD/LD Pt is better Pt is sleeping now - Current Medication List Current Medications: Active Medications Acetaminophen (Tylenol -) 500 mg PO Q6H PRN PRN Reason: PAIN LEVEL 1-5 Allopurinol (Zyloprim -) 100 mg PO DAILY [facility] Last Admin: 06/29/18 10:32 Dose: 100 mg Carbidopa/Levodopa (Sinemet *Cr* 50/200 -) 1 combo PO TID@0700,1200,1700 [facility] Last Admin: 06/30/18 06:12 Dose: 1 combo Furosemide (Lasix Injection -) 40 mg IVPUSH DAILY [facility] Last Admin: 06/29/18 10:33 Dose: 40 mg Glimepiride (Amaryl -) 1 mg PO DAILY@0700 [facility] Last Admin: 06/30/18 06:12 Dose: 1 mg Heparin Sodium (Porcine) (Heparin -) 5,000 unit SQ BID [facility] Last Admin: 06/29/18 23:00 Dose: 5,000 unit Ceftriaxone Sodium 1 gm/ (Dextrose) 50 mls @ 100 mls/hr IVPB DAILY [facility]; Protocol Last Admin: 06/29/18 16:53 Dose: 100 mls/hr Insulin Aspart (Novolog Vial Sliding Scale -) 1 vial SQ TIDAC [facility]; Protocol Last Admin: 06/30/18 06:11 Dose: 2 units Metoprolol Succinate (Toprol Xl -) 50 mg PO BID [facility] Last Admin: 06/29/18 23:00 Dose: 50 mg Multivitamins/Minerals/Vitamin C (Tab-A-Vit -) 1 tab PO DAILY [facility] Last Admin: 06/29/18 10:34 Dose: 1 tab Potassium Chloride (K-Dur -) 20 meq PO DAILY [facility] Pramipexole Dihydrochloride (Mirapex -) 0.25 mg PO [facility] Last Admin: 06/29/18 23:00 Dose: 0.25 mg Quetiapine Fumarate (Seroquel -) 12.5 mg PO [facility] Last Admin: 06/29/18 22:59 Dose: 12.5 mg - Objective Vital Signs: Vital Signs Temperature 97.6 F 06/30/18 09:00 Pulse Rate 92 H 06/30/18 09:00 Respiratory Rate 20 06/30/18 09:00 Blood Pressure 131/67 06/30/18 09:00 O2 Sat by Pulse Oximetry (%) 96 06/29/18 21:00 Constitutional: Yes: No Distress Eyes: Yes: Conjunctiva Clear, EOM Intact HENT: Yes: Atraumatic, Normocephalic Neck: Yes: Supple, Trachea Midline Cardiovascular: Yes: Regular Rate and Rhythm, S1, S2 Respiratory: Yes: Regular, CTA Bilaterally Gastrointestinal: Yes: Normal Bowel Sounds, Soft Musculoskeletal: Yes: Joint Stiffness Edema: No Peripheral Pulses WNL: Yes Neurological: Yes: Alert, Oriented, Cran Nerves II-XII Intact Labs: CBC, BMP 06/30/18 06:30 06/30/18 06:30 Problem List - Problems (1) CKD (chronic kidney disease) Code(s): N18.9 - CHRONIC KIDNEY DISEASE, UNSPECIFIED Qualifiers: Chronic kidney disease stage: stage 3 (moderate) Qualified Code(s): N18.3 - Chronic kidney disease, stage 3 (moderate) (2) Cellulitis of lower leg Code(s): L03.119 - CELLULITIS OF UNSPECIFIED PART OF LIMB (3) Leg pain Code(s): M79.606 - PAIN IN LEG, UNSPECIFIED Qualifiers: Laterality: bilateral Qualified Code(s): M79.604 - Pain in right leg; M79.605 - Pain in left leg (4) Parkinsons disease Code(s): G20 - PARKINSON'S DISEASE (5) Peripheral edema Code(s): R60.9 - EDEMA, UNSPECIFIED (6) Gout Code(s): M10.9 - GOUT, UNSPECIFIED Qualifiers: Gout site: knee Gout etiology: unspecified cause Laterality: unspecified laterality (7) Knee pain, bilateral Code(s): M25.561 - PAIN IN RIGHT KNEE; M25.562 - PAIN IN LEFT KNEE Qualifiers: Chronicity: acute Qualified Code(s): M25.561 - Pain in right knee; M25.562 - Pain in left knee (8) Rotator cuff injury Code(s): S46.009A - UNSP INJ MUSC/TEND THE ROTATOR CUFF OF UNSP SHOULDER, INIT Qualifiers: Encounter type: initial encounter Laterality: right Qualified Code(s): S46.001A - Unspecified injury of muscle(s) and tendon(s) of the rotator cuff of right shoulder, initial encounter Assessment/Plan 1) CKD (chronic kidney disease) Code(s): N18.9 - CHRONIC KIDNEY DISEASE, UNSPECIFIED Qualifiers: Chronic kidney disease stage: unspecified stage Qualified Code(s): N18.9 - Chronic kidney disease, unspecified (2) Cellulitis of lower leg Code(s): L03.119 - CELLULITIS OF UNSPECIFIED PART OF LIMB (3) Leg pain Code(s): M79.606 - PAIN IN LEG, UNSPECIFIED Qualifiers: Laterality: bilateral Qualified Code(s): M79.604 - Pain in right leg; M79.605 - Pain in left leg (4) Parkinsons disease Code(s): G20 - PARKINSON'S DISEASE (5) Peripheral edema Code(s): R60.9 - EDEMA, UNSPECIFIED (6) Gout Code(s): M10.9 - GOUT, UNSPECIFIED Qualifiers: Gout site: knee Gout etiology: unspecified cause Laterality: unspecified laterality (7) Knee pain, bilateral Code(s): M25.561 - PAIN IN RIGHT KNEE; M25.562 - PAIN IN LEFT KNEE Qualifiers: Chronicity: acute Qualified Code(s): M25.561 - Pain in right knee (8) Rotator cuff injury Code(s): S46.009A - UNSP INJ MUSC/TEND THE ROTATOR CUFF OF UNSP SHOULDER, INIT Qualifiers: Encounter type: initial encounter Laterality: right Qualified Code(s): S46.001A - Unspecified injury of muscle(s) and tendon(s) of the rotator cuff of right shoulder, initial encounter Pt is better today Pt is on CD/LD we will Uptitrate the Meds PT Cellulitis of Both legs better
[2018-06-30] MEDS: CEFTRIAXONE 1 GM in DEXTROSE 5%-WATER - 50 ML IVPB SCH (10:24)
[2018-06-30] MEDS: MULTIVITAMINS (DAILY MVI) TABLET (FP) PO SCH (10:25)
[2018-06-30] MEDS: HEPARIN NA (PORCINE) 5,000 UNITS/ML 1ML VIAL SQ SCH ×2 (10:25→22:11)
[2018-06-30] MEDS: ALLOPURINOL 100 MG TABLET (FP) PO SCH (10:25)
[2018-06-30] MEDS: FUROSEMIDE 40 MG/4 ML INJECTABLE VIAL IVPUSH SCH (10:25)
[2018-06-30] MEDS: POTASSIUM CHLORIDE TABS 20 MEQ TABLET.ER (FP) PO SCH (10:25)
--- NOTE | 2018-06-30 11:11 | PN ---
Progress Note, Physician History of Present Illness: LE edema and erythema resolved with diuresis and empiric abx for cellulitis. Denies chest pain or dyspnea. - Current Medication List Current Medications: Active Medications Acetaminophen (Tylenol -) 500 mg PO Q6H PRN PRN Reason: PAIN LEVEL 1-5 Allopurinol (Zyloprim -) 100 mg PO DAILY [facility] Last Admin: 06/30/18 10:25 Dose: 100 mg Carbidopa/Levodopa (Sinemet *Cr* 50/200 -) 1 combo PO TID@0700,1200,1700 [facility] Last Admin: 06/30/18 06:12 Dose: 1 combo Furosemide (Lasix Injection -) 40 mg IVPUSH DAILY [facility] Last Admin: 06/30/18 10:25 Dose: 40 mg Glimepiride (Amaryl -) 1 mg PO DAILY@0700 [facility] Last Admin: 06/30/18 06:12 Dose: 1 mg Heparin Sodium (Porcine) (Heparin -) 5,000 unit SQ BID [facility] Last Admin: 06/30/18 10:25 Dose: 5,000 unit Ceftriaxone Sodium 1 gm/ (Dextrose) 50 mls @ 100 mls/hr IVPB DAILY [facility]; Protocol Last Admin: 06/30/18 10:24 Dose: 100 mls/hr Insulin Aspart (Novolog Vial Sliding Scale -) 1 vial SQ TIDAC [facility]; Protocol Last Admin: 06/30/18 06:11 Dose: 2 units Metoprolol Succinate (Toprol Xl -) 50 mg PO BID [facility] Last Admin: 06/30/18 10:25 Dose: 50 mg Multivitamins/Minerals/Vitamin C (Tab-A-Vit -) 1 tab PO DAILY [facility] Last Admin: 06/30/18 10:25 Dose: 1 tab Potassium Chloride (K-Dur -) 20 meq PO DAILY [facility] Last Admin: 06/30/18 10:25 Dose: 20 meq Potassium Chloride (K-Dur -) 40 meq PO ONCE ONE Stop: 06/30/18 10:56 Pramipexole Dihydrochloride (Mirapex -) 0.25 mg PO HS [facility] Last Admin: 06/29/18 23:00 Dose: 0.25 mg Quetiapine Fumarate (Seroquel -) 12.5 mg PO HS [facility] Last Admin: 06/29/18 22:59 Dose: 12.5 mg - Objective Vital Signs: Vital Signs Temperature 97.6 F 06/30/18 09:00 Pulse Rate 92 H 06/30/18 09:00 Respiratory Rate 20 06/30/18 09:00 Blood Pressure 131/67 06/30/18 09:00 O2 Sat by Pulse Oximetry (%) 96 06/29/18 21:00 Constitutional: Yes: No Distress, Calm Neck: Yes: Supple Cardiovascular: Yes: Regular Rate and Rhythm Respiratory: Yes: Regular, Diminished, On Nasal O2 Gastrointestinal: Yes: Normal Bowel Sounds, Soft, Abdomen, Obese Edema: No Neurological: Yes: Tremors Labs: CBC, BMP 06/30/18 06:30 06/30/18 06:30 Problem List - Problems (1) Hypertensive cardiomyopathy Code(s): I11.9 - HYPERTENSIVE HEART DISEASE WITHOUT HEART FAILURE; I43 - CARDIOMYOPATHY IN DISEASES CLASSIFIED ELSEWHERE Qualifiers: Heart failure presence: without heart failure Qualified Code(s): I11.9 - Hypertensive heart disease without heart failure; I43 - Cardiomyopathy in diseases classified elsewhere (2) Diastolic dysfunction Code(s): I51.9 - HEART DISEASE, UNSPECIFIED (3) CKD (chronic kidney disease) Code(s): N18.9 - CHRONIC KIDNEY DISEASE, UNSPECIFIED Qualifiers: Chronic kidney disease stage: stage 3 (moderate) Qualified Code(s): N18.3 - Chronic kidney disease, stage 3 (moderate) (4) Parkinsons disease Code(s): G20 - PARKINSON'S DISEASE (5) Peripheral edema Code(s): R60.9 - EDEMA, UNSPECIFIED Assessment/Plan 09/17/17 Echo: Normal LV size and fxn, mod TR, tr-mild TR 1. LE swelling and erythema possible cellulitis resolving, ruled out for DVT 2. CKD Stage 3 (baseline Cr 1.5) 3. Hypertensive cardiomyopathy 4. 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 Type 2 DM P:1. Oral diuresis with monitor diuretic response, renal fxn and electrolytes 2. Continue Toprol 50 bid, MELISSA-I/ARB once renal fxn stabilizes 3. Complete empiric abx course 4. PD meds per neuro 5. DVT prophylaxis
[2018-06-30] MEDS ORDERED: POTASSIUM CHLORIDE TABS 20 MEQ TABLET.ER (FP) PO ONE (11:30)
--- NOTE | 2018-06-30 12:40 | PN ---
Progress Note (short form) - Note Progress Note: Renal follow up for CKD Pt seen and examined at the bedside feels much better no pain in legs now Vital Signs Temperature 97.6 F 06/30/18 09:00 Pulse Rate 92 H 06/30/18 09:00 Respiratory Rate 20 06/30/18 09:00 Blood Pressure 131/67 06/30/18 09:00 O2 Sat by Pulse Oximetry (%) 94 L 06/30/18 09:00 Intake & Output 06/27/18 06/28/18 06/29/18 06/30/18 23:59 23:59 23:59 23:59 Intake Total 415 1000 310 Output Total 50 Balance 415 950 310 Weight 81.193 kg 82.282 kg NAD awake and alert neck supple RRR improving LE edema CBC, BMP 06/30/18 06:30 06/30/18 06:30 Current Medications Acetaminophen (Tylenol -) 500 mg PO Q6H PRN PRN Reason: PAIN LEVEL 1-5 Allopurinol (Zyloprim -) 100 mg PO DAILY [facility] Last Admin: 06/30/18 10:25 Dose: 100 mg Carbidopa/Levodopa (Sinemet *Cr* 50/200 -) 1 combo PO TID@0700,1200,1700 [facility] Last Admin: 06/30/18 11:30 Dose: 1 combo Furosemide (Lasix -) 40 mg PO DAILY [facility] Glimepiride (Amaryl -) 1 mg PO DAILY@0700 [facility] Last Admin: 06/30/18 06:12 Dose: 1 mg Heparin Sodium (Porcine) (Heparin -) 5,000 unit SQ BID [facility] Last Admin: 06/30/18 10:25 Dose: 5,000 unit Ceftriaxone Sodium 1 gm/ (Dextrose) 50 mls @ 100 mls/hr IVPB DAILY [facility]; Protocol Last Admin: 06/30/18 10:24 Dose: 100 mls/hr Insulin Aspart (Novolog Vial Sliding Scale -) 1 vial SQ TIDAC [facility]; Protocol Last Admin: 06/30/18 11:31 Dose: Not Given Metoprolol Succinate (Toprol Xl -) 50 mg PO BID [facility] Last Admin: 06/30/18 10:25 Dose: 50 mg Multivitamins/Minerals/Vitamin C (Tab-A-Vit -) 1 tab PO DAILY [facility] Last Admin: 06/30/18 10:25 Dose: 1 tab Potassium Chloride (K-Dur -) 20 meq PO DAILY [facility] Last Admin: 06/30/18 10:25 Dose: 20 meq Pramipexole Dihydrochloride (Mirapex -) 0.25 mg PO HS [facility] Last Admin: 06/29/18 23:00 Dose: 0.25 mg Quetiapine Fumarate (Seroquel -) 12.5 mg PO HS [facility] Last Admin: 06/29/18 22:59 Dose: 12.5 mg 73 year old woman with hx of CKD, Parkinsons, DM, Hypertension who presented with LE swelling and blister. #CKD Stage 3 (baseline Cr 1.5) #LE swelling and erythema r/o cellulitis #Parkinson's Disease #Mild Hypokalemia Renal function at baseline can change IV Lasix to PO starting tomorrow management of Parkinson meds as per neurology abx as per ID discharge planning as per primary supplament oral K, should be on KCL 20meq po daily as an outpatient Thank you Von Campos DO
--- NOTE | 2018-06-30 14:35 | PN ---
Progress Note, Physician History of Present Illness: patients confusion much better still confusion exists leg looking better - Current Medication List Current Medications: Active Medications Acetaminophen (Tylenol -) 500 mg PO Q6H PRN PRN Reason: PAIN LEVEL 1-5 Allopurinol (Zyloprim -) 100 mg PO DAILY [facility] Last Admin: 06/30/18 10:25 Dose: 100 mg Carbidopa/Levodopa (Sinemet *Cr* 50/200 -) 1 combo PO TID@0700,1200,1700 [facility] Last Admin: 06/30/18 11:30 Dose: 1 combo Furosemide (Lasix -) 40 mg PO DAILY [facility] Glimepiride (Amaryl -) 1 mg PO DAILY@0700 [facility] Last Admin: 06/30/18 06:12 Dose: 1 mg Heparin Sodium (Porcine) (Heparin -) 5,000 unit SQ BID [facility] Last Admin: 06/30/18 10:25 Dose: 5,000 unit Ceftriaxone Sodium 1 gm/ (Dextrose) 50 mls @ 100 mls/hr IVPB DAILY [facility]; Protocol Last Admin: 06/30/18 10:24 Dose: 100 mls/hr Insulin Aspart (Novolog Vial Sliding Scale -) 1 vial SQ TIDAC [facility]; Protocol Last Admin: 06/30/18 11:31 Dose: Not Given Metoprolol Succinate (Toprol Xl -) 50 mg PO BID [facility] Last Admin: 06/30/18 10:25 Dose: 50 mg Multivitamins/Minerals/Vitamin C (Tab-A-Vit -) 1 tab PO DAILY [facility] Last Admin: 06/30/18 10:25 Dose: 1 tab Potassium Chloride (K-Dur -) 20 meq PO DAILY [facility] Last Admin: 06/30/18 10:25 Dose: 20 meq Pramipexole Dihydrochloride (Mirapex -) 0.25 mg PO HS [facility] Last Admin: 06/29/18 23:00 Dose: 0.25 mg Quetiapine Fumarate (Seroquel -) 12.5 mg PO HS [facility] Last Admin: 06/29/18 22:59 Dose: 12.5 mg - Objective Vital Signs: Vital Signs Temperature 97.6 F 06/30/18 09:00 Pulse Rate 92 H 06/30/18 09:00 Respiratory Rate 20 06/30/18 09:00 Blood Pressure 131/67 06/30/18 09:00 O2 Sat by Pulse Oximetry (%) 94 L 06/30/18 09:00 Constitutional: Yes: No Distress, Calm Cardiovascular: Yes: Regular Rate and Rhythm Respiratory: Yes: Regular, CTA Bilaterally Gastrointestinal: Yes: Normal Bowel Sounds, Soft Musculoskeletal: Yes: WNL Extremities: Yes: Erythema (improving), Other Neurological: Yes: Alert, Confusion Psychiatric: Yes: Other Labs: CBC, BMP 06/30/18 06:30 06/30/18 06:30 Assessment/Plan Problem List - Problems (1) CKD (chronic kidney disease) Code(s): N18.9 - CHRONIC KIDNEY DISEASE, UNSPECIFIED Qualifiers: Chronic kidney disease stage: unspecified stage Qualified Code(s): N18.9 - Chronic kidney disease, unspecified (2) Cellulitis of lower leg Code(s): L03.119 - CELLULITIS OF UNSPECIFIED PART OF LIMB (3) Leg pain Code(s): M79.606 - PAIN IN LEG, UNSPECIFIED Qualifiers: Laterality: bilateral Qualified Code(s): M79.604 - Pain in right leg; M79.605 - Pain in left leg (4) Parkinsons disease Code(s): G20 - PARKINSON'S DISEASE (5) Peripheral edema Code(s): R60.9 - EDEMA, UNSPECIFIED (6) Gout Code(s): M10.9 - GOUT, UNSPECIFIED Qualifiers: Gout site: knee Gout etiology: unspecified cause Laterality: unspecified laterality (7) Knee pain, bilateral Code(s): M25.561 - PAIN IN RIGHT KNEE; M25.562 - PAIN IN LEFT KNEE Qualifiers: Chronicity: acute Qualified Code(s): M25.561 - Pain in right knee; M25.562 - Pain in left knee (8) Rotator cuff injury Code(s): S46.009A - UNSP INJ MUSC/TEND THE ROTATOR CUFF OF UNSP SHOULDER, INIT Qualifiers: Encounter type: initial encounter Laterality: right Qualified Code(s): S46.001A - Unspecified injury of muscle(s) and tendon(s) of the rotator cuff of right shoulder, initial encounter r/o uti plan continue abx await cx report watch for fevers and creatinine cbc tomorrow
--- NOTE | 2018-06-30 21:34 | PN ---
Progress Note (short form) - Note Progress Note: NEUROLOGY PROGRESS: Events reviewed, patient examined. Back on L-Dopa. Sleeping but awakens to name. Notes decreased leg pains. Able to sleep. Ox [facility]. October 2017 but recalls Dec after 3 min. Trump > pmurt. Recall 2 of 3 objects at 3 mins. Decreased rest tremor. Decreased cogwheeling. Moves all fours with normal strength. IMP: Parkinson's disease- Better on L-Dopa. PD-related Restless Legs Syndrome (RLS). Toxic-metabolic encephalopathy- improving (although an underlying OMS is quite likely). SUGGEST: Continue CD/LD ER 50/200 at 7, 12, and 5 with low-dose pramipexole ( 0.25 mg HS vs RLS). In 2 days increase Sinemet to ER 50/200 QID @ 6, 10, 2 and 6. Mobilize OO bed to chair TID for meals. PT eval and bedside Rx. Thank you very much, Garry Islas MD
[2018-06-30] MEDS: QUEtiapine FUMARATE 25 MG TABLET (FP) PO SCH (22:10)
[2018-06-30] MEDS: PRAMIPEXOLE DIHYDROCHLORIDE 0.25 MG TABLET PO SCH (22:10)
[2018-07-01] MEDS: INSULIN SLIDING SCALE (NOVOLOG) 1 VIAL SQ SCH ×3 (06:24→18:14)
[2018-07-01] MEDS: GLIMEPIRIDE 1 MG TABLET (FP) PO SCH (06:25)
[2018-07-01] MEDS ORDERED: PT OWN MED DRAWER 7, Y5N ONE ×2 (10:21→13:10)
[2018-07-01] MEDS ORDERED: cefTRIAXone SODIUM 1 GM VIAL ONE (10:22)
[2018-07-01] MEDS ORDERED: DEXTROSE 5%-WATER - 50 ML IVPB ONE (10:22)
[2018-07-01] MEDS: FUROSEMIDE 40 MG TABLET (FP) PO SCH (10:26)
[2018-07-01] MEDS: MULTIVITAMINS (DAILY MVI) TABLET (FP) PO SCH (10:26)
[2018-07-01] MEDS: ALLOPURINOL 100 MG TABLET (FP) PO SCH (10:26)
[2018-07-01] MEDS: HEPARIN NA (PORCINE) 5,000 UNITS/ML 1ML VIAL SQ SCH ×2 (10:27→21:53)
[2018-07-01] MEDS: CEFTRIAXONE 1 GM in DEXTROSE 5%-WATER - 50 ML IVPB SCH (10:27)
[2018-07-01] MEDS: POTASSIUM CHLORIDE TABS 20 MEQ TABLET.ER (FP) PO SCH (10:27)
[2018-07-01 10:39] LABS: ANION GAP 9 MMOL/L (8-16); BLOOD UREA NITROGEN 35 mg/dL (7-18); CALCIUM 9.1 mg/dL (8.5-10.1); CHLORIDE 103 mmol/L (98-107); CO2 30 mmol/L (21-32); CREATININE 1.2 mg/dL (0.55-1.3); GLUCOSE,RANDOM 93 mg/dL (74-106); POTASSIUM 3.6 mmol/L (3.5-5.1); SODIUM 142 mmol/L (136-145)
[2018-07-01 11:18] LABS: BASO % 0.8 % (0-2.0); EOS % 1.6 % (0-4.5); HEMATOCRIT 34.5 % (32.4-45.2); HEMOGLOBIN 11.7 GM/dL (10.7-15.3); LYMPH % 23.4 % (8-40); MCH 29.9 pg (25.7-33.7); MCHC 33.9 g/dl (32.0-36.0); MEAN CELL VOLUME 88.3 fl (80-96); MEAN PLT VOLUME 8.3 fl (7.5-11.1); MONO % 5.1 % (3.8-10.2); NEUT % 69.1 % (42.8-82.8); PLATELET COUNT 268 K/MM3 (134-434); RBC 3.91 M/mm3 (3.60-5.2); RDW 13.6 % (11.6-15.6); WHITE BLOOD COUNT 8.2 K/mm3 (4.0-10.0)
--- NOTE | 2018-07-01 12:18 | PN ---
Progress Note, Physician History of Present Illness: LE edema and erythema resolved with diuresis and empiric abx for cellulitis. Denies chest pain or dyspnea. - Current Medication List Current Medications: Active Medications Acetaminophen (Tylenol -) 500 mg PO Q6H PRN PRN Reason: PAIN LEVEL 1-5 Allopurinol (Zyloprim -) 100 mg PO DAILY [facility] Last Admin: 07/01/18 10:26 Dose: 100 mg Carbidopa/Levodopa (Sinemet *Cr* 50/200 -) 1 combo PO TID@0700,1200,1700 [facility] Last Admin: 07/01/18 06:25 Dose: 1 combo Furosemide (Lasix -) 40 mg PO DAILY [facility] Last Admin: 07/01/18 10:26 Dose: 40 mg Glimepiride (Amaryl -) 1 mg PO DAILY@0700 [facility] Last Admin: 07/01/18 06:25 Dose: 1 mg Heparin Sodium (Porcine) (Heparin -) 5,000 unit SQ BID [facility] Last Admin: 07/01/18 10:27 Dose: 5,000 unit Ceftriaxone Sodium 1 gm/ (Dextrose) 50 mls @ 100 mls/hr IVPB DAILY [facility]; Protocol Last Admin: 07/01/18 10:27 Dose: 100 mls/hr Insulin Aspart (Novolog Vial Sliding Scale -) 1 vial SQ TIDAC [facility]; Protocol Last Admin: 07/01/18 06:24 Dose: Not Given Metoprolol Succinate (Toprol Xl -) 50 mg PO BID [facility] Last Admin: 07/01/18 10:27 Dose: 50 mg Multivitamins/Minerals/Vitamin C (Tab-A-Vit -) 1 tab PO DAILY [facility] Last Admin: 07/01/18 10:26 Dose: 1 tab Potassium Chloride (K-Dur -) 20 meq PO DAILY [facility] Last Admin: 07/01/18 10:27 Dose: 20 meq Pramipexole Dihydrochloride (Mirapex -) 0.25 mg PO HS [facility] Last Admin: 06/30/18 22:10 Dose: 0.25 mg Quetiapine Fumarate (Seroquel -) 12.5 mg PO HS [facility] Last Admin: 06/30/18 22:10 Dose: 12.5 mg - Objective Vital Signs: Vital Signs Temperature 98.6 F 07/01/18 10:39 Pulse Rate 85 07/01/18 10:39 Respiratory Rate 18 12/21/18 10:39 Blood Pressure 118/58 L 07/01/18 10:39 O2 Sat by Pulse Oximetry (%) 94 L 06/30/18 09:00 Constitutional: Yes: No Distress, Calm Neck: Yes: Supple Cardiovascular: Yes: Regular Rate and Rhythm Respiratory: Yes: Regular, Diminished Gastrointestinal: Yes: Normal Bowel Sounds, Soft Edema: No Labs: CBC, BMP 07/01/18 10:42 07/01/18 09:42 Problem List - Problems (1) Hypertensive cardiomyopathy Code(s): I11.9 - HYPERTENSIVE HEART DISEASE WITHOUT HEART FAILURE; I43 - CARDIOMYOPATHY IN DISEASES CLASSIFIED ELSEWHERE Qualifiers: Heart failure presence: without heart failure Qualified Code(s): I11.9 - Hypertensive heart disease without heart failure; I43 - Cardiomyopathy in diseases classified elsewhere (2) Diastolic dysfunction Code(s): I51.9 - HEART DISEASE, UNSPECIFIED (3) CKD (chronic kidney disease) Code(s): N18.9 - CHRONIC KIDNEY DISEASE, UNSPECIFIED Qualifiers: Chronic kidney disease stage: stage 3 (moderate) Qualified Code(s): N18.3 - Chronic kidney disease, stage 3 (moderate) (4) Parkinsons disease Code(s): G20 - PARKINSON'S DISEASE (5) Peripheral edema Code(s): R60.9 - EDEMA, UNSPECIFIED Assessment/Plan 09/17/17 Echo: Normal LV size and fxn, mod TR, tr-mild TR 1. LE swelling and erythema possible cellulitis resolving, ruled out for DVT 2. CKD Stage 3 (baseline Cr 1.5) 3. Hypertensive cardiomyopathy 4. 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 Type 2 DM P:1. Oral diuresis with monitor diuretic response, renal fxn and electrolytes 2. Continue Toprol 50 bid, MELISSA-I/ARB once renal fxn stabilizes 3. Complete empiric abx course 4. PD and RLS meds per neuro 5. DVT prophylaxis
--- NOTE | 2018-07-01 13:10 | PN ---
Progress Note (short form) - Note Progress Note: Renal follow up for CKD Pt seen and examined at the bedside feels much better no acute complaints Vital Signs Temperature 98.6 F 07/01/18 10:39 Pulse Rate 85 07/01/18 10:39 Respiratory Rate 18 07/01/18 10:39 Blood Pressure 118/58 L 07/01/18 10:39 O2 Sat by Pulse Oximetry (%) 94 L 06/30/18 09:00 Intake & Output 06/28/18 06/29/18 06/30/18 07/01/18 23:59 23:59 23:59 23:59 Intake Total 415 1000 950 Output Total 50 Balance 415 950 950 Weight 82.282 kg NAD awake and alert neck supple RRR improving LE edema CBC, BMP 07/01/18 10:42 07/01/18 09:42 Current Medications Acetaminophen (Tylenol -) 500 mg PO Q6H PRN PRN Reason: PAIN LEVEL 1-5 Allopurinol (Zyloprim -) 100 mg PO DAILY [facility] Last Admin: 07/01/18 10:26 Dose: 100 mg Carbidopa/Levodopa (Sinemet *Cr* 50/200 -) 1 combo PO TID@0700,1200,1700 [facility] Last Admin: 07/01/18 06:25 Dose: 1 combo Furosemide (Lasix -) 40 mg PO DAILY [facility] Last Admin: 07/01/18 10:26 Dose: 40 mg Glimepiride (Amaryl -) 1 mg PO DAILY@0700 [facility] Last Admin: 07/01/18 06:25 Dose: 1 mg Heparin Sodium (Porcine) (Heparin -) 5,000 unit SQ BID [facility] Last Admin: 07/01/18 10:27 Dose: 5,000 unit Ceftriaxone Sodium 1 gm/ (Dextrose) 50 mls @ 100 mls/hr IVPB DAILY [facility]; Protocol Last Admin: 07/01/18 10:27 Dose: 100 mls/hr Insulin Aspart (Novolog Vial Sliding Scale -) 1 vial SQ TIDAC [facility]; Protocol Last Admin: 07/01/18 12:21 Dose: Not Given Metoprolol Succinate (Toprol Xl -) 50 mg PO BID [facility] Last Admin: 07/01/18 10:27 Dose: 50 mg Multivitamins/Minerals/Vitamin C (Tab-A-Vit -) 1 tab PO DAILY [facility] Last Admin: 07/01/18 10:26 Dose: 1 tab Potassium Chloride (K-Dur -) 20 meq PO DAILY [facility] Last Admin: 07/01/18 10:27 Dose: 20 meq Pramipexole Dihydrochloride (Mirapex -) 0.25 mg PO HS [facility] Last Admin: 06/30/18 22:10 Dose: 0.25 mg Quetiapine Fumarate (Seroquel -) 12.5 mg PO HS [facility] Last Admin: 06/30/18 22:10 Dose: 12.5 mg 73 year old woman with hx of CKD, Parkinsons, DM, Hypertension who presented with LE swelling and blister. #CKD Stage 3 (baseline Cr 1.5) #LE swelling and erythema r/o cellulitis #Parkinson's Disease #Mild Hypokalemia Renal function at baseline continue PO lasix daily continue oral KCL dily management of Parkinson meds as per neurology convert Abx to oral when ok with ID Discharge planning as per primary will sign off case at this time, please call with any questions or concerns Thank you Von Campos DO
--- NOTE | 2018-07-01 14:53 | PN ---
Progress Note, Physician History of Present Illness: stable minimal confusion - Current Medication List Current Medications: Active Medications Acetaminophen (Tylenol -) 500 mg PO Q6H PRN PRN Reason: PAIN LEVEL 1-5 Allopurinol (Zyloprim -) 100 mg PO DAILY [facility] Last Admin: 07/01/18 10:26 Dose: 100 mg Carbidopa/Levodopa (Sinemet *Cr* 50/200 -) 1 combo PO TID@0700,1200,1700 [facility] Last Admin: 07/01/18 13:10 Dose: 1 combo Furosemide (Lasix -) 40 mg PO DAILY [facility] Last Admin: 07/01/18 10:26 Dose: 40 mg Glimepiride (Amaryl -) 1 mg PO DAILY@0700 [facility] Last Admin: 07/01/18 06:25 Dose: 1 mg Heparin Sodium (Porcine) (Heparin -) 5,000 unit SQ BID [facility] Last Admin: 07/01/18 10:27 Dose: 5,000 unit Ceftriaxone Sodium 1 gm/ (Dextrose) 50 mls @ 100 mls/hr IVPB DAILY [facility]; Protocol Last Admin: 07/01/18 10:27 Dose: 100 mls/hr Insulin Aspart (Novolog Vial Sliding Scale -) 1 vial SQ TIDAC [facility]; Protocol Last Admin: 07/01/18 12:21 Dose: Not Given Metoprolol Succinate (Toprol Xl -) 50 mg PO BID [facility] Last Admin: 07/01/18 10:27 Dose: 50 mg Multivitamins/Minerals/Vitamin C (Tab-A-Vit -) 1 tab PO DAILY [facility] Last Admin: 07/01/18 10:26 Dose: 1 tab Potassium Chloride (K-Dur -) 20 meq PO DAILY [facility] Last Admin: 07/01/18 10:27 Dose: 20 meq Pramipexole Dihydrochloride (Mirapex -) 0.25 mg PO HS [facility] Last Admin: 06/30/18 22:10 Dose: 0.25 mg Quetiapine Fumarate (Seroquel -) 12.5 mg PO HS [facility] Last Admin: 06/30/18 22:10 Dose: 12.5 mg - Objective Vital Signs: Vital Signs Temperature 98.6 F 07/01/18 10:39 Pulse Rate 85 07/01/18 10:39 Respiratory Rate 18 07/01/18 10:39 Blood Pressure 118/58 L 07/01/18 10:39 O2 Sat by Pulse Oximetry (%) 94 L 06/30/18 09:00 Constitutional: Yes: No Distress, Calm Cardiovascular: Yes: Regular Rate and Rhythm Respiratory: Yes: Regular, CTA Bilaterally Gastrointestinal: Yes: Normal Bowel Sounds, Soft Musculoskeletal: Yes: WNL Extremities: Yes: Erythema (improved), Other Neurological: Yes: Alert, Confusion Psychiatric: Yes: Alert Labs: CBC, BMP 07/01/18 10:42 07/01/18 09:42 Assessment/Plan Problem List - Problems (1) CKD (chronic kidney disease) Code(s): N18.9 - CHRONIC KIDNEY DISEASE, UNSPECIFIED Qualifiers: Chronic kidney disease stage: unspecified stage Qualified Code(s): N18.9 - Chronic kidney disease, unspecified (2) Cellulitis of lower leg Code(s): L03.119 - CELLULITIS OF UNSPECIFIED PART OF LIMB (3) Leg pain Code(s): M79.606 - PAIN IN LEG, UNSPECIFIED Qualifiers: Laterality: bilateral Qualified Code(s): M79.604 - Pain in right leg; M79.605 - Pain in left leg (4) Parkinsons disease Code(s): G20 - PARKINSON'S DISEASE (5) Peripheral edema Code(s): R60.9 - EDEMA, UNSPECIFIED (6) Gout Code(s): M10.9 - GOUT, UNSPECIFIED Qualifiers: Gout site: knee Gout etiology: unspecified cause Laterality: unspecified laterality (7) Knee pain, bilateral Code(s): M25.561 - PAIN IN RIGHT KNEE; M25.562 - PAIN IN LEFT KNEE Qualifiers: Chronicity: acute Qualified Code(s): M25.561 - Pain in right knee; M25.562 - Pain in left knee (8) Rotator cuff injury Code(s): S46.009A - UNSP INJ MUSC/TEND THE ROTATOR CUFF OF UNSP SHOULDER, INIT Qualifiers: Encounter type: initial encounter Laterality: right Qualified Code(s): S46.001A - Unspecified injury of muscle(s) and tendon(s) of the rotator cuff of right shoulder, initial encounter r/o uti plan continue abx await cx report watch for fevers and creatinine cbc tomorrow
[2018-07-01] MEDS ORDERED: VANCOMYCIN 1,250 MG in DEXTROSE 5%-WATER - 250 ML IVPB ONE (16:17)
[2018-07-01] MEDS: PRAMIPEXOLE DIHYDROCHLORIDE 0.25 MG TABLET PO SCH (21:53)
[2018-07-01] MEDS: QUEtiapine FUMARATE 25 MG TABLET (FP) PO SCH (21:53)
--- NOTE | 2018-07-01 22:07 | PN ---
Progress Note, Physician Chief Complaint: Pt is better now Better oriented No Fever History of Present Illness: 73 year old female with a PMH significant for Parkinson's disease, CKD, HTN borderline DM, presented to the ED with increased pain and swelling in her right leg with a blister. She reports she has been having swollen legs for the past several months, but it has worsened over the past week. She reports it hurts to stand on her swollen legs. Denies fevers, dizziness, syncope, chest pain, SOB, n/v/d. Improving less confused - Current Medication List Current Medications: Active Medications Acetaminophen (Tylenol -) 500 mg PO Q6H PRN PRN Reason: PAIN LEVEL 1-5 Allopurinol (Zyloprim -) 100 mg PO DAILY [facility] Last Admin: 07/01/18 10:26 Dose: 100 mg Carbidopa/Levodopa (Sinemet *Cr* 50/200 -) 1 combo PO TID@0700,1200,1700 [facility] Last Admin: 07/01/18 17:23 Dose: 1 combo Furosemide (Lasix -) 40 mg PO DAILY [facility] Last Admin: 07/01/18 10:26 Dose: 40 mg Glimepiride (Amaryl -) 1 mg PO DAILY@0700 [facility] Last Admin: 07/01/18 06:25 Dose: 1 mg Heparin Sodium (Porcine) (Heparin -) 5,000 unit SQ BID [facility] Last Admin: 07/01/18 21:53 Dose: 5,000 unit Ceftriaxone Sodium 1 gm/ (Dextrose) 50 mls @ 100 mls/hr IVPB DAILY [facility]; Protocol Last Admin: 07/01/18 10:27 Dose: 100 mls/hr Insulin Aspart (Novolog Vial Sliding Scale -) 1 vial SQ TIDAC [facility]; Protocol Last Admin: 07/01/18 18:14 Dose: Not Given Metoprolol Succinate (Toprol Xl -) 50 mg PO BID [facility] Last Admin: 07/01/18 21:53 Dose: 50 mg Multivitamins/Minerals/Vitamin C (Tab-A-Vit -) 1 tab PO DAILY [facility] Last Admin: 07/01/18 10:26 Dose: 1 tab Potassium Chloride (K-Dur -) 20 meq PO DAILY [facility] Last Admin: 07/01/18 10:27 Dose: 20 meq Pramipexole Dihydrochloride (Mirapex -) 0.25 mg PO HS [facility] Last Admin: 07/01/18 21:53 Dose: 0.25 mg Quetiapine Fumarate (Seroquel -) 12.5 mg PO [facility] Last Admin: 07/01/18 21:53 Dose: 12.5 mg - Objective Vital Signs: Vital Signs Temperature 98.5 F 07/01/18 21:51 Pulse Rate 84 07/01/18 21:51 Respiratory Rate 18 07/01/18 21:51 Blood Pressure 127/78 07/01/18 21:51 O2 Sat by Pulse Oximetry (%) 94 L 06/30/18 09:00 Constitutional: Yes: No Distress Eyes: Yes: Conjunctiva Clear, EOM Intact HENT: Yes: Atraumatic, Normocephalic Neck: Yes: Supple, Trachea Midline Cardiovascular: Yes: Regular Rate and Rhythm, S1, S2 Respiratory: Yes: Regular, CTA Bilaterally Gastrointestinal: Yes: Normal Bowel Sounds, Soft Edema: No Peripheral Pulses WNL: Yes Psychiatric: Yes: Alert Labs: CBC, BMP 07/01/18 10:42 07/01/18 09:42 Problem List - Problems (1) CKD (chronic kidney disease) Code(s): N18.9 - CHRONIC KIDNEY DISEASE, UNSPECIFIED Qualifiers: Chronic kidney disease stage: stage 3 (moderate) Qualified Code(s): N18.3 - Chronic kidney disease, stage 3 (moderate) (2) Cellulitis of lower leg Code(s): L03.119 - CELLULITIS OF UNSPECIFIED PART OF LIMB (3) Leg pain Code(s): M79.606 - PAIN IN LEG, UNSPECIFIED Qualifiers: Laterality: bilateral Qualified Code(s): M79.604 - Pain in right leg; M79.605 - Pain in left leg (4) Parkinsons disease Code(s): G20 - PARKINSON'S DISEASE (5) Peripheral edema Code(s): R60.9 - EDEMA, UNSPECIFIED (6) Gout Code(s): M10.9 - GOUT, UNSPECIFIED Qualifiers: Gout site: knee Gout etiology: unspecified cause Laterality: unspecified laterality (7) Knee pain, bilateral Code(s): M25.561 - PAIN IN RIGHT KNEE; M25.562 - PAIN IN LEFT KNEE Qualifiers: Chronicity: acute Qualified Code(s): M25.561 - Pain in right knee; M25.562 - Pain in left knee (8) Rotator cuff injury Code(s): S46.009A - UNSP INJ MUSC/TEND THE ROTATOR CUFF OF UNSP SHOULDER, INIT Qualifiers: Encounter type: initial encounter Laterality: right Qualified Code(s): S46.001A - Unspecified injury of muscle(s) and tendon(s) of the rotator cuff of right shoulder, initial encounter Assessment/Plan 1) CKD (chronic kidney disease) Code(s): N18.9 - CHRONIC KIDNEY DISEASE, UNSPECIFIED Qualifiers: Chronic kidney disease stage: unspecified stage Qualified Code(s): N18.9 - Chronic kidney disease, unspecified (2) Cellulitis of lower leg Code(s): L03.119 - CELLULITIS OF UNSPECIFIED PART OF LIMB (3) Leg pain Code(s): M79.606 - PAIN IN LEG, UNSPECIFIED Qualifiers: Laterality: bilateral Qualified Code(s): M79.604 - Pain in right leg; M79.605 - Pain in left leg (4) Parkinsons disease Code(s): G20 - PARKINSON'S DISEASE (5) Peripheral edema Code(s): R60.9 - EDEMA, UNSPECIFIED (6) Gout Code(s): M10.9 - GOUT, UNSPECIFIED Qualifiers: Gout site: knee Gout etiology: unspecified cause Laterality: unspecified laterality (7) Knee pain, bilateral Code(s): M25.561 - PAIN IN RIGHT KNEE; M25.562 - PAIN IN LEFT KNEE Qualifiers: Chronicity: acute Qualified Code(s): M25.561 - Pain in right knee (8) Rotator cuff injury Code(s): S46.009A - UNSP INJ MUSC/TEND THE ROTATOR CUFF OF UNSP SHOULDER, INIT Qualifiers: Encounter type: initial encounter Laterality: right Qualified Code(s): S46.001A - Unspecified injury of muscle(s) and tendon(s) of the rotator cuff of right shoulder, initial encounter B/L oedema better cellulitis resolving No Fever Better oriented Improved with Sinamet
[2018-07-02] MEDS: INSULIN SLIDING SCALE (NOVOLOG) 1 VIAL SQ SCH ×3 (06:07→17:08)
[2018-07-02] MEDS: GLIMEPIRIDE 1 MG TABLET (FP) PO SCH (06:09)
[2018-07-02] MEDS ORDERED: PT OWN MED DRAWER 7, Y5N ONE (10:49)
[2018-07-02] MEDS ORDERED: cefTRIAXone SODIUM 1 GM VIAL ONE (10:49)
[2018-07-02] MEDS ORDERED: DEXTROSE 5%-WATER - 50 ML IVPB ONE (10:50)
[2018-07-02] MEDS: CEFTRIAXONE 1 GM in DEXTROSE 5%-WATER - 50 ML IVPB SCH (10:56)
[2018-07-02] MEDS: POTASSIUM CHLORIDE TABS 20 MEQ TABLET.ER (FP) PO SCH (10:56)
[2018-07-02] MEDS: ALLOPURINOL 100 MG TABLET (FP) PO SCH (10:56)
[2018-07-02] MEDS: FUROSEMIDE 40 MG TABLET (FP) PO SCH (10:56)
[2018-07-02] MEDS: HEPARIN NA (PORCINE) 5,000 UNITS/ML 1ML VIAL SQ SCH ×2 (10:56→21:37)
[2018-07-02] MEDS: MULTIVITAMINS (DAILY MVI) TABLET (FP) PO SCH (10:56)
--- NOTE | 2018-07-02 12:56 | PN ---
Progress Note, Physician History of Present Illness: Pt seen and examined, events reviewed. She is alert and fully responsive. As per son at bedside her mental status has improved somewhat but still with periods of confusion. Pt states LE pain has improved. - Current Medication List Current Medications: Active Medications Acetaminophen (Tylenol -) 500 mg PO Q6H PRN PRN Reason: PAIN LEVEL 1-5 Allopurinol (Zyloprim -) 100 mg PO DAILY [facility] Last Admin: 07/02/18 10:56 Dose: 100 mg Carbidopa/Levodopa (Sinemet *Cr* 50/200 -) 1 combo PO TID@0700,1200,1700 [facility] Last Admin: 07/02/18 12:37 Dose: 1 combo Furosemide (Lasix -) 40 mg PO DAILY [facility] Last Admin: 07/02/18 10:56 Dose: 40 mg Glimepiride (Amaryl -) 1 mg PO DAILY@0700 [facility] Last Admin: 07/02/18 06:09 Dose: 1 mg Heparin Sodium (Porcine) (Heparin -) 5,000 unit SQ BID [facility] Last Admin: 07/02/18 10:56 Dose: 5,000 unit Ceftriaxone Sodium 1 gm/ (Dextrose) 50 mls @ 100 mls/hr IVPB DAILY [facility]; Protocol Last Admin: 07/02/18 10:56 Dose: 100 mls/hr Insulin Aspart (Novolog Vial Sliding Scale -) 1 vial SQ TIDAC [facility]; Protocol Last Admin: 07/02/18 12:36 Dose: 6 units Metoprolol Succinate (Toprol Xl -) 50 mg PO BID [facility] Last Admin: 07/02/18 10:56 Dose: 50 mg Multivitamins/Minerals/Vitamin C (Tab-A-Vit -) 1 tab PO DAILY [facility] Last Admin: 07/02/18 10:56 Dose: 1 tab Potassium Chloride (K-Dur -) 20 meq PO DAILY [facility] Last Admin: 07/02/18 10:56 Dose: 20 meq Pramipexole Dihydrochloride (Mirapex -) 0.25 mg PO HS [facility] Last Admin: 07/01/18 21:53 Dose: 0.25 mg Quetiapine Fumarate (Seroquel -) 12.5 mg PO HS [facility] Last Admin: 07/01/18 21:53 Dose: 12.5 mg - Objective Vital Signs: Vital Signs Temperature 97.9 F 07/02/18 10:55 Pulse Rate 84 07/02/18 10:55 Respiratory Rate 19 07/02/18 10:55 Blood Pressure 136/86 07/02/18 10:55 O2 Sat by Pulse Oximetry (%) 94 L 06/30/18 09:00 Constitutional: Yes: No Distress, Calm HENT: Yes: Atraumatic Neck: Yes: Supple Cardiovascular: Yes: Regular Rate and Rhythm Respiratory: Yes: Regular Gastrointestinal: Yes: Normal Bowel Sounds, Soft Extremities: Yes: Erythema (improved, no bullae, less tender) Neurological: Yes: Alert, Tremors Labs: CBC, BMP 07/01/18 10:42 07/01/18 09:42 Microbiology 06/27/18 18:12 Blood - Peripheral Venous Blood Culture - Preliminary Staphylococcus Coagulase Neg 06/27/18 18:30 Blood - Peripheral Venous Blood Culture - Preliminary NO GROWTH OBTAINED AFTER 96 HOURS, INCUBATION TO CONTINUE FOR 1 DAYS. 06/29/18 18:30 Urine - Urine - Catheterized Urine Culture - Final NO GROWTH OBTAINED Problem List - Problems (1) CKD (chronic kidney disease) Code(s): N18.9 - CHRONIC KIDNEY DISEASE, UNSPECIFIED Qualifiers: Chronic kidney disease stage: stage 3 (moderate) Qualified Code(s): N18.3 - Chronic kidney disease, stage 3 (moderate) (2) Cellulitis of lower leg Code(s): L03.119 - CELLULITIS OF UNSPECIFIED PART OF LIMB (3) Leg pain Code(s): M79.606 - PAIN IN LEG, UNSPECIFIED Qualifiers: Laterality: bilateral Qualified Code(s): M79.604 - Pain in right leg; M79.605 - Pain in left leg (4) Parkinsons disease Code(s): G20 - PARKINSON'S DISEASE Assessment/Plan LE cellulitis Parkinsons AMS -- fever/leukocytosis resolved -- initial blood cultures likely contaminated, repeat with no growth -- Urine culture neg -- if cellulitis continues to improve will switch to oral antibiotics -- Neurology following
--- NOTE | 2018-07-02 14:08 | PN ---
Progress Note, Physician History of Present Illness: LE edema and erythema resolved with diuresis and empiric abx for cellulitis. Denies chest pain or dyspnea. - Current Medication List Current Medications: Active Medications Acetaminophen (Tylenol -) 500 mg PO Q6H PRN PRN Reason: PAIN LEVEL 1-5 Allopurinol (Zyloprim -) 100 mg PO DAILY [facility] Last Admin: 07/02/18 10:56 Dose: 100 mg Carbidopa/Levodopa (Sinemet *Cr* 50/200 -) 1 combo PO TID@0700,1200,1700 [facility] Last Admin: 07/02/18 12:37 Dose: 1 combo Furosemide (Lasix -) 40 mg PO DAILY [facility] Last Admin: 07/02/18 10:56 Dose: 40 mg Glimepiride (Amaryl -) 1 mg PO DAILY@0700 [facility] Last Admin: 07/02/18 06:09 Dose: 1 mg Heparin Sodium (Porcine) (Heparin -) 5,000 unit SQ BID [facility] Last Admin: 07/02/18 10:56 Dose: 5,000 unit Ceftriaxone Sodium 1 gm/ (Dextrose) 50 mls @ 100 mls/hr IVPB DAILY [facility]; Protocol Last Admin: 07/02/18 10:56 Dose: 100 mls/hr Insulin Aspart (Novolog Vial Sliding Scale -) 1 vial SQ TIDAC [facility]; Protocol Last Admin: 07/02/18 12:36 Dose: 6 units Metoprolol Succinate (Toprol Xl -) 50 mg PO BID [facility] Last Admin: 07/02/18 10:56 Dose: 50 mg Multivitamins/Minerals/Vitamin C (Tab-A-Vit -) 1 tab PO DAILY [facility] Last Admin: 07/02/18 10:56 Dose: 1 tab Potassium Chloride (K-Dur -) 20 meq PO DAILY [facility] Last Admin: 07/02/18 10:56 Dose: 20 meq Pramipexole Dihydrochloride (Mirapex -) 0.25 mg PO HS [facility] Last Admin: 07/01/18 21:53 Dose: 0.25 mg Quetiapine Fumarate (Seroquel -) 12.5 mg PO HS [facility] Last Admin: 07/01/18 21:53 Dose: 12.5 mg - Objective Vital Signs: Vital Signs Temperature 97.9 F 07/02/18 10:55 Pulse Rate 84 07/02/18 10:55 Respiratory Rate 19 12/22/18 10:55 Blood Pressure 136/86 07/02/18 10:55 O2 Sat by Pulse Oximetry (%) 94 L 06/30/18 09:00 Constitutional: Yes: No Distress, Calm Neck: Yes: Supple Cardiovascular: Yes: Regular Rate and Rhythm Respiratory: Yes: Regular, Diminished Gastrointestinal: Yes: Normal Bowel Sounds, Soft Edema: No Labs: CBC, BMP 07/01/18 10:42 07/01/18 09:42 Problem List - Problems (1) Hypertensive cardiomyopathy Code(s): I11.9 - HYPERTENSIVE HEART DISEASE WITHOUT HEART FAILURE; I43 - CARDIOMYOPATHY IN DISEASES CLASSIFIED ELSEWHERE Qualifiers: Heart failure presence: without heart failure Qualified Code(s): I11.9 - Hypertensive heart disease without heart failure; I43 - Cardiomyopathy in diseases classified elsewhere (2) Diastolic dysfunction Code(s): I51.9 - HEART DISEASE, UNSPECIFIED (3) CKD (chronic kidney disease) Code(s): N18.9 - CHRONIC KIDNEY DISEASE, UNSPECIFIED Qualifiers: Chronic kidney disease stage: stage 3 (moderate) Qualified Code(s): N18.3 - Chronic kidney disease, stage 3 (moderate) (4) Parkinsons disease Code(s): G20 - PARKINSON'S DISEASE (5) Peripheral edema Code(s): R60.9 - EDEMA, UNSPECIFIED Assessment/Plan 09/17/17 Echo: Normal LV size and fxn, mod TR, tr-mild TR 1. LE swelling and erythema possible cellulitis resolving, ruled out for DVT 2. CKD Stage 3 (baseline Cr 1.5) 3. Hypertensive cardiomyopathy 4. 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 Type 2 DM P:1. Oral diuresis with monitor diuretic response, renal fxn and electrolytes 2. Continue Toprol XL 50 bid, add losartan 25 qd as renal fxn stabilizes 3. Complete oral empiric abx course 4. PD and RLS meds per neuro 5. DVT prophylaxis
--- NOTE | 2018-07-02 18:12 | PN ---
Progress Note (short form) - Note Progress Note: NEUROLOGY PROGRESS: Events reviewed and discussed with RN and patient's son, Jose Alfredo, at the bedside. Better oriented today but hallucinating "Bunnies outside" and the presence of her other son, Justin, in the room. Still on Ceftriaxone for cellulitis. Leg pain improved on low-dose pramipexole. Sleeping well. EXAM: Awake, alert, Ox 3. Recalls 2 of 3 but is confused. Swallowing solid food without difficulty. Masked facies. Gag OK Intermittent Rest tremor. + Cogwheel rigidity. IMP: Parkinson's disease Mod. OMS Parkinson's disease Psychosis PD-Related RLS Suggest: Increase seroquel to 12.5 in AM and 25 in PM Cont Sinemet CR 50/200 TID at 7, 12, and 5 Cont pramipexole .25 HS Stop antibiotics as soon as possible Mobilize patient OO Bed to chair Pt will likely need short-term rehab placement in SNF. Thank you very much, Garry Islas MD
[2018-07-02] MEDS: QUEtiapine FUMARATE 25 MG TABLET (FP) PO SCH (21:37)
[2018-07-02] MEDS: PRAMIPEXOLE DIHYDROCHLORIDE 0.25 MG TABLET PO SCH (21:37)
--- NOTE | 2018-07-02 23:06 | PN ---
Progress Note, Physician Chief Complaint: Pt is better now Better oriented but confused at times No Fever History of Present Illness: 73 year old female with a PMH significant for Parkinson's disease, CKD, HTN borderline DM, presented to the ED with increased pain and swelling in her right leg with a blister. She reports she has been having swollen legs for the past several months, but it has worsened over the past week. She reports it hurts to stand on her swollen legs. Denies fevers, dizziness, syncope, chest pain, SOB, n/v/d. Improving confused intermittently - Current Medication List Current Medications: Active Medications Acetaminophen (Tylenol -) 500 mg PO Q6H PRN PRN Reason: PAIN LEVEL 1-5 Allopurinol (Zyloprim -) 100 mg PO DAILY [facility] Last Admin: 07/02/18 10:56 Dose: 100 mg Carbidopa/Levodopa (Sinemet *Cr* 50/200 -) 1 combo PO TID@0700,1200,1700 [facility] Last Admin: 07/02/18 17:07 Dose: 1 combo Furosemide (Lasix -) 40 mg PO DAILY [facility] Last Admin: 07/02/18 10:56 Dose: 40 mg Glimepiride (Amaryl -) 1 mg PO DAILY@0700 [facility] Last Admin: 07/02/18 06:09 Dose: 1 mg Heparin Sodium (Porcine) (Heparin -) 5,000 unit SQ BID [facility] Last Admin: 07/02/18 21:37 Dose: 5,000 unit Ceftriaxone Sodium 1 gm/ (Dextrose) 50 mls @ 100 mls/hr IVPB DAILY [facility]; Protocol Last Admin: 07/02/18 10:56 Dose: 100 mls/hr Insulin Aspart (Novolog Vial Sliding Scale -) 1 vial SQ TIDAC [facility]; Protocol Last Admin: 07/02/18 17:08 Dose: 2 units Metoprolol Succinate (Toprol Xl -) 50 mg PO BID [facility] Last Admin: 07/02/18 21:37 Dose: 50 mg Multivitamins/Minerals/Vitamin C (Tab-A-Vit -) 1 tab PO DAILY [facility] Last Admin: 07/02/18 10:56 Dose: 1 tab Potassium Chloride (K-Dur -) 20 meq PO DAILY [facility] Last Admin: 07/02/18 10:56 Dose: 20 meq Pramipexole Dihydrochloride (Mirapex -) 0.25 mg PO HS [facility] Last Admin: 07/02/18 21:37 Dose: 0.25 mg Quetiapine Fumarate (Seroquel -) 12.5 mg PO DAILY [facility] Quetiapine Fumarate (Seroquel -) 25 mg PO HS [facility] Last Admin: 07/02/18 21:37 Dose: 25 mg - Objective Vital Signs: Vital Signs Temperature 98.5 F 07/02/18 21:00 Pulse Rate 96 H 07/02/18 21:00 Respiratory Rate 20 07/02/18 21:00 Blood Pressure 146/76 07/02/18 21:00 O2 Sat by Pulse Oximetry (%) 94 L 06/30/18 09:00 Constitutional: Yes: No Distress Eyes: Yes: Conjunctiva Clear, EOM Intact HENT: Yes: Atraumatic, Normocephalic Cardiovascular: Yes: Regular Rate and Rhythm, S1, S2 Respiratory: Yes: Regular, CTA Bilaterally Gastrointestinal: Yes: Normal Bowel Sounds, Soft Musculoskeletal: Yes: Joint Stiffness Edema: No Neurological: Yes: Alert, Cran Nerves II-XII Intact Labs: CBC, BMP 07/01/18 10:42 07/01/18 09:42 Problem List - Problems (1) CKD (chronic kidney disease) Code(s): N18.9 - CHRONIC KIDNEY DISEASE, UNSPECIFIED Qualifiers: Chronic kidney disease stage: stage 3 (moderate) Qualified Code(s): N18.3 - Chronic kidney disease, stage 3 (moderate) (2) Cellulitis of lower leg Code(s): L03.119 - CELLULITIS OF UNSPECIFIED PART OF LIMB (3) Leg pain Code(s): M79.606 - PAIN IN LEG, UNSPECIFIED Qualifiers: Laterality: bilateral Qualified Code(s): M79.604 - Pain in right leg; M79.605 - Pain in left leg (4) Parkinsons disease Code(s): G20 - PARKINSON'S DISEASE (5) Peripheral edema Code(s): R60.9 - EDEMA, UNSPECIFIED (6) Gout Code(s): M10.9 - GOUT, UNSPECIFIED Qualifiers: Gout site: knee Gout etiology: unspecified cause Laterality: unspecified laterality (7) Knee pain, bilateral Code(s): M25.561 - PAIN IN RIGHT KNEE; M25.562 - PAIN IN LEFT KNEE Qualifiers: Chronicity: acute Qualified Code(s): M25.561 - Pain in right knee; M25.562 - Pain in left knee (8) Rotator cuff injury Code(s): S46.009A - UNSP INJ MUSC/TEND THE ROTATOR CUFF OF UNSP SHOULDER, INIT Qualifiers: Encounter type: initial encounter Laterality: right Qualified Code(s): S46.001A - Unspecified injury of muscle(s) and tendon(s) of the rotator cuff of right shoulder, initial encounter Assessment/Plan 1) CKD (chronic kidney disease) Code(s): N18.9 - CHRONIC KIDNEY DISEASE, UNSPECIFIED Qualifiers: Chronic kidney disease stage: unspecified stage Qualified Code(s): N18.9 - Chronic kidney disease, unspecified (2) Cellulitis of lower leg Code(s): L03.119 - CELLULITIS OF UNSPECIFIED PART OF LIMB (3) Leg pain Code(s): M79.606 - PAIN IN LEG, UNSPECIFIED Qualifiers: Laterality: bilateral Qualified Code(s): M79.604 - Pain in right leg; M79.605 - Pain in left leg (4) Parkinsons disease Code(s): G20 - PARKINSON'S DISEASE (5) Peripheral edema Code(s): R60.9 - EDEMA, UNSPECIFIED (6) Gout Code(s): M10.9 - GOUT, UNSPECIFIED Qualifiers: Gout site: knee Gout etiology: unspecified cause Laterality: unspecified laterality (7) Knee pain, bilateral Code(s): M25.561 - PAIN IN RIGHT KNEE; M25.562 - PAIN IN LEFT KNEE Qualifiers: Chronicity: acute Qualified Code(s): M25.561 - Pain in right knee (8) Rotator cuff injury Code(s): S46.009A - UNSP INJ MUSC/TEND THE ROTATOR CUFF OF UNSP SHOULDER, INIT Qualifiers: Encounter type: initial encounter Laterality: right Qualified Code(s): S46.001A - Unspecified injury of muscle(s) and tendon(s) of the rotator cuff of right shoulder, initial encounter B/L oedema better cellulitis resolving No Fever Better oriented Improved with Sinamet confused today Had a meeting with Pt needs STR
--- NOTE | 2018-07-02 23:22 | PN ---
Progress Note (short form) - Note Progress Note: covering dr vladivia problems 73 year old woman with hx of CKD, Parkinsons, DM, Hypertension presented with LE swelling and blister. #CKD Stage 3 (baseline Cr 1.5) #LE swelling and erythema r/o cellulitis #Parkinson's Disease #Mild Hypokalemia Current Medications Acetaminophen (Tylenol -) 500 mg PO Q6H PRN PRN Reason: PAIN LEVEL 1-5 Allopurinol (Zyloprim -) 100 mg PO DAILY [facility] Last Admin: 07/02/18 10:56 Dose: 100 mg Carbidopa/Levodopa (Sinemet *Cr* 50/200 -) 1 combo PO TID@0700,1200,1700 [facility] Last Admin: 07/02/18 17:07 Dose: 1 combo Furosemide (Lasix -) 40 mg PO DAILY [facility] Last Admin: 07/02/18 10:56 Dose: 40 mg Glimepiride (Amaryl -) 1 mg PO DAILY@0700 [facility] Last Admin: 07/02/18 06:09 Dose: 1 mg Heparin Sodium (Porcine) (Heparin -) 5,000 unit SQ BID [facility] Last Admin: 07/02/18 21:37 Dose: 5,000 unit Ceftriaxone Sodium 1 gm/ (Dextrose) 50 mls @ 100 mls/hr IVPB DAILY [facility]; Protocol Last Admin: 07/02/18 10:56 Dose: 100 mls/hr Insulin Aspart (Novolog Vial Sliding Scale -) 1 vial SQ TIDAC [facility]; Protocol Last Admin: 07/02/18 17:08 Dose: 2 units Metoprolol Succinate (Toprol Xl -) 50 mg PO BID [facility] Last Admin: 07/02/18 21:37 Dose: 50 mg Multivitamins/Minerals/Vitamin C (Tab-A-Vit -) 1 tab PO DAILY [facility] Last Admin: 07/02/18 10:56 Dose: 1 tab Potassium Chloride (K-Dur -) 20 meq PO DAILY [facility] Last Admin: 07/02/18 10:56 Dose: 20 meq Pramipexole Dihydrochloride (Mirapex -) 0.25 mg PO HS [facility] Last Admin: 07/02/18 21:37 Dose: 0.25 mg Quetiapine Fumarate (Seroquel -) 12.5 mg PO DAILY [facility] Quetiapine Fumarate (Seroquel -) 25 mg PO HS [facility] Last Admin: 1222/18 21:37 Dose: 25 mg Last Vital Signs Temp Pulse Resp BP Pulse Ox 98.5 F 96 H 20 146/76 94 L 07/02/18 21:00 07/02/18 21:00 07/02/18 21:00 07/02/18 21:00 06/30/18 09:00 CBC, BMP 07/01/18 10:42 07/01/18 09:42 Renal function at baseline continue PO lasix daily continue oral KCL dily management of Parkinson meds as per neurology convert Abx to oral when ok with ID Discharge planning as per primary signed off please call with any questions or concerns
[2018-07-03] MEDS: INSULIN SLIDING SCALE (NOVOLOG) 1 VIAL SQ SCH ×3 (06:50→17:04)
[2018-07-03] MEDS: GLIMEPIRIDE 1 MG TABLET (FP) PO SCH (06:50)
[2018-07-03] MEDS ORDERED: DEXTROSE 5%-WATER - 50 ML IVPB ONE (10:17)
[2018-07-03] MEDS ORDERED: cefTRIAXone SODIUM 1 GM VIAL ONE (10:17)
[2018-07-03] MEDS: MULTIVITAMINS (DAILY MVI) TABLET (FP) PO SCH (10:21)
[2018-07-03] MEDS: CEFTRIAXONE 1 GM in DEXTROSE 5%-WATER - 50 ML IVPB SCH (10:21)
[2018-07-03] MEDS: ALLOPURINOL 100 MG TABLET (FP) PO SCH (10:21)
[2018-07-03] MEDS: QUEtiapine FUMARATE 25 MG TABLET (FP) PO SCH ×2 (10:21→21:33)
[2018-07-03] MEDS: FUROSEMIDE 40 MG TABLET (FP) PO SCH (10:21)
[2018-07-03] MEDS: HEPARIN NA (PORCINE) 5,000 UNITS/ML 1ML VIAL SQ SCH ×2 (10:21→21:33)
[2018-07-03] MEDS: POTASSIUM CHLORIDE TABS 20 MEQ TABLET.ER (FP) PO SCH (10:21)
--- NOTE | 2018-07-03 12:06 | PN ---
Progress Note, Physician History of Present Illness: Pt still with confusion/hallucinations. b/l feet erythema persists but improved. Remains afebrile. - Current Medication List Current Medications: Active Medications Acetaminophen (Tylenol -) 500 mg PO Q6H PRN PRN Reason: PAIN LEVEL 1-5 Allopurinol (Zyloprim -) 100 mg PO DAILY [facility] Last Admin: 07/03/18 10:21 Dose: 100 mg Carbidopa/Levodopa (Sinemet *Cr* 50/200 -) 1 combo PO TID@0700,1200,1700 [facility] Last Admin: 07/03/18 06:50 Dose: 1 combo Cephalexin HCl (Keflex -) 500 mg PO BID [facility] Furosemide (Lasix -) 40 mg PO DAILY [facility] Last Admin: 07/03/18 10:21 Dose: 40 mg Glimepiride (Amaryl -) 1 mg PO DAILY@0700 [facility] Last Admin: 07/03/18 06:50 Dose: 1 mg Heparin Sodium (Porcine) (Heparin -) 5,000 unit SQ BID [facility] Last Admin: 07/03/18 10:21 Dose: 5,000 unit Insulin Aspart (Novolog Vial Sliding Scale -) 1 vial SQ TIDAC [facility]; Protocol Last Admin: 07/03/18 06:50 Dose: 2 units Metoprolol Succinate (Toprol Xl -) 50 mg PO BID [facility] Last Admin: 07/03/18 10:21 Dose: 50 mg Multivitamins/Minerals/Vitamin C (Tab-A-Vit -) 1 tab PO DAILY [facility] Last Admin: 07/03/18 10:21 Dose: 1 tab Potassium Chloride (K-Dur -) 20 meq PO DAILY [facility] Last Admin: 07/03/18 10:21 Dose: 20 meq Pramipexole Dihydrochloride (Mirapex -) 0.25 mg PO HS [facility] Last Admin: 07/02/18 21:37 Dose: 0.25 mg Quetiapine Fumarate (Seroquel -) 12.5 mg PO DAILY [facility] Last Admin: 07/03/18 10:21 Dose: 12.5 mg Quetiapine Fumarate (Seroquel -) 25 mg PO HS [facility] Last Admin: 07/02/18 21:37 Dose: 25 mg - Objective Vital Signs: Vital Signs Temperature 98.6 F 07/03/18 10:29 Pulse Rate 83 07/03/18 10:29 Respiratory Rate 19 07/03/18 10:29 Blood Pressure 126/67 07/03/18 10:29 O2 Sat by Pulse Oximetry (%) 94 L 06/30/18 09:00 Constitutional: Yes: No Distress Cardiovascular: Yes: Regular Rate and Rhythm Respiratory: Yes: Regular Gastrointestinal: Yes: Normal Bowel Sounds, Soft Extremities: Yes: Erythema (b/l feet erythema less) Neurological: Yes: Confusion, Weakness Labs: CBC, BMP 07/01/18 10:42 07/01/18 09:42 Problem List - Problems (1) CKD (chronic kidney disease) Code(s): N18.9 - CHRONIC KIDNEY DISEASE, UNSPECIFIED Qualifiers: Chronic kidney disease stage: stage 3 (moderate) Qualified Code(s): N18.3 - Chronic kidney disease, stage 3 (moderate) (2) Cellulitis of lower leg Code(s): L03.119 - CELLULITIS OF UNSPECIFIED PART OF LIMB (3) Leg pain Code(s): M79.606 - PAIN IN LEG, UNSPECIFIED Qualifiers: Laterality: bilateral Qualified Code(s): M79.604 - Pain in right leg; M79.605 - Pain in left leg (4) Parkinsons disease Code(s): G20 - PARKINSON'S DISEASE Assessment/Plan LE cellulitis Parkinsons AMS -- still with mild feet erythema, improving --will d/c ceftriaxone, switch to keflex -- Neurology following
--- NOTE | 2018-07-03 12:28 | PN ---
Progress Note, Physician Chief Complaint: Pt is better now Better oriented but confused at times at the bedside History of Present Illness: 73 year old female with a PMH significant for Parkinson's disease, CKD, HTN borderline DM, presented to the ED with increased pain and swelling in her right leg with a blister. She reports she has been having swollen legs for the past several months, but it has worsened over the past week. She reports it hurts to stand on her swollen legs. Denies fevers, dizziness, syncope, chest pain, SOB, n/v/d. Improving confused intermittently Pt will be going for STR - Current Medication List Current Medications: Active Medications Acetaminophen (Tylenol -) 500 mg PO Q6H PRN PRN Reason: PAIN LEVEL 1-5 Allopurinol (Zyloprim -) 100 mg PO DAILY [facility] Last Admin: 07/03/18 10:21 Dose: 100 mg Carbidopa/Levodopa (Sinemet *Cr* 50/200 -) 1 combo PO TID@0700,1200,1700 [facility] Last Admin: 07/03/18 06:50 Dose: 1 combo Cephalexin HCl (Keflex -) 500 mg PO BID [facility] Furosemide (Lasix -) 40 mg PO DAILY [facility] Last Admin: 07/03/18 10:21 Dose: 40 mg Glimepiride (Amaryl -) 1 mg PO DAILY@0700 [facility] Last Admin: 07/03/18 06:50 Dose: 1 mg Heparin Sodium (Porcine) (Heparin -) 5,000 unit SQ BID [facility] Last Admin: 07/03/18 10:21 Dose: 5,000 unit Insulin Aspart (Novolog Vial Sliding Scale -) 1 vial SQ TIDAC [facility]; Protocol Last Admin: 07/03/18 12:26 Dose: 2 units Metoprolol Succinate (Toprol Xl -) 50 mg PO BID [facility] Last Admin: 07/03/18 10:21 Dose: 50 mg Multivitamins/Minerals/Vitamin C (Tab-A-Vit -) 1 tab PO DAILY [facility] Last Admin: 07/03/18 10:21 Dose: 1 tab Potassium Chloride (K-Dur -) 20 meq PO DAILY [facility] Last Admin: 07/03/18 10:21 Dose: 20 meq Pramipexole Dihydrochloride (Mirapex -) 0.25 mg PO HS [facility] Last Admin: 07/02/18 21:37 Dose: 0.25 mg Quetiapine Fumarate (Seroquel -) 12.5 mg PO DAILY [facility] Last Admin: 07/03/18 10:21 Dose: 12.5 mg Quetiapine Fumarate (Seroquel -) 25 mg PO HS [facility] Last Admin: 07/02/18 21:37 Dose: 25 mg - Objective Vital Signs: Vital Signs Temperature 98.6 F 07/03/18 10:29 Pulse Rate 83 07/03/18 10:29 Respiratory Rate 19 07/03/18 10:29 Blood Pressure 126/67 07/03/18 10:29 O2 Sat by Pulse Oximetry (%) 94 L 06/30/18 09:00 Constitutional: Yes: Anxious Eyes: Yes: Conjunctiva Clear, EOM Intact HENT: Yes: Atraumatic, Normocephalic Neck: Yes: Supple, Trachea Midline Cardiovascular: Yes: Regular Rate and Rhythm, S1, S2 Respiratory: Yes: Regular, CTA Bilaterally Gastrointestinal: Yes: Normal Bowel Sounds, Soft Edema: No Neurological: Yes: Alert, Cran Nerves II-XII Intact Labs: CBC, BMP 07/01/18 10:42 07/01/18 09:42 Problem List - Problems (1) CKD (chronic kidney disease) Code(s): N18.9 - CHRONIC KIDNEY DISEASE, UNSPECIFIED Qualifiers: Chronic kidney disease stage: stage 3 (moderate) Qualified Code(s): N18.3 - Chronic kidney disease, stage 3 (moderate) (2) Cellulitis of lower leg Code(s): L03.119 - CELLULITIS OF UNSPECIFIED PART OF LIMB (3) Leg pain Code(s): M79.606 - PAIN IN LEG, UNSPECIFIED Qualifiers: Laterality: bilateral Qualified Code(s): M79.604 - Pain in right leg; M79.605 - Pain in left leg (4) Parkinsons disease Code(s): G20 - PARKINSON'S DISEASE (5) Peripheral edema Code(s): R60.9 - EDEMA, UNSPECIFIED (6) Gout Code(s): M10.9 - GOUT, UNSPECIFIED Qualifiers: Gout site: knee Gout etiology: unspecified cause Laterality: unspecified laterality (7) Knee pain, bilateral Code(s): M25.561 - PAIN IN RIGHT KNEE; M25.562 - PAIN IN LEFT KNEE Qualifiers: Chronicity: acute Qualified Code(s): M25.561 - Pain in right knee; M25.562 - Pain in left knee (8) Rotator cuff injury Code(s): S46.009A - UNSP INJ MUSC/TEND THE ROTATOR CUFF OF UNSP SHOULDER, INIT Qualifiers: Encounter type: initial encounter Laterality: right Qualified Code(s): S46.001A - Unspecified injury of muscle(s) and tendon(s) of the rotator cuff of right shoulder, initial encounter Assessment/Plan 1) CKD (chronic kidney disease) Code(s): N18.9 - CHRONIC KIDNEY DISEASE, UNSPECIFIED Qualifiers: Chronic kidney disease stage: unspecified stage Qualified Code(s): N18.9 - Chronic kidney disease, unspecified (2) Cellulitis of lower leg Code(s): L03.119 - CELLULITIS OF UNSPECIFIED PART OF LIMB (3) Leg pain Code(s): M79.606 - PAIN IN LEG, UNSPECIFIED Qualifiers: Laterality: bilateral Qualified Code(s): M79.604 - Pain in right leg; M79.605 - Pain in left leg (4) Parkinsons disease Code(s): G20 - PARKINSON'S DISEASE (5) Peripheral edema Code(s): R60.9 - EDEMA, UNSPECIFIED (6) Gout Code(s): M10.9 - GOUT, UNSPECIFIED Qualifiers: Gout site: knee Gout etiology: unspecified cause Laterality: unspecified laterality (7) Knee pain, bilateral Code(s): M25.561 - PAIN IN RIGHT KNEE; M25.562 - PAIN IN LEFT KNEE Qualifiers: Chronicity: acute Qualified Code(s): M25.561 - Pain in right knee (8) Rotator cuff injury Code(s): S46.009A - UNSP INJ MUSC/TEND THE ROTATOR CUFF OF UNSP SHOULDER, INIT Qualifiers: Encounter type: initial encounter Laterality: right Qualified Code(s): S46.001A - Unspecified injury of muscle(s) and tendon(s) of the rotator cuff of right shoulder, initial encounter B/L oedema better cellulitis resolving No Fever Better oriented Improved with Sinamet Spoke with at bedside Pt will go to [facility] Had a meeting with Pt needs STR
[2018-07-03] MEDS ORDERED: PT OWN MED DRAWER 7, Y5N ONE (12:30)
--- NOTE | 2018-07-03 14:20 | PN ---
Progress Note, Physician History of Present Illness: LE edema and erythema resolved with diuresis and empiric abx for cellulitis. Denies chest pain or dyspnea. - Current Medication List Current Medications: Active Medications Acetaminophen (Tylenol -) 500 mg PO Q6H PRN PRN Reason: PAIN LEVEL 1-5 Allopurinol (Zyloprim -) 100 mg PO DAILY [facility] Last Admin: 07/03/18 10:21 Dose: 100 mg Carbidopa/Levodopa (Sinemet *Cr* 50/200 -) 1 combo PO TID@0700,1200,1700 [facility] Last Admin: 07/03/18 12:55 Dose: 1 combo Cephalexin HCl (Keflex -) 500 mg PO BID [facility] Furosemide (Lasix -) 40 mg PO DAILY [facility] Last Admin: 07/03/18 10:21 Dose: 40 mg Glimepiride (Amaryl -) 1 mg PO DAILY@0700 [facility] Last Admin: 07/03/18 06:50 Dose: 1 mg Heparin Sodium (Porcine) (Heparin -) 5,000 unit SQ BID [facility] Last Admin: 07/03/18 10:21 Dose: 5,000 unit Insulin Aspart (Novolog Vial Sliding Scale -) 1 vial SQ TIDAC [facility]; Protocol Last Admin: 07/03/18 12:26 Dose: 2 units Metoprolol Succinate (Toprol Xl -) 50 mg PO BID [facility] Last Admin: 07/03/18 10:21 Dose: 50 mg Multivitamins/Minerals/Vitamin C (Tab-A-Vit -) 1 tab PO DAILY [facility] Last Admin: 07/03/18 10:21 Dose: 1 tab Pantoprazole Sodium (Protonix -) 40 mg PO BID [facility] Potassium Chloride (K-Dur -) 20 meq PO DAILY [facility] Last Admin: 07/03/18 10:21 Dose: 20 meq Pramipexole Dihydrochloride (Mirapex -) 0.25 mg PO [facility] Last Admin: 07/02/18 21:37 Dose: 0.25 mg Quetiapine Fumarate (Seroquel -) 12.5 mg PO DAILY [facility] Last Admin: 07/03/18 10:21 Dose: 12.5 mg Quetiapine Fumarate (Seroquel -) 25 mg PO HS [facility] Last Admin: 07/02/18 21:37 Dose: 25 mg - Objective Vital Signs: Vital Signs Temperature 98.6 F 07/03/18 10:29 Pulse Rate 83 07/03/18 10:29 Respiratory Rate 19 07/03/18 10:29 Blood Pressure 126/67 07/03/18 10:29 O2 Sat by Pulse Oximetry (%) 96 07/03/18 09:00 Constitutional: Yes: No Distress, Calm Neck: Yes: Supple Cardiovascular: Yes: Regular Rate and Rhythm Respiratory: Yes: Regular, Diminished, On Nasal O2 Gastrointestinal: Yes: Normal Bowel Sounds, Soft Edema: No Labs: CBC, BMP 07/01/18 10:42 07/01/18 09:42 Problem List - Problems (1) Hypertensive cardiomyopathy Code(s): I11.9 - HYPERTENSIVE HEART DISEASE WITHOUT HEART FAILURE; I43 - CARDIOMYOPATHY IN DISEASES CLASSIFIED ELSEWHERE Qualifiers: Heart failure presence: without heart failure Qualified Code(s): I11.9 - Hypertensive heart disease without heart failure; I43 - Cardiomyopathy in diseases classified elsewhere (2) Diastolic dysfunction Code(s): I51.9 - HEART DISEASE, UNSPECIFIED (3) CKD (chronic kidney disease) Code(s): N18.9 - CHRONIC KIDNEY DISEASE, UNSPECIFIED Qualifiers: Chronic kidney disease stage: stage 3 (moderate) Qualified Code(s): N18.3 - Chronic kidney disease, stage 3 (moderate) (4) Parkinsons disease Code(s): G20 - PARKINSON'S DISEASE (5) Peripheral edema Code(s): R60.9 - EDEMA, UNSPECIFIED Assessment/Plan 09/17/17 Echo: Normal LV size and fxn, mod TR, tr-mild TR 1. LE swelling and erythema possible cellulitis resolving, ruled out for DVT 2. CKD Stage 3 (baseline Cr 1.5) 3. Hypertensive cardiomyopathy 4. 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 Type 2 DM P:1. Oral diuresis with monitor diuretic response, renal fxn and electrolytes 2. Continue Toprol XL 50 bid, add losartan 25 qd as renal fxn stabilizes 3. Complete oral empiric abx course 4. PD and RLS meds per neuro 5. DVT prophylaxis
[2018-07-03] MEDS: PANTOPRAZOLE 40 MG TABLET (FP) PO SCH (21:32)
[2018-07-03] MEDS: PRAMIPEXOLE DIHYDROCHLORIDE 0.25 MG TABLET PO SCH (21:33)
[2018-07-04] MEDS: INSULIN SLIDING SCALE (NOVOLOG) 1 VIAL SQ SCH ×3 (06:18→17:35)
[2018-07-04] MEDS: GLIMEPIRIDE 1 MG TABLET (FP) PO SCH (06:30)
[2018-07-04 08:25] LABS: BASO % 0.8 % (0-2.0); EOS % 1.4 % (0-4.5); HEMATOCRIT 34.2 % (32.4-45.2); HEMOGLOBIN 11.1 GM/dL (10.7-15.3); LYMPH % 19.1 % (8-40); MCH 29.1 pg (25.7-33.7); MCHC 32.4 g/dl (32.0-36.0); MEAN CELL VOLUME 89.7 fl (80-96); MEAN PLT VOLUME 7.9 fl (7.5-11.1); MONO % 5.1 % (3.8-10.2); NEUT % 73.6 % (42.8-82.8); PLATELET COUNT 276 K/MM3 (134-434); RBC 3.81 M/mm3 (3.60-5.2); RDW 13.6 % (11.6-15.6); WHITE BLOOD COUNT 9.6 K/mm3 (4.0-10.0)
--- NOTE | 2018-07-04 09:28 | PN ---
Progress Note, Physician - Current Medication List Current Medications: Active Medications Acetaminophen (Tylenol -) 500 mg PO Q6H PRN PRN Reason: PAIN LEVEL 1-5 Allopurinol (Zyloprim -) 100 mg PO DAILY [facility] Last Admin: 07/03/18 10:21 Dose: 100 mg Carbidopa/Levodopa (Sinemet *Cr* 50/200 -) 1 combo PO TID@0700,1200,1700 [facility] Last Admin: 07/04/18 06:30 Dose: 1 combo Cephalexin HCl (Keflex -) 500 mg PO BID [facility] Furosemide (Lasix -) 40 mg PO DAILY [facility] Last Admin: 07/03/18 10:21 Dose: 40 mg Glimepiride (Amaryl -) 1 mg PO DAILY@0700 [facility] Last Admin: 07/04/18 06:30 Dose: 1 mg Heparin Sodium (Porcine) (Heparin -) 5,000 unit SQ BID [facility] Last Admin: 07/03/18 21:33 Dose: 5,000 unit Insulin Aspart (Novolog Vial Sliding Scale -) 1 vial SQ TIDAC [facility]; Protocol Last Admin: 07/04/18 06:18 Dose: Not Given Metoprolol Succinate (Toprol Xl -) 50 mg PO BID [facility] Last Admin: 07/03/18 21:33 Dose: 50 mg Multivitamins/Minerals/Vitamin C (Tab-A-Vit -) 1 tab PO DAILY [facility] Last Admin: 07/03/18 10:21 Dose: 1 tab Pantoprazole Sodium (Protonix -) 40 mg PO BID [facility] Last Admin: 07/03/18 21:32 Dose: 40 mg Potassium Chloride (K-Dur -) 20 meq PO DAILY [facility] Last Admin: 07/03/18 10:21 Dose: 20 meq Pramipexole Dihydrochloride (Mirapex -) 0.25 mg PO HS [facility] Last Admin: 07/03/18 21:33 Dose: 0.25 mg Quetiapine Fumarate (Seroquel -) 12.5 mg PO DAILY [facility] Last Admin: 07/03/18 10:21 Dose: 12.5 mg Quetiapine Fumarate (Seroquel -) 25 mg PO HS [facility] Last Admin: 07/03/18 21:33 Dose: 25 mg - Objective Vital Signs: Vital Signs Temperature 98.4 F 07/04/18 07:49 Pulse Rate 75 07/04/18 07:49 Respiratory Rate 19 07/04/18 07:49 Blood Pressure 125/64 07/04/18 07:49 O2 Sat by Pulse Oximetry (%) 96 07/03/18 09:00 Labs: CBC, BMP 07/04/18 07:30 Problem List - Problems (1) CKD (chronic kidney disease) Code(s): N18.9 - CHRONIC KIDNEY DISEASE, UNSPECIFIED Qualifiers: Chronic kidney disease stage: stage 3 (moderate) Qualified Code(s): N18.3 - Chronic kidney disease, stage 3 (moderate) (2) Cellulitis of lower leg Code(s): L03.119 - CELLULITIS OF UNSPECIFIED PART OF LIMB (3) Leg pain Code(s): M79.606 - PAIN IN LEG, UNSPECIFIED Qualifiers: Laterality: bilateral Qualified Code(s): M79.604 - Pain in right leg; M79.605 - Pain in left leg (4) Parkinsons disease Code(s): G20 - PARKINSON'S DISEASE (5) Peripheral edema Code(s): R60.9 - EDEMA, UNSPECIFIED (6) Gout Code(s): M10.9 - GOUT, UNSPECIFIED Qualifiers: Gout site: knee Gout etiology: unspecified cause Laterality: unspecified laterality (7) Knee pain, bilateral Code(s): M25.561 - PAIN IN RIGHT KNEE; M25.562 - PAIN IN LEFT KNEE Qualifiers: Chronicity: acute Qualified Code(s): M25.561 - Pain in right knee; M25.562 - Pain in left knee (8) Rotator cuff injury Code(s): S46.009A - UNSP INJ MUSC/TEND THE ROTATOR CUFF OF UNSP SHOULDER, INIT Qualifiers: Encounter type: initial encounter Laterality: right Qualified Code(s): S46.001A - Unspecified injury of muscle(s) and tendon(s) of the rotator cuff of right shoulder, initial encounter
[2018-07-04 09:47] LABS: ANION GAP 8 MMOL/L (8-16); BLOOD UREA NITROGEN 25 mg/dL (7-18); CALCIUM 8.4 mg/dL (8.5-10.1); CHLORIDE 106 mmol/L (98-107); CO2 26 mmol/L (21-32); GLUCOSE,RANDOM 116 mg/dL (74-106); POTASSIUM 3.7 mmol/L (3.5-5.1); SODIUM 140 mmol/L (136-145)
[2018-07-04] MEDS: HEPARIN NA (PORCINE) 5,000 UNITS/ML 1ML VIAL SQ SCH (09:55)
[2018-07-04] MEDS: ALLOPURINOL 100 MG TABLET (FP) PO SCH (09:57)
[2018-07-04] MEDS: MULTIVITAMINS (DAILY MVI) TABLET (FP) PO SCH (09:57)
[2018-07-04] MEDS: PANTOPRAZOLE 40 MG TABLET (FP) PO SCH ×2 (09:57→21:59)
[2018-07-04] MEDS: POTASSIUM CHLORIDE TABS 20 MEQ TABLET.ER (FP) PO SCH (09:57)
[2018-07-04] MEDS: FUROSEMIDE 40 MG TABLET (FP) PO SCH (09:57)
[2018-07-04] MEDS: QUEtiapine FUMARATE 25 MG TABLET (FP) PO SCH ×2 (09:57→21:59)
[2018-07-04] MEDS: CEPHALEXIN MONOHYDRATE 500 MG CAPSULE (UD) PO SCH ×2 (11:24→21:59)
--- NOTE | 2018-07-04 12:10 | PN ---
Progress Note, Physician History of Present Illness: patient doing well no new issues much better mentally and also swelling and cellulitis nearly resolved - Current Medication List Current Medications: Active Medications Acetaminophen (Tylenol -) 500 mg PO Q6H PRN PRN Reason: PAIN LEVEL 1-5 Allopurinol (Zyloprim -) 100 mg PO DAILY [facility] Last Admin: 07/04/18 09:57 Dose: 100 mg Carbidopa/Levodopa (Sinemet *Cr* 50/200 -) 1 combo PO TID@0700,1200,1700 [facility] Last Admin: 07/04/18 06:30 Dose: 1 combo Cephalexin HCl (Keflex -) 500 mg PO BID [facility] Last Admin: 07/04/18 11:24 Dose: 500 mg Furosemide (Lasix -) 40 mg PO DAILY [facility] Last Admin: 07/04/18 09:57 Dose: 40 mg Glimepiride (Amaryl -) 1 mg PO DAILY@0700 [facility] Last Admin: 07/04/18 06:30 Dose: 1 mg Heparin Sodium (Porcine) (Heparin -) 5,000 unit SQ BID [facility] Last Admin: 07/04/18 09:55 Dose: 5,000 unit Insulin Aspart (Novolog Vial Sliding Scale -) 1 vial SQ TIDAC [facility]; Protocol Last Admin: 07/04/18 11:24 Dose: 2 units Metoprolol Succinate (Toprol Xl -) 50 mg PO BID [facility] Last Admin: 07/04/18 09:57 Dose: 50 mg Multivitamins/Minerals/Vitamin C (Tab-A-Vit -) 1 tab PO DAILY [facility] Last Admin: 07/04/18 09:57 Dose: 1 tab Pantoprazole Sodium (Protonix -) 40 mg PO BID [facility] Last Admin: 07/04/18 09:57 Dose: 40 mg Potassium Chloride (K-Dur -) 20 meq PO DAILY [facility] Last Admin: 07/04/18 09:57 Dose: 20 meq Pramipexole Dihydrochloride (Mirapex -) 0.25 mg PO [facility] Last Admin: 07/03/18 21:33 Dose: 0.25 mg Quetiapine Fumarate (Seroquel -) 12.5 mg PO DAILY [facility] Last Admin: 07/04/18 09:57 Dose: 12.5 mg Quetiapine Fumarate (Seroquel -) 25 mg PO HS [facility] Last Admin: 07/03/18 21:33 Dose: 25 mg - Objective Vital Signs: Vital Signs Temperature 98.0 F 07/04/18 09:54 Pulse Rate 74 07/04/18 09:54 Respiratory Rate 18 07/04/18 09:54 Blood Pressure 133/69 07/04/18 09:54 O2 Sat by Pulse Oximetry (%) 96 07/03/18 09:00 Constitutional: Yes: No Distress, Calm Cardiovascular: Yes: Regular Rate and Rhythm Respiratory: Yes: Regular, CTA Bilaterally Gastrointestinal: Yes: Normal Bowel Sounds, Soft Musculoskeletal: Yes: WNL Extremities: Yes: Other Neurological: Yes: Alert, Oriented Psychiatric: Yes: Alert, Oriented Labs: CBC, BMP 07/04/18 07:30 07/04/18 07:30 Assessment/Plan Problem List - Problems (1) CKD (chronic kidney disease) Code(s): N18.9 - CHRONIC KIDNEY DISEASE, UNSPECIFIED Qualifiers: Chronic kidney disease stage: unspecified stage Qualified Code(s): N18.9 - Chronic kidney disease, unspecified (2) Cellulitis of lower leg Code(s): L03.119 - CELLULITIS OF UNSPECIFIED PART OF LIMB (3) Leg pain Code(s): M79.606 - PAIN IN LEG, UNSPECIFIED Qualifiers: Laterality: bilateral Qualified Code(s): M79.604 - Pain in right leg; M79.605 - Pain in left leg (4) Parkinsons disease Code(s): G20 - PARKINSON'S DISEASE (5) Peripheral edema Code(s): R60.9 - EDEMA, UNSPECIFIED (6) Gout Code(s): M10.9 - GOUT, UNSPECIFIED Qualifiers: Gout site: knee Gout etiology: unspecified cause Laterality: unspecified laterality (7) Knee pain, bilateral Code(s): M25.561 - PAIN IN RIGHT KNEE; M25.562 - PAIN IN LEFT KNEE Qualifiers: Chronicity: acute Qualified Code(s): M25.561 - Pain in right knee; M25.562 - Pain in left knee (8) Rotator cuff injury Code(s): S46.009A - UNSP INJ MUSC/TEND THE ROTATOR CUFF OF UNSP SHOULDER, INIT Qualifiers: Encounter type: initial encounter Laterality: right Qualified Code(s): S46.001A - Unspecified injury of muscle(s) and tendon(s) of the rotator cuff of right shoulder, initial encounter r/o uti plan continue current mgmt patient doing well physio rest as per the team
[2018-07-04] MEDS ORDERED: PT OWN MED DRAWER 7, Y5N ONE ×2 (14:19→17:25)
--- NOTE | 2018-07-04 16:37 | PN ---
Progress Note, Physician History of Present Illness: LE edema and erythema resolved with diuresis and empiric abx for cellulitis. Denies chest pain or dyspnea. - Current Medication List Current Medications: Active Medications Acetaminophen (Tylenol -) 500 mg PO Q6H PRN PRN Reason: PAIN LEVEL 1-5 Allopurinol (Zyloprim -) 100 mg PO DAILY [facility] Last Admin: 07/04/18 09:57 Dose: 100 mg Carbidopa/Levodopa (Sinemet *Cr* 50/200 -) 1 combo PO TID@0700,1200,1700 [facility] Last Admin: 07/04/18 12:00 Dose: 1 combo Cephalexin HCl (Keflex -) 500 mg PO BID [facility] Last Admin: 07/04/18 11:24 Dose: 500 mg Furosemide (Lasix -) 40 mg PO DAILY [facility] Last Admin: 07/04/18 09:57 Dose: 40 mg Glimepiride (Amaryl -) 1 mg PO DAILY@0700 [facility] Last Admin: 07/04/18 06:30 Dose: 1 mg Heparin Sodium (Porcine) (Heparin -) 5,000 unit SQ BID [facility] Last Admin: 07/04/18 09:55 Dose: 5,000 unit Insulin Aspart (Novolog Vial Sliding Scale -) 1 vial SQ TIDAC [facility]; Protocol Last Admin: 07/04/18 11:24 Dose: 2 units Metoprolol Succinate (Toprol Xl -) 50 mg PO BID [facility] Last Admin: 07/04/18 09:57 Dose: 50 mg Multivitamins/Minerals/Vitamin C (Tab-A-Vit -) 1 tab PO DAILY [facility] Last Admin: 07/04/18 09:57 Dose: 1 tab Pantoprazole Sodium (Protonix -) 40 mg PO BID [facility] Last Admin: 07/04/18 09:57 Dose: 40 mg Potassium Chloride (K-Dur -) 20 meq PO DAILY [facility] Last Admin: 07/04/18 09:57 Dose: 20 meq Pramipexole Dihydrochloride (Mirapex -) 0.25 mg PO [facility] Last Admin: 07/03/18 21:33 Dose: 0.25 mg Quetiapine Fumarate (Seroquel -) 12.5 mg PO DAILY [facility] Last Admin: 07/04/18 09:57 Dose: 12.5 mg Quetiapine Fumarate (Seroquel -) 25 mg PO HS [facility] Last Admin: 07/03/18 21:33 Dose: 25 mg - Objective Vital Signs: Vital Signs Temperature 98.4 F 07/04/18 14:57 Pulse Rate 75 07/04/18 14:57 Respiratory Rate 18 07/04/18 14:57 Blood Pressure 123/66 07/04/18 14:57 O2 Sat by Pulse Oximetry (%) 95 07/04/18 09:00 Constitutional: Yes: No Distress, Calm Neck: Yes: Supple Cardiovascular: Yes: Regular Rate and Rhythm, Murmur (2/6 SM) Respiratory: Yes: Regular, Diminished Gastrointestinal: Yes: Normal Bowel Sounds, Soft Edema: Yes Edema: LLE: Trace, RLE: Trace Labs: CBC, BMP 07/04/18 07:30 07/04/18 07:30 Problem List - Problems (1) Hypertensive cardiomyopathy Code(s): I11.9 - HYPERTENSIVE HEART DISEASE WITHOUT HEART FAILURE; I43 - CARDIOMYOPATHY IN DISEASES CLASSIFIED ELSEWHERE Qualifiers: Heart failure presence: without heart failure Qualified Code(s): I11.9 - Hypertensive heart disease without heart failure; I43 - Cardiomyopathy in diseases classified elsewhere (2) Diastolic dysfunction Code(s): I51.9 - HEART DISEASE, UNSPECIFIED (3) CKD (chronic kidney disease) Code(s): N18.9 - CHRONIC KIDNEY DISEASE, UNSPECIFIED Qualifiers: Chronic kidney disease stage: stage 3 (moderate) Qualified Code(s): N18.3 - Chronic kidney disease, stage 3 (moderate) (4) Parkinsons disease Code(s): G20 - PARKINSON'S DISEASE (5) Peripheral edema Code(s): R60.9 - EDEMA, UNSPECIFIED Assessment/Plan 09/17/17 Echo: Normal LV size and fxn, mod TR, tr-mild TR 1. LE swelling and erythema possible cellulitis resolving, ruled out for DVT 2. CKD Stage 3 (baseline Cr 1.5) 3. Hypertensive cardiomyopathy 4. 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 Type 2 DM P:1. Oral diuresis with monitor diuretic response, renal fxn and electrolytes 2. Continue Toprol XL 50 bid, add losartan 25 qd as renal fxn stabilizes 3. Complete oral empiric abx course 4. PD and RLS meds per neuro 5. DVT prophylaxis
--- NOTE | 2018-07-04 21:22 | PN ---
Progress Note, Physician Chief Complaint: Pt is better now Better oriented but confused at times son at the bedside Pt needs PT History of Present Illness: 73 year old female with a PMH significant for Parkinson's disease, CKD, HTN borderline DM, presented to the ED with increased pain and swelling in her right leg with a blister. She reports she has been having swollen legs for the past several months, but it has worsened over the past week. She reports it hurts to stand on her swollen legs. Denies fevers, dizziness, syncope, chest pain, SOB, n/v/d. Improving Pt is sleeping now Pt will be going for STR - Current Medication List Current Medications: Active Medications Acetaminophen (Tylenol -) 500 mg PO Q6H PRN PRN Reason: PAIN LEVEL 1-5 Allopurinol (Zyloprim -) 100 mg PO DAILY [facility] Last Admin: 07/04/18 09:57 Dose: 100 mg Carbidopa/Levodopa (Sinemet *Cr* 50/200 -) 1 combo PO TID@0700,1200,1700 [facility] Last Admin: 07/04/18 17:35 Dose: 1 combo Cephalexin HCl (Keflex -) 500 mg PO BID [facility] Last Admin: 07/04/18 11:24 Dose: 500 mg Furosemide (Lasix -) 40 mg PO DAILY [facility] Last Admin: 07/04/18 09:57 Dose: 40 mg Glimepiride (Amaryl -) 1 mg PO DAILY@0700 [facility] Last Admin: 07/04/18 06:30 Dose: 1 mg Heparin Sodium (Porcine) (Heparin -) 5,000 unit SQ BID [facility] Last Admin: 07/04/18 09:55 Dose: 5,000 unit Insulin Aspart (Novolog Vial Sliding Scale -) 1 vial SQ TIDAC [facility]; Protocol Last Admin: 07/04/18 17:35 Dose: Not Given Losartan Potassium (Cozaar -) 25 mg PO DAILY [facility] Metoprolol Succinate (Toprol Xl -) 50 mg PO BID [facility] Last Admin: 07/04/18 09:57 Dose: 50 mg Multivitamins/Minerals/Vitamin C (Tab-A-Vit -) 1 tab PO DAILY [facility] Last Admin: 07/04/18 09:57 Dose: 1 tab Pantoprazole Sodium (Protonix -) 40 mg PO BID [facility] Last Admin: 07/04/18 09:57 Dose: 40 mg Potassium Chloride (K-Dur -) 20 meq PO DAILY [facility] Last Admin: 07/04/18 09:57 Dose: 20 meq Pramipexole Dihydrochloride (Mirapex -) 0.25 mg PO [facility] Last Admin: 07/03/18 21:33 Dose: 0.25 mg Quetiapine Fumarate (Seroquel -) 12.5 mg PO DAILY [facility] Last Admin: 07/04/18 09:57 Dose: 12.5 mg Quetiapine Fumarate (Seroquel -) 25 mg PO HS [facility] Last Admin: 07/03/18 21:33 Dose: 25 mg - Objective Vital Signs: Vital Signs Temperature 98.7 F 07/04/18 18:00 Pulse Rate 78 07/04/18 18:00 Respiratory Rate 20 07/04/18 18:00 Blood Pressure 116/64 07/04/18 18:00 O2 Sat by Pulse Oximetry (%) 95 07/04/18 09:00 Constitutional: Yes: No Distress Eyes: Yes: Conjunctiva Clear, EOM Intact HENT: Yes: Atraumatic, Normocephalic Neck: Yes: Supple, Trachea Midline Cardiovascular: Yes: Regular Rate and Rhythm, S1, S2 Respiratory: Yes: Regular, CTA Bilaterally Gastrointestinal: Yes: Normal Bowel Sounds, Soft Musculoskeletal: Yes: Joint Stiffness Edema: No Neurological: Yes: Alert, Cran Nerves II-XII Intact Labs: CBC, BMP 07/04/18 07:30 07/04/18 07:30 Problem List - Problems (1) CKD (chronic kidney disease) Code(s): N18.9 - CHRONIC KIDNEY DISEASE, UNSPECIFIED Qualifiers: Chronic kidney disease stage: stage 3 (moderate) Qualified Code(s): N18.3 - Chronic kidney disease, stage 3 (moderate) (2) Cellulitis of lower leg Code(s): L03.119 - CELLULITIS OF UNSPECIFIED PART OF LIMB (3) Leg pain Code(s): M79.606 - PAIN IN LEG, UNSPECIFIED Qualifiers: Laterality: bilateral Qualified Code(s): M79.604 - Pain in right leg; M79.605 - Pain in left leg (4) Parkinsons disease Code(s): G20 - PARKINSON'S DISEASE (5) Peripheral edema Code(s): R60.9 - EDEMA, UNSPECIFIED (6) Gout Code(s): M10.9 - GOUT, UNSPECIFIED Qualifiers: Gout site: knee Gout etiology: unspecified cause Laterality: unspecified laterality (7) Knee pain, bilateral Code(s): M25.561 - PAIN IN RIGHT KNEE; M25.562 - PAIN IN LEFT KNEE Qualifiers: Chronicity: acute Qualified Code(s): M25.561 - Pain in right knee; M25.562 - Pain in left knee (8) Rotator cuff injury Code(s): S46.009A - UNSP INJ MUSC/TEND THE ROTATOR CUFF OF UNSP SHOULDER, INIT Qualifiers: Encounter type: initial encounter Laterality: right Qualified Code(s): S46.001A - Unspecified injury of muscle(s) and tendon(s) of the rotator cuff of right shoulder, initial encounter Assessment/Plan 1) CKD (chronic kidney disease) Code(s): N18.9 - CHRONIC KIDNEY DISEASE, UNSPECIFIED Qualifiers: Chronic kidney disease stage: unspecified stage Qualified Code(s): N18.9 - Chronic kidney disease, unspecified (2) Cellulitis of lower leg Code(s): L03.119 - CELLULITIS OF UNSPECIFIED PART OF LIMB (3) Leg pain Code(s): M79.606 - PAIN IN LEG, UNSPECIFIED Qualifiers: Laterality: bilateral Qualified Code(s): M79.604 - Pain in right leg; M79.605 - Pain in left leg (4) Parkinsons disease Code(s): G20 - PARKINSON'S DISEASE (5) Peripheral edema Code(s): R60.9 - EDEMA, UNSPECIFIED (6) Gout Code(s): M10.9 - GOUT, UNSPECIFIED Qualifiers: Gout site: knee Gout etiology: unspecified cause Laterality: unspecified laterality (7) Knee pain, bilateral Code(s): M25.561 - PAIN IN RIGHT KNEE; M25.562 - PAIN IN LEFT KNEE Qualifiers: Chronicity: acute Qualified Code(s): M25.561 - Pain in right knee (8) Rotator cuff injury Code(s): S46.009A - UNSP INJ MUSC/TEND THE ROTATOR CUFF OF UNSP SHOULDER, INIT Qualifiers: Encounter type: initial encounter Laterality: right Qualified Code(s): S46.001A - Unspecified injury of muscle(s) and tendon(s) of the rotator cuff of right shoulder, initial encounter B/L oedema better cellulitis resolving No Fever Better oriented Improved with Alisson Spoke with and son at bedside Pt will go to STR Had a meeting with Pt needs STR
[2018-07-04] MEDS: PRAMIPEXOLE DIHYDROCHLORIDE 0.25 MG TABLET PO SCH (22:00)
[2018-07-05] MEDS: INSULIN SLIDING SCALE (NOVOLOG) 1 VIAL SQ SCH ×3 (06:17→17:35)
[2018-07-05] MEDS: GLIMEPIRIDE 1 MG TABLET (FP) PO SCH (06:18)
[2018-07-05] MEDS: POTASSIUM CHLORIDE TABS 20 MEQ TABLET.ER (FP) PO SCH (10:28)
[2018-07-05] MEDS: QUEtiapine FUMARATE 25 MG TABLET (FP) PO SCH ×2 (10:28→23:29)
[2018-07-05] MEDS: MULTIVITAMINS (DAILY MVI) TABLET (FP) PO SCH (10:29)
[2018-07-05] MEDS: PANTOPRAZOLE 40 MG TABLET (FP) PO SCH ×2 (10:29→23:29)
[2018-07-05] MEDS: FUROSEMIDE 40 MG TABLET (FP) PO SCH (10:29)
[2018-07-05] MEDS: LOSARTAN POTASSIUM 50 MG TABLET (FP) PO SCH (10:29)
[2018-07-05] MEDS: CEPHALEXIN MONOHYDRATE 500 MG CAPSULE (UD) PO SCH ×2 (10:29→23:29)
[2018-07-05] MEDS: ALLOPURINOL 100 MG TABLET (FP) PO SCH (10:30)
[2018-07-05] MEDS ORDERED: PT OWN MED DRAWER 7, Y5N ONE ×2 (13:52→17:07)
--- NOTE | 2018-07-05 17:27 | PN ---
Progress Note, Physician History of Present Illness: LE edema and erythema resolved with diuresis and empiric abx for cellulitis. Denies chest pain or dyspnea. - Current Medication List Current Medications: Active Medications Acetaminophen (Tylenol -) 500 mg PO Q6H PRN PRN Reason: PAIN LEVEL 1-5 Allopurinol (Zyloprim -) 100 mg PO DAILY [facility] Last Admin: 07/05/18 10:30 Dose: 100 mg Carbidopa/Levodopa (Sinemet *Cr* 50/200 -) 1 combo PO TID@0700,1200,1700 [facility] Last Admin: 07/05/18 12:00 Dose: 1 combo Cephalexin HCl (Keflex -) 500 mg PO BID [facility] Last Admin: 07/05/18 10:29 Dose: 500 mg Furosemide (Lasix -) 40 mg PO DAILY [facility] Last Admin: 07/05/18 10:29 Dose: 40 mg Glimepiride (Amaryl -) 1 mg PO DAILY@0700 [facility] Last Admin: 07/05/18 06:18 Dose: 1 mg Insulin Aspart (Novolog Vial Sliding Scale -) 1 vial SQ TIDAC [facility]; Protocol Last Admin: 07/05/18 11:50 Dose: Not Given Losartan Potassium (Cozaar -) 25 mg PO DAILY [facility] Last Admin: 07/05/18 10:29 Dose: 25 mg Metoprolol Succinate (Toprol Xl -) 50 mg PO BID [facility] Last Admin: 07/05/18 10:29 Dose: 50 mg Multivitamins/Minerals/Vitamin C (Tab-A-Vit -) 1 tab PO DAILY [facility] Last Admin: 07/05/18 10:29 Dose: 1 tab Pantoprazole Sodium (Protonix -) 40 mg PO BID [facility] Last Admin: 07/05/18 10:29 Dose: 40 mg Potassium Chloride (K-Dur -) 20 meq PO DAILY [facility] Last Admin: 07/05/18 10:28 Dose: 20 meq Pramipexole Dihydrochloride (Mirapex -) 0.25 mg PO [facility] Last Admin: 07/04/18 22:00 Dose: 0.25 mg Quetiapine Fumarate (Seroquel -) 12.5 mg PO DAILY [facility] Last Admin: 07/05/18 10:28 Dose: 12.5 mg Quetiapine Fumarate (Seroquel -) 25 mg PO HS [facility] Last Admin: 07/04/18 21:59 Dose: 25 mg - Objective Vital Signs: Vital Signs Temperature 97.4 F L 07/05/18 14:38 Pulse Rate 77 07/05/18 14:38 Respiratory Rate 22 H 07/05/18 14:38 Blood Pressure 127/69 07/05/18 14:38 O2 Sat by Pulse Oximetry (%) 95 07/05/18 09:00 Constitutional: Yes: No Distress, Calm Neck: Yes: Supple Cardiovascular: Yes: Regular Rate and Rhythm Respiratory: Yes: Regular, CTA Bilaterally Gastrointestinal: Yes: Normal Bowel Sounds, Soft Edema: No Labs: CBC, BMP 07/04/18 07:30 07/04/18 07:30 Problem List - Problems (1) Hypertensive cardiomyopathy Code(s): I11.9 - HYPERTENSIVE HEART DISEASE WITHOUT HEART FAILURE; I43 - CARDIOMYOPATHY IN DISEASES CLASSIFIED ELSEWHERE Qualifiers: Heart failure presence: without heart failure Qualified Code(s): I11.9 - Hypertensive heart disease without heart failure; I43 - Cardiomyopathy in diseases classified elsewhere (2) Diastolic dysfunction Code(s): I51.9 - HEART DISEASE, UNSPECIFIED (3) CKD (chronic kidney disease) Code(s): N18.9 - CHRONIC KIDNEY DISEASE, UNSPECIFIED Qualifiers: Chronic kidney disease stage: stage 3 (moderate) Qualified Code(s): N18.3 - Chronic kidney disease, stage 3 (moderate) (4) Parkinsons disease Code(s): G20 - PARKINSON'S DISEASE (5) Peripheral edema Code(s): R60.9 - EDEMA, UNSPECIFIED Assessment/Plan 09/17/17 Echo: Normal LV size and fxn, mod TR, tr-mild TR 1. LE swelling and erythema possible cellulitis resolving, ruled out for DVT 2. CKD Stage 3 (baseline Cr 1.5) 3. Hypertensive cardiomyopathy 4. 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 Type 2 DM P:1. Oral diuresis with monitor diuretic response, renal fxn and electrolytes 2. Continue Toprol XL 50 bid and losartan 25 qd as renal fxn stabilizes 3. Complete oral empiric abx course 4. PD and RLS meds per neuro 5. DVT prophylaxis
--- NOTE | 2018-07-05 18:40 | PN ---
Progress Note, Physician Chief Complaint: Pt is better now Better oriented but confused at times No Fever No SOB History of Present Illness: 73 year old female with a PMH significant for Parkinson's disease, CKD, HTN borderline DM, presented to the ED with increased pain and swelling in her right leg with a blister. She reports she has been having swollen legs for the past several months, but it has worsened over the past week. She reports it hurts to stand on her swollen legs. Denies fevers, dizziness, syncope, chest pain, SOB, n/v/d. Improving Pt is not in any distress Pt will be going for STR - Current Medication List Current Medications: Active Medications Acetaminophen (Tylenol -) 500 mg PO Q6H PRN PRN Reason: PAIN LEVEL 1-5 Allopurinol (Zyloprim -) 100 mg PO DAILY [facility] Last Admin: 07/05/18 10:30 Dose: 100 mg Carbidopa/Levodopa (Sinemet *Cr* 50/200 -) 1 combo PO TID@0700,1200,1700 [facility] Last Admin: 07/05/18 17:36 Dose: 1 combo Cephalexin HCl (Keflex -) 500 mg PO BID [facility] Last Admin: 07/05/18 10:29 Dose: 500 mg Furosemide (Lasix -) 40 mg PO DAILY [facility] Last Admin: 07/05/18 10:29 Dose: 40 mg Glimepiride (Amaryl -) 1 mg PO DAILY@0700 [facility] Last Admin: 07/05/18 06:18 Dose: 1 mg Insulin Aspart (Novolog Vial Sliding Scale -) 1 vial SQ TIDAC [facility]; Protocol Last Admin: 07/05/18 17:35 Dose: Not Given Losartan Potassium (Cozaar -) 25 mg PO DAILY [facility] Last Admin: 07/05/18 10:29 Dose: 25 mg Metoprolol Succinate (Toprol Xl -) 50 mg PO BID [facility] Last Admin: 07/05/18 10:29 Dose: 50 mg Multivitamins/Minerals/Vitamin C (Tab-A-Vit -) 1 tab PO DAILY [facility] Last Admin: 07/05/18 10:29 Dose: 1 tab Pantoprazole Sodium (Protonix -) 40 mg PO BID [facility] Last Admin: 07/05/18 10:29 Dose: 40 mg Potassium Chloride (K-Dur -) 20 meq PO DAILY [facility] Last Admin: 07/05/18 10:28 Dose: 20 meq Pramipexole Dihydrochloride (Mirapex -) 0.25 mg PO HS [facility] Last Admin: 07/04/18 22:00 Dose: 0.25 mg Quetiapine Fumarate (Seroquel -) 12.5 mg PO DAILY [facility] Last Admin: 07/05/18 10:28 Dose: 12.5 mg Quetiapine Fumarate (Seroquel -) 25 mg PO HS [facility] Last Admin: 07/04/18 21:59 Dose: 25 mg - Objective Vital Signs: Vital Signs Temperature 97.4 F L 07/05/18 14:38 Pulse Rate 77 07/05/18 14:38 Respiratory Rate 22 H 07/05/18 14:38 Blood Pressure 127/69 07/05/18 14:38 O2 Sat by Pulse Oximetry (%) 95 07/05/18 09:00 Constitutional: Yes: No Distress Eyes: Yes: Conjunctiva Clear, EOM Intact HENT: Yes: Atraumatic, Normocephalic Neck: Yes: Supple, Trachea Midline Cardiovascular: Yes: Regular Rate and Rhythm, S1, S2 Respiratory: Yes: Regular, CTA Bilaterally Gastrointestinal: Yes: Normal Bowel Sounds, Soft Musculoskeletal: Yes: Joint Stiffness Edema: No Peripheral Pulses WNL: Yes Labs: CBC, BMP 07/04/18 07:30 07/04/18 07:30 Problem List - Problems (1) CKD (chronic kidney disease) Code(s): N18.9 - CHRONIC KIDNEY DISEASE, UNSPECIFIED Qualifiers: Chronic kidney disease stage: stage 3 (moderate) Qualified Code(s): N18.3 - Chronic kidney disease, stage 3 (moderate) (2) Cellulitis of lower leg Code(s): L03.119 - CELLULITIS OF UNSPECIFIED PART OF LIMB (3) Leg pain Code(s): M79.606 - PAIN IN LEG, UNSPECIFIED Qualifiers: Laterality: bilateral Qualified Code(s): M79.604 - Pain in right leg; M79.605 - Pain in left leg (4) Parkinsons disease Code(s): G20 - PARKINSON'S DISEASE (5) Peripheral edema Code(s): R60.9 - EDEMA, UNSPECIFIED (6) Gout Code(s): M10.9 - GOUT, UNSPECIFIED Qualifiers: Gout site: knee Gout etiology: unspecified cause Laterality: unspecified laterality (7) Knee pain, bilateral Code(s): M25.561 - PAIN IN RIGHT KNEE; M25.562 - PAIN IN LEFT KNEE Qualifiers: Chronicity: acute Qualified Code(s): M25.561 - Pain in right knee; M25.562 - Pain in left knee (8) Rotator cuff injury Code(s): S46.009A - UNSP INJ MUSC/TEND THE ROTATOR CUFF OF UNSP SHOULDER, INIT Qualifiers: Encounter type: initial encounter Laterality: right Qualified Code(s): S46.001A - Unspecified injury of muscle(s) and tendon(s) of the rotator cuff of right shoulder, initial encounter Assessment/Plan 1) CKD (chronic kidney disease) Code(s): N18.9 - CHRONIC KIDNEY DISEASE, UNSPECIFIED Qualifiers: Chronic kidney disease stage: unspecified stage Qualified Code(s): N18.9 - Chronic kidney disease, unspecified (2) Cellulitis of lower leg Code(s): L03.119 - CELLULITIS OF UNSPECIFIED PART OF LIMB (3) Leg pain Code(s): M79.606 - PAIN IN LEG, UNSPECIFIED Qualifiers: Laterality: bilateral Qualified Code(s): M79.604 - Pain in right leg; M79.605 - Pain in left leg (4) Parkinsons disease Code(s): G20 - PARKINSON'S DISEASE (5) Peripheral edema Code(s): R60.9 - EDEMA, UNSPECIFIED (6) Gout Code(s): M10.9 - GOUT, UNSPECIFIED Qualifiers: Gout site: knee Gout etiology: unspecified cause Laterality: unspecified laterality (7) Knee pain, bilateral Code(s): M25.561 - PAIN IN RIGHT KNEE; M25.562 - PAIN IN LEFT KNEE Qualifiers: Chronicity: acute Qualified Code(s): M25.561 - Pain in right knee (8) Rotator cuff injury Code(s): S46.009A - UNSP INJ MUSC/TEND THE ROTATOR CUFF OF UNSP SHOULDER, INIT Qualifiers: Encounter type: initial encounter Laterality: right Qualified Code(s): S46.001A - Unspecified injury of muscle(s) and tendon(s) of the rotator cuff of right shoulder, initial encounter cellulitis resolved No Fever Better oriented Improved with Sinamet Spoke with and son at bedside Pt will go to STR Had a meeting with and son Pt needs STR
[2018-07-05] MEDS: PRAMIPEXOLE DIHYDROCHLORIDE 0.25 MG TABLET PO SCH (23:29)
[2018-07-05] MEDS: HEPARIN NA (PORCINE) 5,000 UNITS/ML 1ML VIAL SQ SCH (23:30)
[2018-07-06] MEDS: INSULIN SLIDING SCALE (NOVOLOG) 1 VIAL SQ SCH ×3 (06:21→16:42)
[2018-07-06] MEDS: GLIMEPIRIDE 1 MG TABLET (FP) PO SCH (06:22)
[2018-07-06] MEDS ORDERED: INSULIN (NOVOLOG) ASPART 100 UNITS/ML 10ML VIAL ONE (06:54)
[2018-07-06] MEDS ORDERED: INSULIN (LEVEMIR) 100 UNITS/ML UNITS SQ ONE (06:54)
[2018-07-06] MEDS ORDERED: PT OWN MED DRAWER 7, Y5N ONE ×2 (06:55→09:38)
[2018-07-06] MEDS: MULTIVITAMINS (DAILY MVI) TABLET (FP) PO SCH (09:44)
[2018-07-06] MEDS: HEPARIN NA (PORCINE) 5,000 UNITS/ML 1ML VIAL SQ SCH (09:44)
[2018-07-06] MEDS: POTASSIUM CHLORIDE TABS 20 MEQ TABLET.ER (FP) PO SCH (09:44)
[2018-07-06] MEDS: PANTOPRAZOLE 40 MG TABLET (FP) PO SCH (09:44)
[2018-07-06] MEDS: ALLOPURINOL 100 MG TABLET (FP) PO SCH (09:44)
[2018-07-06] MEDS: CEPHALEXIN MONOHYDRATE 500 MG CAPSULE (UD) PO SCH (09:44)
[2018-07-06] MEDS: FUROSEMIDE 40 MG TABLET (FP) PO SCH (09:45)
[2018-07-06] MEDS: QUEtiapine FUMARATE 25 MG TABLET (FP) PO SCH (09:45)
[2018-07-06] MEDS: LOSARTAN POTASSIUM 50 MG TABLET (FP) PO SCH (09:45)
[2018-07-06 10:18] VITALS: TEMP 97.3
--- NOTE | 2018-07-06 11:04 | PN ---
Progress Note, Physician History of Present Illness: LE edema and erythema resolved with diuresis and empiric abx for cellulitis. Denies chest pain or dyspnea. OOB to chair. - Current Medication List Current Medications: Active Medications Acetaminophen (Tylenol -) 500 mg PO Q6H PRN PRN Reason: PAIN LEVEL 1-5 Allopurinol (Zyloprim -) 100 mg PO DAILY [facility] Last Admin: 07/06/18 09:44 Dose: 100 mg Carbidopa/Levodopa (Sinemet *Cr* 50/200 -) 1 combo PO TID@0700,1200,1700 [facility] Last Admin: 07/06/18 06:22 Dose: 1 combo Cephalexin HCl (Keflex -) 500 mg PO BID [facility] Last Admin: 07/06/18 09:44 Dose: 500 mg Furosemide (Lasix -) 40 mg PO DAILY [facility] Last Admin: 07/06/18 09:45 Dose: 40 mg Glimepiride (Amaryl -) 1 mg PO DAILY@0700 [facility] Last Admin: 07/06/18 06:22 Dose: 1 mg Heparin Sodium (Porcine) (Heparin -) 5,000 unit SQ BID [facility] Last Admin: 07/06/18 09:44 Dose: 5,000 unit Insulin Aspart (Novolog Vial Sliding Scale -) 1 vial SQ TIDAC [facility]; Protocol Last Admin: 07/06/18 06:21 Dose: 2 units Losartan Potassium (Cozaar -) 25 mg PO DAILY [facility] Last Admin: 07/06/18 09:45 Dose: 25 mg Metoprolol Succinate (Toprol Xl -) 50 mg PO BID [facility] Last Admin: 07/06/18 09:46 Dose: 50 mg Multivitamins/Minerals/Vitamin C (Tab-A-Vit -) 1 tab PO DAILY [facility] Last Admin: 07/06/18 09:44 Dose: 1 tab Pantoprazole Sodium (Protonix -) 40 mg PO BID [facility] Last Admin: 07/06/18 09:44 Dose: 40 mg Potassium Chloride (K-Dur -) 20 meq PO DAILY [facility] Last Admin: 07/06/18 09:44 Dose: 20 meq Pramipexole Dihydrochloride (Mirapex -) 0.25 mg PO HS [facility] Last Admin: 07/05/18 23:29 Dose: 0.25 mg Quetiapine Fumarate (Seroquel -) 12.5 mg PO DAILY [facility] Last Admin: 07/06/18 09:45 Dose: 12.5 mg Quetiapine Fumarate (Seroquel -) 25 mg PO HS [facility] Last Admin: 07/05/18 23:29 Dose: 25 mg - Objective Vital Signs: Vital Signs Temperature 97.3 F L 07/06/18 09:00 Pulse Rate 88 07/06/18 09:00 Respiratory Rate 18 07/06/18 09:00 Blood Pressure 130/60 07/06/18 09:00 O2 Sat by Pulse Oximetry (%) 97 07/06/18 09:52 Constitutional: Yes: No Distress, Calm Neck: Yes: Supple Cardiovascular: Yes: Regular Rate and Rhythm, Murmur (2/6 SM) Respiratory: Yes: Regular, CTA Bilaterally Gastrointestinal: Yes: Normal Bowel Sounds, Soft Edema: No Labs: CBC, BMP 07/04/18 07:30 07/04/18 07:30 Problem List - Problems (1) Hypertensive cardiomyopathy Code(s): I11.9 - HYPERTENSIVE HEART DISEASE WITHOUT HEART FAILURE; I43 - CARDIOMYOPATHY IN DISEASES CLASSIFIED ELSEWHERE Qualifiers: Heart failure presence: without heart failure Qualified Code(s): I11.9 - Hypertensive heart disease without heart failure; I43 - Cardiomyopathy in diseases classified elsewhere (2) Diastolic dysfunction Code(s): I51.9 - HEART DISEASE, UNSPECIFIED (3) CKD (chronic kidney disease) Code(s): N18.9 - CHRONIC KIDNEY DISEASE, UNSPECIFIED Qualifiers: Chronic kidney disease stage: stage 3 (moderate) Qualified Code(s): N18.3 - Chronic kidney disease, stage 3 (moderate) (4) Parkinsons disease Code(s): G20 - PARKINSON'S DISEASE (5) Peripheral edema Code(s): R60.9 - EDEMA, UNSPECIFIED Assessment/Plan 09/17/17 Echo: Normal LV size and fxn, mod TR, tr-mild TR 1. LE swelling and erythema possible cellulitis resolved, ruled out for DVT 2. CKD Stage 3 (baseline Cr 1.5) 3. Hypertensive cardiomyopathy 4. 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 Type 2 DM P:1. Oral diuresis with monitor diuretic response, renal fxn and electrolytes 2. Continue Toprol XL 50 bid and losartan 25 qd as renal fxn stabilizes 3. Completed oral empiric abx course 4. PD and RLS meds per neuro 5. DVT prophylaxis 6. D/c planning to SNF
--- NOTE | 2018-07-06 11:40 | PN ---
Progress Note, Physician History of Present Illness: LE edema and erythema resolved with diuresis and empiric abx for cellulitis. Denies chest pain or dyspnea. - Current Medication List Current Medications: Active Medications Acetaminophen (Tylenol -) 500 mg PO Q6H PRN PRN Reason: PAIN LEVEL 1-5 Allopurinol (Zyloprim -) 100 mg PO DAILY [facility] Last Admin: 07/06/18 09:44 Dose: 100 mg Carbidopa/Levodopa (Sinemet *Cr* 50/200 -) 1 combo PO TID@0700,1200,1700 [facility] Last Admin: 07/06/18 06:22 Dose: 1 combo Furosemide (Lasix -) 40 mg PO DAILY [facility] Last Admin: 07/06/18 09:45 Dose: 40 mg Glimepiride (Amaryl -) 1 mg PO DAILY@0700 [facility] Last Admin: 07/06/18 06:22 Dose: 1 mg Heparin Sodium (Porcine) (Heparin -) 5,000 unit SQ BID [facility] Last Admin: 07/06/18 09:44 Dose: 5,000 unit Insulin Aspart (Novolog Vial Sliding Scale -) 1 vial SQ TIDAC [facility]; Protocol Last Admin: 07/06/18 06:21 Dose: 2 units Losartan Potassium (Cozaar -) 25 mg PO DAILY [facility] Last Admin: 07/06/18 09:45 Dose: 25 mg Metoprolol Succinate (Toprol Xl -) 50 mg PO BID [facility] Last Admin: 07/06/18 09:46 Dose: 50 mg Multivitamins/Minerals/Vitamin C (Tab-A-Vit -) 1 tab PO DAILY [facility] Last Admin: 07/06/18 09:44 Dose: 1 tab Pantoprazole Sodium (Protonix -) 40 mg PO BID [facility] Last Admin: 07/06/18 09:44 Dose: 40 mg Potassium Chloride (K-Dur -) 20 meq PO DAILY [facility] Last Admin: 07/06/18 09:44 Dose: 20 meq Pramipexole Dihydrochloride (Mirapex -) 0.[address] [facility] Last Admin: 07/05/18 23:29 Dose: 0.25 mg Quetiapine Fumarate (Seroquel -) 12.5 mg PO DAILY [facility] Last Admin: 07/06/18 09:45 Dose: 12.5 mg Quetiapine Fumarate (Seroquel -) 25 mg PO HS [facility] Last Admin: 07/05/18 23:29 Dose: 25 mg - Objective Vital Signs: Vital Signs Temperature 97.3 F L 07/06/18 09:00 Pulse Rate 88 07/06/18 09:00 Respiratory Rate 18 07/06/18 09:00 Blood Pressure 130/60 07/06/18 09:00 O2 Sat by Pulse Oximetry (%) 97 07/06/18 09:52 Labs: CBC, BMP 07/04/18 07:30 07/04/18 07:30 Problem List - Problems (1) Hypertensive cardiomyopathy Code(s): I11.9 - HYPERTENSIVE HEART DISEASE WITHOUT HEART FAILURE; I43 - CARDIOMYOPATHY IN DISEASES CLASSIFIED ELSEWHERE Qualifiers: Qualified Code(s): I11.9 - Hypertensive heart disease without heart failure; I43 - Cardiomyopathy in diseases classified elsewhere (2) Diastolic dysfunction Code(s): I51.9 - HEART DISEASE, UNSPECIFIED (3) CKD (chronic kidney disease) Code(s): N18.9 - CHRONIC KIDNEY DISEASE, UNSPECIFIED Qualifiers: Qualified Code(s): N18.3 - Chronic kidney disease, stage 3 (moderate) (4) Parkinsons disease Code(s): G20 - PARKINSON'S DISEASE (5) Peripheral edema Code(s): R60.9 - EDEMA, UNSPECIFIED Assessment/Plan 09/17/17 Echo: Normal LV size and fxn, mod TR, tr-mild TR 1. LE swelling and erythema possible cellulitis resolving, ruled out for DVT 2. CKD Stage 3 (baseline Cr 1.5) 3. Hypertensive cardiomyopathy 4. 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 Type 2 DM P:1. Oral diuresis with monitor diuretic response, renal fxn and electrolytes 2. Continue Toprol XL 50 bid and losartan 25 qd as renal fxn stabilizes 3. Complete oral empiric abx course 4. PD and RLS meds per neuro 5. DVT prophylaxis
--- NOTE | 2018-07-06 11:46 | PN ---
Progress Note, Physician History of Present Illness: doing well no complaints sitting in the chair - Current Medication List Current Medications: Active Medications Acetaminophen (Tylenol -) 500 mg PO Q6H PRN PRN Reason: PAIN LEVEL 1-5 Allopurinol (Zyloprim -) 100 mg PO DAILY [facility] Last Admin: 07/06/18 09:44 Dose: 100 mg Carbidopa/Levodopa (Sinemet *Cr* 50/200 -) 1 combo PO TID@0700,1200,1700 [facility] Last Admin: 07/06/18 06:22 Dose: 1 combo Furosemide (Lasix -) 40 mg PO DAILY [facility] Last Admin: 07/06/18 09:45 Dose: 40 mg Glimepiride (Amaryl -) 1 mg PO DAILY@0700 [facility] Last Admin: 07/06/18 06:22 Dose: 1 mg Heparin Sodium (Porcine) (Heparin -) 5,000 unit SQ BID [facility] Last Admin: 07/06/18 09:44 Dose: 5,000 unit Insulin Aspart (Novolog Vial Sliding Scale -) 1 vial SQ TIDAC [facility]; Protocol Last Admin: 07/06/18 06:21 Dose: 2 units Losartan Potassium (Cozaar -) 25 mg PO DAILY [facility] Last Admin: 07/06/18 09:45 Dose: 25 mg Metoprolol Succinate (Toprol Xl -) 50 mg PO BID [facility] Last Admin: 07/06/18 09:46 Dose: 50 mg Multivitamins/Minerals/Vitamin C (Tab-A-Vit -) 1 tab PO DAILY [facility] Last Admin: 07/06/18 09:44 Dose: 1 tab Pantoprazole Sodium (Protonix -) 40 mg PO BID [facility] Last Admin: 07/06/18 09:44 Dose: 40 mg Potassium Chloride (K-Dur -) 20 meq PO DAILY [facility] Last Admin: 07/06/18 09:44 Dose: 20 meq Pramipexole Dihydrochloride (Mirapex -) 0.25 mg PO [facility] Last Admin: 07/05/18 23:29 Dose: 0.25 mg Quetiapine Fumarate (Seroquel -) 12.5 mg PO DAILY [facility] Last Admin: 07/06/18 09:45 Dose: 12.5 mg Quetiapine Fumarate (Seroquel -) 25 mg PO HS [facility] Last Admin: 07/05/18 23:29 Dose: 25 mg - Objective Vital Signs: Vital Signs Temperature 97.3 F L 07/06/18 09:00 Pulse Rate 88 07/06/18 09:00 Respiratory Rate 18 07/06/18 09:00 Blood Pressure 130/60 07/06/18 09:00 O2 Sat by Pulse Oximetry (%) 97 07/06/18 09:52 Constitutional: Yes: No Distress, Calm Cardiovascular: Yes: Regular Rate and Rhythm Respiratory: Yes: Regular, CTA Bilaterally Gastrointestinal: Yes: Normal Bowel Sounds, Soft Musculoskeletal: Yes: WNL Extremities: Yes: WNL Integumentary: Yes: Erythema (resolved) Neurological: Yes: Alert, Oriented Psychiatric: Yes: Alert, Oriented Labs: CBC, BMP 07/04/18 07:30 07/04/18 07:30 Assessment/Plan Problem List - Problems (1) CKD (chronic kidney disease) Code(s): N18.9 - CHRONIC KIDNEY DISEASE, UNSPECIFIED Qualifiers: Chronic kidney disease stage: unspecified stage Qualified Code(s): N18.9 - Chronic kidney disease, unspecified (2) Cellulitis of lower leg Code(s): L03.119 - CELLULITIS OF UNSPECIFIED PART OF LIMB (3) Leg pain Code(s): M79.606 - PAIN IN LEG, UNSPECIFIED Qualifiers: Laterality: bilateral Qualified Code(s): M79.604 - Pain in right leg; M79.605 - Pain in left leg (4) Parkinsons disease Code(s): G20 - PARKINSON'S DISEASE (5) Peripheral edema Code(s): R60.9 - EDEMA, UNSPECIFIED (6) Gout Code(s): M10.9 - GOUT, UNSPECIFIED Qualifiers: Gout site: knee Gout etiology: unspecified cause Laterality: unspecified laterality (7) Knee pain, bilateral Code(s): M25.561 - PAIN IN RIGHT KNEE; M25.562 - PAIN IN LEFT KNEE Qualifiers: Chronicity: acute Qualified Code(s): M25.561 - Pain in right knee; M25.562 - Pain in left knee (8) Rotator cuff injury Code(s): S46.009A - UNSP INJ MUSC/TEND THE ROTATOR CUFF OF UNSP SHOULDER, INIT Qualifiers: Encounter type: initial encounter Laterality: right Qualified Code(s): S46.001A - Unspecified injury of muscle(s) and tendon(s) of the rotator cuff of right shoulder, initial encounter r/o uti plan will stop abx physio rest as per the team \patient doing well
[2018-07-06 15:08] VITALS: BP 117/56; PULSE 86
--- NOTE | 2018-07-06 15:28 | DS ---
Physical Examination Vital Signs: Vital Signs Temperature 97.3 F L 07/06/18 14:06 Pulse Rate 86 07/06/18 14:06 Respiratory Rate 22 H 07/06/18 14:06 Blood Pressure 117/56 L 07/06/18 14:06 O2 Sat by Pulse Oximetry (%) 97 07/06/18 09:52 Constitutional: Yes: Anxious Eyes: Yes: Conjunctiva Clear, EOM Intact HENT: Yes: Atraumatic, Normocephalic Neck: Yes: Supple, Trachea Midline Cardiovascular: Yes: Regular Rate and Rhythm, S1, S2 Respiratory: Yes: Regular, CTA Bilaterally Gastrointestinal: Yes: Normal Bowel Sounds, Soft Musculoskeletal: Yes: Joint Stiffness Edema: No Peripheral Pulses WNL: Yes Neurological: Yes: Alert, Cran Nerves II-XII Intact Labs: CBC, BMP 07/04/18 07:30 07/04/18 07:30 Discharge Summary Reason For Visit: CELLULITIS OF LOWER LEG/CKD/PERIPHERAL ED Current Active Problems CKD (chronic kidney disease) (Acute) Cellulitis of lower leg (Acute) Diastolic dysfunction (Acute) Head injury (Acute) Hypertensive cardiomyopathy (Acute) Leg pain (Acute) Parkinsons disease (Acute) Peripheral edema (Acute) Condition: Stable - Instructions Referrals: Fermín Tristan MD [Primary Care Provider] - Lissa Greer MD [Staff Physician] - Disposition: ASSISTED FACILITY - Home Medications Comprehensive Discharge Medication List: Ambulatory Orders Carbidopa/Levodopa 50/200 [Sinemet 25/200 -] TID 01/20/17 Furosemide 40 mg PO DAILY 06/20/18 Glimepiride 1 mg PO DAILY 06/20/18 Metoprolol Succinate [Toprol Xl] 50 mg PO BID 06/20/18 Multivitamin [One Daily] 1 each PO DAILY 06/20/18 Potassium Chloride [K-Dur -] 10 meq PO DAILY 06/20/18 Pramipexole Di-HCl [Pramipexole ER] 0.25mg PO HS DAILY 06/20/18 Alopurinol 100 daily Quatapine 12.5 Mg podaily HS Losartan 25 PO daily B/L Paul stockings Novolog sliding scale
== END 2018-07-06 18:20 | DRG 602 ==
LOC: JER 15:18 → JERBED 17:38 → J5S 06-28 00:28
PROVIDERS: ADMIT Internal Medicine; ATTEND Internal Medicine
DX: L03.115 Cellulitis of right lower limb (principal); G93.41 Metabolic encephalopathy; I13.10 Hypertensive heart and chronic kidney disease without heart failure, with stage 1 through stage 4 chronic kidney disease, or unspecified chronic kidney disease; G20 Parkinson's disease; N18.3 Chronic kidney disease, stage 3 (moderate); E11.22 Type 2 diabetes mellitus with diabetic chronic kidney disease; E87.6 Hypokalemia; G25.81 Restless legs syndrome
CPT/HCPCS: 36415; 70450-TC; 71045-TC-FY; 80048; 80053; 81003; 81015; 82607; 82962; 83735; 83880; 84100; 84443; 85025; 85027; 85651; 86140; 87040; 87086; 87186; 93005; 93010; 93971-TC; 97116-GP; 97162-GP; 99285-25; J1644

== ENCOUNTER 2020-04-05 12:14 | Emergency (ER) | payer OTHER ==
--- NOTE | 2020-04-05 12:29 | PDOC ---
History of Present Illness - General Chief Complaint: Urinary Problem Stated Complaint: UTI S/S Time Seen by Provider: 04/05/20 12:17 History Source: Patient Exam Limitations: No Limitations - History of Present Illness Travel History: No Initial Comments: 04/05/20 13:00 74y F hx of parkinsons, htn, dm, presents with complaint of L flank pain. The patient endorsed urinary frequency earlier this week, went to urgent care she was diagnosed with a UTI she was started on antibiotic and then received a call yesterday that change her antibiotic. Patient notes that Since yesterday she has been having mild discomfort in her left flank region that seems worse when she is moving and walking. The pain is an aching sensation and lasts for several minutes before resolving. The pain does not seem to occur when she is at rest or laying down. Patient denies any fever, chills, back pain, dysuria, nausea/vomiting. The patient denies any associated chest pain, shortness of breath, dyspnea on exertion, lightheadedness, palpitations, abdominal pain. Past History - Medical History Allergies/Adverse Reactions: Allergies Allergy/AdvReac Type Severity Reaction Status Date / Time No Known Drug Allergies Allergy Verified 04/05/20 12:19 sesame seed Allergy Mild flushing, Uncoded 04/05/20 12:19 itch Home Medications: Ambulatory Orders Glimepiride 1 mg PO DAILY 06/20/18 Metoprolol Succinate [Toprol Xl] 50 mg PO BID 06/20/18 Multivitamin [One Daily] 1 each PO DAILY 06/20/18 Allopurinol [Zyloprim -] 100 mg PO DAILY 04/05/20 Atorvastatin Ca [Lipitor] 10 mg PO HS 04/05/20 Entacapone 200 mg PO QID 04/05/20 Losartan Potassium 25 mg PO DAILY 04/05/20 Anemia: No Asthma: No Cancer: No Cardiac Disorders: No CVA: No COPD: No CHF: No Dementia: No Diabetes: No GI Disorders: No Disorders: No HTN: Yes Hypercholesterolemia: No Liver Disease: No Seizures: No Thyroid Disease: No - Surgical History Abdominal Surgery: Yes (COLECTOMY) Appendectomy: Yes Cardiac Surgery: No Cholecystectomy: No Lung Surgery: No Neurologic Surgery: No Orthopedic Surgery: No - Immunization History Immunization Up to Date: No - Psycho-Social/Smoking History Smoking History: Never smoked Have you smoked in the past 12 months: No Review of Systems - Review of Systems Able to Perform ROS?: Yes Comments:: 04/05/20 13:03 Constitutional - no reported Fever, Chills, HEENT: no reported vision changes, sore throat Respiratory: no reported cough, sob, hemoptysis Cardiac: no reported chest pain, palpitations, light headedness, leg swelling Abd/GI: +L flank pain no reported abd pain, nausea, vomiting, blood per rectum, melena, diarrhea : no reported dysuria, frequency, discharge Musculskelatal - no reported back pain, joint swelling skin - no reported bruising, erythema, rash neurological: no reported headache, numbness, focal weakness, tingling, ataxia, hematologic: no reported easy bruising, easy bleeding *Physical Exam - Physical Exam 04/05/20 13:03 GENERAL: The patient is awake, alert, and fully oriented, +course motor movements (cw parkinsons), no acut edistress HEAD: Normocephalic, atraumatic. EYES: extraocular movements intact, sclera anicteric, conjunctiva clear. ENT: Normal voice, Moist mucous membranes. NECK: Normal range of motion, supple LUNGS: Breath sounds equal, clear to auscultation bilaterally. No wheezes, no rhonchi, no rales. HEART: Regular rate and rhythm, normal S1 and S2 without murmur, rub or gallop. ABDOMEN: Soft, nontender, No guarding, no rebound. No CVA tenderness, no rashes to affected area EXTREMITIES: Normal range of motion, no edema. NEUROLOGICAL: No facial assymetry, Normal speech, PSYCH: Normal mood, normal affect. SKIN: Warm, Dry, normal turgor, ED Treatment Course - LABORATORY CBC & Chemistry Diagram: 04/05/20 13:23 04/05/20 13:23 Medical Decision Making - Medical Decision Making 04/05/20 13:04 Differential for the patient's symptoms includes possible pyelonephritis, kidney stones, muscular skeletal pain. Will obtain blood work, will obtain imaging to rule out kidney stone. 04/05/20 16:00 Is the patient's blood work was reviewed no signs of leukocytosis, kidney functions are normal. The patient has no signs of UTI in her urine although this may be false as she is already on antibiotics. The patient continue taking her antibiotics, the CT was reviewed she does have nephrolithiasis however there is no signs of Obstruction, also no clinical nor CAT scan findings suggestive of pyelonephritis. I suspect that her flank pain is muscular in nature she is feeling significantly improved, no pain since arrival. Will discharge with PMD follow-up, return precautions were discussed I discussed the physical exam findings, ancillary test results and final diagnoses with the patient. I answered all of the patient's questions. The patient was satisfied with the care received and felt comfortable with the disch arge plan and treatment plan. The patient will call their primary care physician within 24 hours to arrange follow-up and will return to the Emergency Department with any new, persistent or worsening symptoms. Discharge - Discharge Information Problems reviewed: Yes Clinical Impression/Diagnosis: Flank pain Condition: Improved Disposition: HOME - Admission No - Follow up/Referral - Patient Discharge Instructions Patient Printed Discharge Instructions: DI for Flank Pain Additional Instructions: Return to the emergency department immediately with ANY new, persistent or worsening symptoms Including any worsening pain, fevers, chills or any other concerns. I suspect that your symptoms may be due to muscular pain. Take motrin eveyr 6 hours as needed. Continue taking your antibiotics You MUST call and follow up with your doctor tomorrow for further evaluation of your symptoms. Results were discussed with you. Please make sure your doctor reviews the results of your emergency evaluation. Your Emergency Department visit is not complete without a follow up with your doctor. Print Language: CZECH - Post Discharge Activity
[2020-04-05 12:42] VITALS: BP 148/85; PULSE 78; TEMP 98.2; BMI 26.6
[2020-04-05] MEDS ORDERED: IBUPROFEN 400 MG TABLET (FP) PO ONE (13:04)
[2020-04-05 13:53] LABS: ALBUMIN 4.1 g/dl (3.4-5.0); ALK PHOS 79 U/L (45-117); ANION GAP 7 MMOL/L (8-16); BILIRUBIN,TOTAL 1.2 mg/dl (0.2-1); CALCIUM 8.9 mg/dl (8.5-10); CHLORIDE 108 mmol/L (98-107); CO2 23 mmol/L (21-32); CREATININE 0.8 mg/dl (0.55-1.3); GLUCOSE,RANDOM 78 mg/dl (74-106); SGOT/AST 19 U/L (15-37); SODIUM 138 mmol/L (136-145); TOT PROT 6.8 g/dl (6.4-8.2)
[2020-04-05 13:58] LABS: BASO % 0.5 % (0-2.0); EOS % 0.5 % (0-4.5); HEMOGLOBIN 13.8 GM/dl (10.7-15.3); LYMPH % 25.1 % (8-40); MCHC 33.8 g/dl (32.0-36.0); MEAN CELL VOLUME 91.8 fl (80-96); MEAN PLT VOLUME 8.3 fl (7.5-11.1); MONO % 5.8 % (3.8-10.2); NEUT % 68.1 % (42.8-82.8); PLATELET COUNT 202 K/MM3 (134-434); RBC 4.46 M/mm3 (3.60-5.2); RDW 13.2 % (11.6-15.6); WHITE BLOOD COUNT 7.3 K/mm3 (4.0-10.8)
[2020-04-05 14:05] LABS: SGPT/ALT < 8 U/L (13-61)
[2020-04-05 14:14] LABS: EPITHELIAL CELLS FEW /hpf
== END 2020-04-05 16:12 | disposition home or self-care (01) ==
LOC: FER 12:14
DX: R10.9 Unspecified abdominal pain (principal)
CPT/HCPCS: 36415; 74176-TC; 80053; 81003; 81015; 85025; 87086; 99284-25

== ENCOUNTER 2021-04-01 06:21 | Day surgery (SDC) | payer OTHER ==
[2021-03-25 18:09] VITALS: BMI 29.0
[2021-04-01] MEDS ORDERED: MIDAZOLAM HCL 2 MG/2 ML SINGLE DOSE VIAL ONE (07:12)
[2021-04-01] MEDS ORDERED: PROPOFOL 20 ML ONE ×2 (07:12)
[2021-04-01] MEDS ORDERED: TETRACAINE 0.5% OPHTH SOLN 2 ML BOTTLE ONE (07:14)
[2021-04-01] MEDS ORDERED: ONDANSETRON 4 MG/2 ML VIAL ONE (07:14)
[2021-04-01] MEDS ORDERED: ceFAZolin SODIUM 1 GM VIAL ONE ×2 (07:14)
[2021-04-01] MEDS ORDERED: DEXAMETHASONE SOD PHOSPHATE 4 MG/1 ML VIAL ONE (07:14)
[2021-04-01] MEDS ORDERED: ERYTHROMYCIN 0.5% OPHTHALMIC OINTMENT 3.5 GM TUBE ONE (07:14)
[2021-04-01] MEDS ORDERED: LIDOCAINE 1%/EPI 1:100000 (20 ML MULTI DOSE VIAL) ONE (07:15)
[2021-04-01] MEDS ORDERED: BUPIVACAINE HCL 50 ML ONE (07:15)
[2021-04-01] MEDS ORDERED: POVIDONE-IODINE 5% OPHTHALMIC PREP 30 ML SOLUTION ONE (07:15)
[2021-04-01] MEDS ORDERED: oxyCODONE HCL 5 MG TABLET PO PRN (09:11)
[2021-04-01] MEDS ORDERED: ONDANSETRON 4 MG/2 ML VIAL IVPUSH PRN (09:11)
[2021-04-01] MEDS ORDERED: LACTATED RINGERS SOLUTION 1,000 ML IV SCH (09:15)
[2021-04-01 09:56] VITALS: TEMP 97.7
[2021-04-01 11:11] VITALS: BP 140/80; PULSE 84
== END 2021-04-01 11:05 | disposition home or self-care (01) ==
LOC: FASU 06:21
PROVIDERS: ATTEND Ophthalmology
PROC: 08SQ0ZZ Reposition Right Lower Eyelid, Open Approach (ICD-10-PCS; principal; 2021-04-01 08:10)
DX: H02.002 Unspecified entropion of right lower eyelid (principal)
CPT/HCPCS: 82962; 94760

== ENCOUNTER 2022-04-01 19:35 | Observation (INO) | payer OTHER, BC ==
[2022-04-01 21:45] LABS: BASO % 0.3 % (0-2.0); EOS % 0.5 % (0-4.5); HEMATOCRIT 40.6 % (32.4-45.2); HEMOGLOBIN 14.1 GM/dL (10.7-15.3); LYMPH % 22.1 % (8-40); MCH 30.9 pg (25.7-33.7); MCHC 34.8 g/dl (32.0-36.0); MEAN CELL VOLUME 88.7 fl (80-96); MEAN PLT VOLUME 7.8 fl (7.5-11.1); MONO % 6.5 % (3.8-10.2); NEUT % 70.6 % (42.8-82.8); PLATELET COUNT 216 10^3/uL (134-434); RBC 4.57 M/mm3 (3.60-5.2); RDW 13.6 % (11.6-15.6); WHITE BLOOD COUNT 9.5 K/mm3 (4.0-10.0)
[2022-04-01 22:40] LABS: CALCIUM 9.4 mg/dL (8.5-10.1)
[2022-04-01 22:41] LABS: ALBUMIN 4.1 g/dl (3.4-5.0); BLOOD UREA NITROGEN 20.6 mg/dL (7-18)
[2022-04-01 22:44] LABS: CREATININE 0.9 mg/dL (0.55-1.3)
[2022-04-01 22:46] LABS: TOT PROT 7.1 g/dl (6.4-8.2)
[2022-04-01 22:56] LABS: BILIRUBIN,TOTAL 0.8 mg/dL (0.2-1)
[2022-04-02] MEDS ORDERED: ACETAMINOPHEN 1000 MG/100 ML BAG IVPB ONE (02:00)
[2022-04-02] MEDS ORDERED: ACETAMINOPHEN INJECTION 100 ML IVPB ONE (02:03)
[2022-04-02] MEDS: ACETAMINOPHEN 1000 MG/100 ML BAG IVPB PRN (04:00)
[2022-04-02 05:18] VITALS: BMI 27.7
[2022-04-02] MEDS: INSULIN SLIDING SCALE (NOVOLOG) 1 VIAL SQ SCH ×4 (06:14→21:57)
[2022-04-02] MEDS: ENOXAPARIN NA (PORCINE) 40 MG/0.4 ML DISP.SYRIN SQ SCH (09:13)
[2022-04-02 09:27] LABS: PH,URINE 5.5 (5.0-8.0); URINE APPEARANCE CLOUDY; URINE BILIRUBIN NEGATIVE (NEGATIVE); URINE COLOR YELLOW; URINE GLUCOSE (UA) NEGATIVE (NEGATIVE); URINE KETONE TRACE (NEGATIVE); URINE LEUK ESTERASE NEGATIVE (NEGATIVE); URINE NITRITE NEGATIVE (NEGATIVE); URINE PROTEIN NEGATIVE (NEGATIVE)
[2022-04-02 09:40] LABS: EPI CELLS 3 /uL (0-25.1); HYALINE CASTS 2 /uL (0-3.1); URINE BACTERIA >9,000 /uL (0-1359); URINE RBC 2 /uL (0-23.9); URINE WBC 26 /uL (0-25.8)
[2022-04-02] MEDS: CEFTRIAXONE 1 GM in DEXTROSE 5%-WATER - 50 ML IVPB SCH (10:05)
[2022-04-02] MEDS: ESCITALOPRAM OXALATE 10 MG TABLET PO SCH (10:06)
[2022-04-02] MEDS: LOSARTAN POTASSIUM 25 MG TABLET PO SCH (10:06)
[2022-04-02 12:16] LABS: BASO % 0.6 % (0-2.0); EOS % 0.6 % (0-4.5); HEMATOCRIT 39.2 % (32.4-45.2); HEMOGLOBIN 13.6 GM/dL (10.7-15.3); LYMPH % 24.3 % (8-40); MCH 31.1 pg (25.7-33.7); MCHC 34.7 g/dl (32.0-36.0); MEAN CELL VOLUME 89.6 fl (80-96); MEAN PLT VOLUME 7.8 fl (7.5-11.1); MONO % 5.8 % (3.8-10.2); NEUT % 68.7 % (42.8-82.8); PLATELET COUNT 214 10^3/uL (134-434); RBC 4.37 M/mm3 (3.60-5.2); RDW 13.6 % (11.6-15.6); WHITE BLOOD COUNT 7.3 K/mm3 (4.0-10.0)
[2022-04-02] MEDS ORDERED: PATIENT'S OWN MEDICATION (NON-FORMULARY) (Carbidopa/Levodopa [Rytary Er 48.75 Mg-195 Mg Ca PO SCH (12:30)
[2022-04-02 12:44] LABS: ALBUMIN 3.7 g/dl (3.4-5.0); BLOOD UREA NITROGEN 19.2 mg/dL (7-18); CALCIUM 9.1 mg/dL (8.5-10.1); MAGNESIUM 2.3 mg/dL (1.8-2.4)
[2022-04-02 12:47] LABS: CREATININE 0.9 mg/dL (0.55-1.3); PHOSPHOROUS 3.1 mg/dL (2.5-4.9)
[2022-04-02 12:48] LABS: BILIRUBIN,TOTAL 0.9 mg/dL (0.2-1); TOT PROT 6.6 g/dl (6.4-8.2)
[2022-04-02 13:02] LABS: CHOLESTEROL 147 mg/dL (50-200)
[2022-04-02 13:03] LABS: LDL CHOLESTEROL (ONLY SJRH) 58 mg/dL (5-100); TRIGLYCERIDES 91 mg/dL (0-150)
[2022-04-02 13:06] LABS: HDL CHOLESTEROL 69 mg/dL (40-60)
[2022-04-02 15:25] LABS: EPI CELLS 16 /uL (0-25.1); HYALINE CASTS 1 /uL (0-3.1); PH,URINE 5.5 (5.0-8.0); URINE APPEARANCE CLOUDY; URINE BACTERIA >9,000 /uL (0-1359); URINE BILIRUBIN NEGATIVE (NEGATIVE); URINE COLOR YELLOW; URINE GLUCOSE (UA) TRACE (NEGATIVE); URINE KETONE NEGATIVE (NEGATIVE); URINE LEUK ESTERASE 1+ (NEGATIVE); URINE NITRITE NEGATIVE (NEGATIVE); URINE PROTEIN NEGATIVE (NEGATIVE); URINE RBC 3 /uL (0-23.9); URINE WBC 72 /uL (0-25.8)
[2022-04-02] MEDS: PATIENT'S OWN MEDICATION (NON-FORMULARY) (Carbidopa/Levodopa [Rytary Er 48.75 Mg-195 Mg Ca PO SCH ×2 (16:22→21:46)
[2022-04-02] MEDS: ATORVASTATIN CA 10 MG TABLET (FP) PO SCH (21:47)
[2022-04-03] MEDS: PATIENT'S OWN MEDICATION (NON-FORMULARY) (Carbidopa/Levodopa [Rytary Er 48.75 Mg-195 Mg Ca PO SCH ×6 (00:55→23:30)
[2022-04-03] MEDS: INSULIN SLIDING SCALE (NOVOLOG) 1 VIAL SQ SCH ×4 (06:27→21:00)
[2022-04-03] MEDS: ENOXAPARIN NA (PORCINE) 40 MG/0.4 ML DISP.SYRIN SQ SCH (10:04)
[2022-04-03] MEDS: CEFTRIAXONE 1 GM in DEXTROSE 5%-WATER - 50 ML IVPB SCH (10:04)
[2022-04-03] MEDS: LOSARTAN POTASSIUM 25 MG TABLET PO SCH (10:04)
[2022-04-03] MEDS: ESCITALOPRAM OXALATE 10 MG TABLET PO SCH (10:04)
[2022-04-03] MEDS: ACETAMINOPHEN 1000 MG/100 ML BAG IVPB PRN (13:57)
[2022-04-03] MEDS: ACETAMINOPHEN 325 MG TABLET (FP) PO PRN (20:58)
[2022-04-03] MEDS: ATORVASTATIN CA 10 MG TABLET (FP) PO SCH (21:00)
[2022-04-04] MEDS: INSULIN SLIDING SCALE (NOVOLOG) 1 VIAL SQ SCH ×4 (06:05→22:04)
[2022-04-04] MEDS: PATIENT'S OWN MEDICATION (NON-FORMULARY) (Carbidopa/Levodopa [Rytary Er 48.75 Mg-195 Mg Ca PO SCH ×5 (08:50→22:01)
[2022-04-04] MEDS: CEFTRIAXONE 1 GM in DEXTROSE 5%-WATER - 50 ML IVPB SCH (09:16)
[2022-04-04] MEDS: ENOXAPARIN NA (PORCINE) 40 MG/0.4 ML DISP.SYRIN SQ SCH (09:16)
[2022-04-04] MEDS: ESCITALOPRAM OXALATE 10 MG TABLET PO SCH (09:17)
[2022-04-04] MEDS: LOSARTAN POTASSIUM 25 MG TABLET PO SCH (09:17)
[2022-04-04] MEDS ORDERED: POLYETHYLENE GLYCOL (HEALTHYLAX) 3350 17 GM PACKET PO SCH (17:45)
[2022-04-04] MEDS ORDERED: DOCUSATE SODIUM 100 MG CAPSULE (FP) PO ONE (17:53)
[2022-04-04] MEDS ORDERED: DOCUSATE SODIUM 100 MG CAPSULE (FP) PO SCH (22:00)
[2022-04-04] MEDS: ATORVASTATIN CA 10 MG TABLET (FP) PO SCH (22:01)
[2022-04-05] MEDS: INSULIN SLIDING SCALE (NOVOLOG) 1 VIAL SQ SCH ×4 (06:39→21:39)
[2022-04-05] MEDS: PATIENT'S OWN MEDICATION (NON-FORMULARY) (Carbidopa/Levodopa [Rytary Er 48.75 Mg-195 Mg Ca PO SCH ×5 (08:23→22:18)
[2022-04-05 09:25] LABS: BASO % 0.3 % (0-2.0); EOS % 0.5 % (0-4.5); HEMATOCRIT 39.7 % (32.4-45.2); HEMOGLOBIN 13.8 GM/dL (10.7-15.3); LYMPH % 14.5 % (8-40); MCH 31.1 pg (25.7-33.7); MCHC 34.8 g/dl (32.0-36.0); MEAN CELL VOLUME 89.3 fl (80-96); MEAN PLT VOLUME 7.8 fl (7.5-11.1); MONO % 3.9 % (3.8-10.2); NEUT % 80.8 % (42.8-82.8); PLATELET COUNT 206 10^3/uL (134-434); RBC 4.45 M/mm3 (3.60-5.2); RDW 13.7 % (11.6-15.6)
[2022-04-05 09:51] LABS: ALBUMIN 3.7 g/dl (3.4-5.0); BLOOD UREA NITROGEN 27.6 mg/dL (7-18); CALCIUM 8.8 mg/dL (8.5-10.1); MAGNESIUM 2.1 mg/dL (1.8-2.4)
[2022-04-05 09:53] LABS: BILIRUBIN,TOTAL 1.2 mg/dL (0.2-1); TOT PROT 6.5 g/dl (6.4-8.2)
[2022-04-05 09:55] LABS: CREATININE 0.9 mg/dL (0.55-1.3)
[2022-04-05] MEDS ORDERED: POLYETHYLENE GLYCOL (HEALTHYLAX) 3350 17 GM PACKET PO SCH (10:00)
[2022-04-05] MEDS: CEPHALEXIN MONOHYDRATE 500 MG CAPSULE (UD) PO SCH ×2 (10:17→21:39)
[2022-04-05] MEDS: ENOXAPARIN NA (PORCINE) 40 MG/0.4 ML DISP.SYRIN SQ SCH (10:17)
[2022-04-05] MEDS: LOSARTAN POTASSIUM 25 MG TABLET PO SCH (10:17)
[2022-04-05] MEDS: ESCITALOPRAM OXALATE 10 MG TABLET PO SCH (10:17)
[2022-04-05] MEDS ORDERED: POTASSIUM CHLORIDE TABS 20 MEQ TABLET.ER (FP) PO ONE (13:25)
[2022-04-05] MEDS: ACETAMINOPHEN 325 MG TABLET (FP) PO PRN (13:46)
[2022-04-05] MEDS: ATORVASTATIN CA 10 MG TABLET (FP) PO SCH (21:38)
[2022-04-05] MEDS: DOCUSATE SODIUM 100 MG CAPSULE (FP) PO SCH (21:39)
[2022-04-06] MEDS: INSULIN SLIDING SCALE (NOVOLOG) 1 VIAL SQ SCH ×4 (06:08→21:32)
[2022-04-06] MEDS: LOSARTAN POTASSIUM 25 MG TABLET PO SCH (09:41)
[2022-04-06] MEDS: ESCITALOPRAM OXALATE 10 MG TABLET PO SCH (09:41)
[2022-04-06] MEDS: CEPHALEXIN MONOHYDRATE 500 MG CAPSULE (UD) PO SCH ×2 (09:41→21:32)
[2022-04-06] MEDS: ENOXAPARIN NA (PORCINE) 40 MG/0.4 ML DISP.SYRIN SQ SCH (09:42)
[2022-04-06] MEDS: PATIENT'S OWN MEDICATION (NON-FORMULARY) (Carbidopa/Levodopa [Rytary Er 48.75 Mg-195 Mg Ca PO SCH ×5 (09:42→23:48)
[2022-04-06 09:43] LABS: BASO % 0.4 % (0-2.0); HEMOGLOBIN 14.3 GM/dL (10.7-15.3); LYMPH % 23.2 % (8-40); MCH 31.3 pg (25.7-33.7); MCHC 34.8 g/dl (32.0-36.0); MONO % 6.6 % (3.8-10.2); NEUT % 67.8 % (42.8-82.8); PLATELET COUNT 205 10^3/uL (134-434); RBC 4.56 M/mm3 (3.60-5.2); RDW 13.7 % (11.6-15.6); WHITE BLOOD COUNT 8.5 K/mm3 (4.0-10.0)
[2022-04-06 10:07] LABS: CALCIUM 8.9 mg/dL (8.5-10.1)
[2022-04-06 10:08] LABS: ALBUMIN 3.6 g/dl (3.4-5.0); BLOOD UREA NITROGEN 23.1 mg/dL (7-18); MAGNESIUM 2.5 mg/dL (1.8-2.4)
[2022-04-06 10:10] LABS: CREATININE 0.7 mg/dL (0.55-1.3)
[2022-04-06 10:12] LABS: BILIRUBIN,TOTAL 0.9 mg/dL (0.2-1); TOT PROT 6.6 g/dl (6.4-8.2)
[2022-04-06] MEDS: DOCUSATE SODIUM 100 MG CAPSULE (FP) PO SCH (21:28)
[2022-04-06] MEDS: ATORVASTATIN CA 10 MG TABLET (FP) PO SCH (21:32)
[2022-04-07] MEDS: INSULIN SLIDING SCALE (NOVOLOG) 1 VIAL SQ SCH ×2 (06:16→12:01)
[2022-04-07] MEDS: PATIENT'S OWN MEDICATION (NON-FORMULARY) (Carbidopa/Levodopa [Rytary Er 48.75 Mg-195 Mg Ca PO SCH ×2 (08:19→12:09)
[2022-04-07 08:23] LABS: BASO % 0.6 % (0-2.0); EOS % 2.7 % (0-4.5); HEMATOCRIT 40.5 % (32.4-45.2); HEMOGLOBIN 13.4 GM/dL (10.7-15.3); LYMPH % 27.1 % (8-40); MCH 30.2 pg (25.7-33.7); MCHC 33.1 g/dl (32.0-36.0); MEAN CELL VOLUME 91.2 fl (80-96); MEAN PLT VOLUME 8.3 fl (7.5-11.1); MONO % 6.7 % (3.8-10.2); NEUT % 62.9 % (42.8-82.8); PLATELET COUNT 178 10^3/uL (134-434); RBC 4.44 M/mm3 (3.60-5.2); RDW 14.1 % (11.6-15.6); WHITE BLOOD COUNT 6.1 K/mm3 (4.0-10.0)
[2022-04-07 08:43] LABS: CALCIUM 8.9 mg/dL (8.5-10.1)
[2022-04-07 08:44] LABS: ALBUMIN 3.4 g/dl (3.4-5.0); BLOOD UREA NITROGEN 29.3 mg/dL (7-18); MAGNESIUM 2.3 mg/dL (1.8-2.4)
[2022-04-07 08:47] LABS: CREATININE 0.8 mg/dL (0.55-1.3)
[2022-04-07 08:49] LABS: BILIRUBIN,TOTAL 0.7 mg/dL (0.2-1)
[2022-04-07] MEDS: CEPHALEXIN MONOHYDRATE 500 MG CAPSULE (UD) PO SCH (09:40)
[2022-04-07] MEDS: ESCITALOPRAM OXALATE 10 MG TABLET PO SCH (09:40)
[2022-04-07] MEDS: ENOXAPARIN NA (PORCINE) 40 MG/0.4 ML DISP.SYRIN SQ SCH (09:41)
[2022-04-07] MEDS: LOSARTAN POTASSIUM 25 MG TABLET PO SCH (09:41)
[2022-04-07 10:50] VITALS: RESP 18
[2022-04-07 11:45] VITALS: BP 133/85; PULSE 70; TEMP 98.7
== END 2022-04-07 13:20 ==
LOC: JER 19:35 → JERBED 22:08 → J4S 04-02 01:04
PROVIDERS: ADMIT Internal Medicine; ATTEND Nurse Practitioner Family
PROC: 3E033NZ Introduction of Analgesics, Hypnotics, Sedatives into Peripheral Vein, Percutaneous Approach (ICD-10-PCS; principal; 2022-04-01)
PROC: 3E03329 Introduction of Other Anti-infective into Peripheral Vein, Percutaneous Approach (ICD-10-PCS; 2022-04-01)
PROC: 3E023GC Introduction of Other Therapeutic Substance into Muscle, Percutaneous Approach (ICD-10-PCS; 2022-04-01)
PROC: 3E013VG Introduction of Insulin into Subcutaneous Tissue, Percutaneous Approach (ICD-10-PCS; 2022-04-01)
DX: N39.0 Urinary tract infection, site not specified (principal); S01.411A Laceration without foreign body of right cheek and temporomandibular area, initial encounter; S00.83XA Contusion of other part of head, initial encounter; W18.39XA Other fall on same level, initial encounter; Y93.89 Activity, other specified; Y92.000 Kitchen of unspecified non-institutional (private) residence as the place of occurrence of the external cause; Z29.8 Encounter for other specified prophylactic measures; E11.9 Type 2 diabetes mellitus without complications; I10 Essential (primary) hypertension; G20 Parkinson's disease; R55 Syncope and collapse
CPT/HCPCS: 0241U-QW; 36415; 70450-TC; 70486-TC; 71045-TC-FY; 72125-TC; 73564-TC-LT-FY; 73564-TC-RT-FY; 80053; 80061; 81003; 82962; 83036; 83735; 84100; 84443; 84484; 85025; 85027; 87086; 87186; 93005; 93010; 93306-TC; 93880-TC; 96365; 96372; 96375; 97116-GP; 97161-GP; 99285-25; C9803-CS; G0378; U0003; U0005

== ENCOUNTER 2022-07-05 10:45 | Emergency (ER) | payer OTHER, BC ==
[2022-07-05 11:05] VITALS: RESP 18; TEMP 98; BMI 26.1
[2022-07-05 13:27] VITALS: BP 159/95; PULSE 101
== END 2022-07-05 13:27 | disposition home or self-care (01) ==
LOC: FER 10:45
DX: S00.03XA Contusion of scalp, initial encounter (principal); W01.0XXA Fall on same level from slipping, tripping and stumbling without subsequent striking against object, initial encounter
CPT/HCPCS: 70450-TC; 70486-TC; 73060-TC-LT-FY; 99285-25